=== PATIENT | male | born 1945 | race Caucasian/White ===

== ENCOUNTER 2022-12-03 11:17 | Inpatient (IN) | payer MEDICARE, BC, SELFPAY ==
[2022-12-03] VITALS (15 sets, daily range): BP systolic 91–131; BP diastolic 56–86; PULSE 75–107; RESP 13–23; TEMP 37.8–39.4; O2SAT 96–100; BMI 26.8
--- NOTE | ~2022-12-03 | XR_ITS ---
EXAMINATION: XR retrograde pyelo w/stent RT DATE: 12/04/2022 16:46 INDICATION: Right internal ureteral stent placement TECHNIQUE: Fluoroscopic images from a right internal ureteral stent placement are submitted for sharif dorman 23 seconds of fluoroscopy time. 4 fluoroscopic images. FINDINGS: There is a right double-J internal ureteral stent projecting in expected position, with proximal Crowell loop at the level of the renal pelvis and distal loop in the pelvis within the bladder lumen. IMPRESSION: 1. Right internal ureteral stent placement. Please refer to real-time procedural findings for mimi keita. Reviewed, dictated and finalized at location A. IMPRESSION: 1. Right internal ureteral stent placement. Please refer to real-time procedu ral findings for details.
--- NOTE | ~2022-12-03 | CT_ITS ---
EXAMINATION: CT abdomen pelvis w con DATE: 12/03/2022 14:13 INDICATION: Right flank pain. Fever. TECHNIQUE: Computed tomography (CT) of the abdomen and pelvis was performed with 100 mL Omnipaque 350 intravenous contrast. Automated exposure control and iterative reconstruction technique were employe d. The dose-length product was 657.44 mGy-cm. COMPARISON: None. FINDINGS: The visualized portions of the lung bases demonstrate mild atelectasis. There is mild scarr ing and bronchiectasis in right middle lobe. No pleural effusion. The heart size is normal. There is a small pericardial effusion. There are coronary artery calcifications. Median sternotomy wires are n oted. There is a small sliding hiatal hernia. Calcifications in the liver and spleen are consistent w ith old granulomatous disease. There are cysts in the liver measuring up to 6 mm. There are gallstone s in the gallbladder, which is normal in size. The pancreas and adrenal glands are normal. There is c ortical thinning of the kidneys. There are cysts in the kidneys measuring up to 4.1 cm on the left. T here is moderate right hydronephrosis and hydroureter. The distal right ureter is small in caliber. T here are changes of prostatectomy. There is diffuse bladder wall thickening. There are bilateral ingu inal hernias containing fat. Stool distends the rectum. There is diverticulosis of the colon without evidence of diverticulitis. The appendix is not visualized. There is calcified atherosclerosis of the aorta and many of the other arteries. There are no pathologically enlarged lymph nodes. There is no free intraperitoneal fluid. There are chronic bilateral L5 pars defects. There is 11 mm anterolisthes is of L5 on S1. There is severe lumbar spondylosis. IMPRESSION: 1. Small pericardial effusion. 2. Moderate right hydronephrosis and hydroureter, which may be secondary to distal stricture. No abno rmal mass or stone identified. 3. Diffuse bladder wall thickening, which may be secondary to chronic outlet obstruction or cystitis. 4. Bilateral inguinal hernias containing fat. Reviewed, dictated and finalized at location A. IMPRESSION: 1. Small pericardial effusion. 2. Moderate right hydronephrosis and hydroureter, which may be secondary to dis mark stricture. No abnormal mass or stone identified. 3. Diffuse bladder wall thickening, which may be secondary to chronic outlet ob struction or cystitis. 4. Bilateral inguinal hernias containing fat.
--- NOTE | ~2022-12-03 | XR_ITS ---
EXAMINATION: XR abdomen/kub 1V DATE: 12/05/2022 18:55 INDICATION: Abdominal pain TECHNIQUE: A supine view of the abdomen on 2 radiographs was obtained. COMPARISON: 12/04/2022 FINDINGS: Again seen is a right internal ureteral stent with loops formed in expected location of the right robles al pelvis and the bladder. No dilated loops of bowel to suggest obstruction. Likely suture anchors ar e seen at the bilateral pubic bodies. Small heterotopic ossicle projects of the right lower quadrant of the abdomen. Median sternotomy wires at the lower chest. Moderate to severe lower lumbar spondylos is. IMPRESSION: 1. Right internal ureteral stent in unchanged expected position. Reviewed, dictated and finalized at location A.
--- NOTE | ~2022-12-03 | XR_ITS ---
EXAMINATION: XR chest 2V DATE: 12/03/2022 13:04 INDICATION: Fever. TECHNIQUE: Frontal and lateral views of the chest were obtained. COMPARISON: None. FINDINGS: There are airspace opacities in right middle lobe. No pleural effusion or pneumothorax. The heart size is normal. Median sternotomy wires are noted. IMPRESSION: 1. Airspace opacities in right middle lobe, consistent with atelectasis versus pneumonia. Reviewed, dictated and finalized at location A.
[2022-12-03 11:45] LABS: Basophils Percent Auto 0.1 % (0.2-1.2); Hematocrit 30.7 % (42.0-52.0); Hemoglobin 10.1 g/dL (14.0-18.0); Immature Granulocyte Absolute 0.14 K/mm3 (0.00-0.031); Immature Granulocyte Percent A 0.9 % (0-0.5); Lymphocytes Absolute Auto 1.27 K/mm3 (0.9-3.2); Lymphocytes Percent Auto 8.3 % (18.3-44.2); Mean Corpuscular HGB Conc 32.9 g/dl (32-36); Mean Corpuscular Hemoglobin 31.2 pg (26-34); Mean Corpuscular Volume 94.8 fl (80-100); Mean Platelet Volume 8.4 fl (7.4-10.4); Monocytes Percent Auto 6.4 % (2.6-8.5); Neutrophils Absolute Auto 12.8 K/mm3 (1.3-6.7); Neutrophils Percent Auto 84.3 % (45.5-73.1); Platelet Count Result 211 k/mm3 (150-375); Red Blood Count 3.24 M/mm3 (4.6-6.20); Red Cell Distribution Width 15.7 % (11.5-14.5); White Blood Count 15.2 K/mm3 (4.5-10.0)
[2022-12-03 11:56] LABS: Alanine Aminotransferase 31 U/L (6-50); Alkaline Phosphatase 85 U/L (38-126); Anion Gap 13 mmol/L (8-16); Aspartate Amino Transferase 34 U/L (17-59); Blood Urea Nitrogen 33 mg/dL (9-20); Calcium 9.2 mg/dL (8.4-10.2); Carbon Dioxide 17 mmol/L (22-30); Chloride 107 mmol/L (98-107); Estimated CRCL calculation 38 ml/min; Estimated Glomerular Filt Rate 46; Glucose 131 mg/dL (65-110); Lipase 97 U/L (23-300); Potassium 3.7 mmol/L (3.4-5.0); Sodium 137 mmol/L (137-145)
[2022-12-03] MEDS: LACTATED RINGERS 1,000 ML 999 ML IV CONT ×2 (13:21→14:51)
[2022-12-03] MEDS: ONDANSETRON INJ 4 MG/2 ML VIAL IV PUSH (13:21)
--- NOTE | 2022-12-03 14:23 | ED.GENADULT ---
HPI - General Adult General Chief complaint: Nausea/Vomiting/Diarrhea Stated complaint: N/V X1D Time Seen by Provider: 12/03/22 12:32 Source: patient, family and RN notes reviewed Mode of arrival: ambulatory Limitations: no limitations History of Present Illness HPI narrative: This is a 76 year old male who presents for evaluation of right flank pain with nausea and vomiting. Patient states 3 weeks ago he was having fever, chills, dysuria and he was diagnosed with a UTI. He was prescribed an antibiotic and he states he completed the course 2 weeks ago. He states he felt better but yesterday he develop right flank pain with weakness and nausea with vomiting. He states his flank pain has resolved. He had nausea and vomiting today. He also reports dry cough for a few days. Patient found to have fever in ER. Patient has open heart surgery at [place] in August. Related Data Home Medications Medication Instructions Recorded Confirmed ascorbic acid (vitamin C) 500 mg 500 mg PO DAILY 02/08/19 02/08/19 capsule,extended release (Vitamin C) atorvastatin 40 mg tablet 40 mg PO DAILY 02/08/19 02/08/19 enalapril maleate 20 mg tablet 20 mg PO DAILY 02/08/19 02/08/19 flaxseed oil 1,000 mg capsule 1,000 mg PO DAILY 02/08/19 02/08/19 garlic 1,000 mg capsule 1,000 mg PO DAILY 02/08/19 02/08/19 glucosamine sulf dipot cap PO 02/08/19 chlr,msm,chond 550 mg-C 30 mg-ramo 1 mg capsule (Glucosamine Chondroitin) multivit with minerals-iron 18 tablet PO 02/08/19 mg-folic ac 400 mcg-vit K 25 mcg tablet (Multi-Day Plus Minerals) omega 1-pbn-qar-fish oil 1,000 mg 1 cap PO DAILY 02/08/19 02/08/19 (120 mg-180 mg) capsule (Fish Oil) valacyclovir 1 gram tablet 1,000 mg PO DAILY 02/08/19 02/08/19 vitamins A and D3 in cod liver oil cap PO 02/08/19 1,250 unit-135 unit capsule (cod liver oil) atorvastatin 40 mg tablet 40 mg PO DAILY 12/03/22 12/03/22 carvedilol 6.25 mg tablet 6.25 mg PO BID 12/03/22 12/03/22 melatonin 5 mg tablet 5 mg PO HS PRN Insomnia 12/03/22 12/03/22 Allergies Allergy/AdvReac Type Severity Reaction Status Date / Time Bumble Bee Allergy Unknown Swelling Uncoded 12/03/22 12:23 Review of Systems Constitutional: Constitutional: Reports chills and Reports weakness Cardiovascular: Cardiovascular: Denies syncope, Denies rapid heart rate, Denies irregular heart rhythm, Denies leg edema and Denies dyspnea Respiratory: Respiratory: Denies chest congestion, Denies hemoptysis, Denies excessive phlegm production and Denies dyspnea Gastrointestinal: Gastrointestinal: Denies abdominal pain, Denies hematochezia, Denies diarrhea, Reports nausea and Reports vomiting Genitourinary: Genitourinary: Denies hematuria, Reports dysuria, Denies penile discharge, Denies testicular pain and Reports urinary frequency Musculoskeletal: Musculoskeletal: Reports back pain, Denies joint swelling, Denies loss of height and Denies muscle weakness Neurologic: Denies syncope, Denies focal weakness and Denies weakness PMFSH Past Medical History Medical History Hyperlipidemia Hypertension DAVE (obstructive sleep apnea) Prostate CA Surgical History Surgical History (Updated 12/03/22 @ 14:25 by Arely Lewis MD) H/O prostatectomy Social History Social History (Updated 12/03/22 @ 14:25 by Arely Lewis MD) Smoking status: Never smoker Alcohol intake: never Substance use: never Substance use type: does not use Lack of Transportation: No Lack of Food: Never True Current Housing: I Have Housing Concerned About Future Housing: No Difficulty Paying Gas/Electric Bills: No Difficulty Paying for Meds: No Currently Unemployed: No Education: Decline to Answer Difficulty w/ Childcare or Family Care: No Gender identity (if verbalized by the patient): Male Spiritual care concerns: No Exam Const: General: no acute distress, alert and i
[2022-12-03 14:29] LABS: Influenza A QL RT-PCR Negative (Negative); Influenza B QL RT-PCR Negative (Negative); SARS-CoV-2 RNA PCR Negative (Negative)
[2022-12-03] MEDS: ACETAMINOPHEN 500 MG TABLET 1000 MG PO ×2 (14:48→19:56)
[2022-12-03 14:54] LABS: Appearance Urine Cloudy (Clear); Bacteria Urine None Seen /hpf; Bilirubin Urine Negative (Negative); Blood Urine 2+ (Negative); Color Urine Yellow (Yellow); Glucose Urine UA Negative (Negative); Ketones Urine Negative (Negative); Leukocyte Esterase Ur 2+ LEU/UL (Negative); Nitrate Urine Negative (Negative); Non Pathogenic Casts 0-2; Protein Urine 1+ mg/dL (Negative); RBC Urine 0-2 /hpf (0-2); Specific Grav Ur 1.025 (1.001-1.035); Squamous Epithelial Cell Urine None seen /hpf (Few); Urobilinogen Urine 0.2 mg/dL (<2.0); WBC Urine 21-50 /hpf
[2022-12-03 14:57] LABS: Add Urine Microscopic? YES
[2022-12-03 15:33] LABS: Lactic Acid Reflex 1.4 mmol/L (0.7-2.0)
--- NOTE | 2022-12-03 18:14 | PC.NURSE ---
Spoke with Jany MADRIGAL at [facility] transfer center regarding pt and was told that once they have a bed to release they will call back.
[2022-12-03] MEDS: SODIUM CHLORIDE 0.9% IV 1,000 ML 125 ML IV CONT (19:48)
--- NOTE | 2022-12-03 21:08 | ADMGEN ---
This patient, Dereje Aparicio, was admitted to 2 Medical Room 242-. Patient/family oriented to hospital policies and general routines including ID bracelet, bed and alarms, visiting hours, pain management, procedures, bathroom and other care routines, personal items, smoking policy, room service/diet, and visiting hours. Information on how to activate the Rapid Response Team has been discussed. Patient/Family are encouraged to report perceived risks to care and to ask questions if they do not understand what they are told or what they should do.
--- NOTE | 2022-12-03 21:33 | PM.IMHP ---
H&P: HPI History of Present Illness Date/Time: 12/03/22 21:33 Chief Complaint: Flank pain Narrative: This is a 76-year-old male with past medical history significant for dyslipidemia hypertension obstructive sleep apnea prostate cancer. Patient presents to the emergency room due to flank pain nausea vomiting fever had completed course of antibiotics in the outpatient setting. Patient usually gets his care at [place] and initial arrangements were to transfer patient over there however patient declined transfer to [facility] and is currently being admitted to our facility. Preliminary workup was significant for CBC with leukocyte count of 15,000, chemistry panel BUN was 33 creatinine 1.5 a urinalysis shows wbc's 21-50 white blood cells per high-power field EXAMINATION: XR chest 2V DATE: 12/03/2022 13:04 INDICATION: Fever. TECHNIQUE: Frontal and lateral views of the chest were obtained. COMPARISON: None. FINDINGS: There are airspace opacities in right middle lobe. No pleural effusion or pneumothorax. The heart size is normal. Median sternotomy wires are noted. IMPRESSION: 1. Airspace opacities in right middle lobe, consistent with atelectasis versus pneumonia. EXAMINATION: CT abdomen pelvis w con DATE: 12/03/2022 14:13 INDICATION: Right flank pain. Fever. TECHNIQUE: Computed tomography (CT) of the abdomen and pelvis was performed with 100 mL Omnipaque 350 intravenous contrast. Automated exposure control and iterative reconstruction technique were employed. The dose-length product was 657.44 mGy-cm. COMPARISON: None. FINDINGS: The visualized portions of the lung bases demonstrate mild atelectasis. There is mild scarring and bronchiectasis in right middle lobe. No pleural effusion. The heart size is normal. There is a small pericardial effusion. There are coronary artery calcifications. Median sternotomy wires are noted. There is a small sliding hiatal hernia. Calcifications in the liver and spleen are consistent with old granulomatous disease. There are cysts in the liver measuring up to 6 mm. There are gallstones in the gallbladder, which is normal in size. The pancreas and adrenal glands are normal. There is cortical thinning of the kidneys. There are cysts in the kidneys measuring up to 4.1 cm on the left. There is moderate right hydronephrosis and hydroureter. The distal right ureter is small in caliber. There are changes of prostatectomy. There is diffuse bladder wall thickening. There are bilateral inguinal hernias containing fat. Stool distends the rectum. There is diverticulosis of the colon without evidence of diverticulitis. The appendix is not visualized. There is calcified atherosclerosis of the aorta and many of the other arteries. There are no pathologically enlarged lymph nodes. There is no free intraperitoneal fluid. There are chronic bilateral L5 pars defects. There is 11 mm anterolisthesis of L5 on S1. There is severe lumbar spondylosis. IMPRESSION: 1. Small pericardial effusion. 2. Moderate right hydronephrosis and hydroureter, which may be secondary to distal stricture. No abnormal mass or stone identified. 3. Diffuse bladder wall thickening, which may be secondary to chronic outlet obstruction or cystitis. 4. Bilateral inguinal hernias containing fat. Review of Systems Review of Systems: ROS unobtainable: Yes unobtainable due to mental status (Lethargy/obtundation) [facility] Past Medical History Medical History (Updated 12/04/22 @ 05:17 by Johana Kaur MD) Hyperlipidemia Hypertension DAVE (obstructive sleep apnea) Prostate CA Surgical History Surgical History (Updated 12/03/22 @ 14:25 by Arely Lewis MD) H/O prostatectomy Social History Social History (Updated 12/03/22 @ 14:25 by Arely Lewis MD) Smoking status: Never smoker Alcohol intake: never Substance use: never Substance use type: does not use Lack of Transportation: No Lack of Food: Never True Current
--- NOTE | 2022-12-03 22:06 | PC.NURSE ---
Went to do med rec with patient. States he doesn't know what medications he takes and we can just do it tomorrow .
[2022-12-04] VITALS (14 sets, daily range): BP systolic 93–122; BP diastolic 51–66; PULSE 60–97; RESP 14–32; TEMP 36.7–38.5; O2SAT 95–100; BMI 26.8
[2022-12-04] MEDS: SODIUM CHLORIDE 0.9% IV 1,000 ML 125 ML IV CONT ×2 (04:03→17:59)
--- NOTE | 2022-12-04 04:30 | WPDURCON ---
Assessment and Plan Assessment and plan (1) Hydronephrosis, right: Code(s): N13.30 - Unspecified hydronephrosis Status: Acute (2) JUAN (acute kidney injury): Code(s): N17.9 - Acute kidney failure, unspecified Status: Acute (3) Acute UTI: Code(s): N39.0 - Urinary tract infection, site not specified Status: Acute Assessment and Plan: Acute, febrile urinary tract infection with right hydronephrosis likely secondary to mid ureteral stricture Patient has reluctance to proceed with ureteral stent placement given his history of strep intolerance in the past. I offered him a percutaneous nephrostomy but, ultimately, we elected for cystoscopy with right ureteral stent placement In the future he will need more aggressive intervention for his right ureteral obstruction which appears to be from a ureteral stricture (based on patient's prior history and CT findings) Plan Urology Consult Note HPI Date Seen: 12/04/22 Requesting Physician: Johana Kaur MD Primary Care Provider: Walter Marrero, Consult Narrative Narrative: Dereje Aparicio is a 76 year old male with a fairly extensive urological history, most of which she has been cared for [facility]. In the past he has had a left percutaneous nephrolithotomy for a large stone. More recently he has undergone right ureteroscopy with laser lithotripsy for right ureteral stone. Following that he developed ureteral stricture. There was consideration for endoscopic ureteral dilatation with stent placement. The patient opted against because of his anesthesia risk. He also reports measurable stent irritation with indwelling stents in the past. He presents to the emergency department here with fevers chills nausea vomiting and right flank pain. Imaging demonstrates moderate right hydroureteronephrosis with apparent stricture and the mid distal right ureter. Review of Systems Review of Systems: All systems reviewed & are unremarkable except as noted in HPI and below PMFSH Past Medical History Medical History Hyperlipidemia Hypertension DAVE (obstructive sleep apnea) Prostate CA Surgical History Surgical History (Updated 12/03/22 @ 14:25 by Arely Lewis MD) H/O prostatectomy Social History Social History (Updated 12/03/22 @ 14:25 by Arely Lewis MD) Smoking status: Never smoker Alcohol intake: never Substance use: never Substance use type: does not use Lack of Transportation: No Lack of Food: Never True Current Housing: I Have Housing Concerned About Future Housing: No Difficulty Paying Gas/Electric Bills: No Difficulty Paying for Meds: No Currently Unemployed: No Education: Decline to Answer Difficulty w/ Childcare or Family Care: No Gender identity (if verbalized by the patient): Male Spiritual care concerns: No Meds Home Medications and Allergies Home Medications Medication Instructions Recorded Confirmed Type ascorbic acid (vitamin C) 500 mg 500 mg PO DAILY 02/08/19 02/08/19 History capsule,extended release (Vitamin C) atorvastatin 40 mg tablet 40 mg PO DAILY 02/08/19 02/08/19 History enalapril maleate 20 mg tablet 20 mg PO DAILY 02/08/19 02/08/19 History flaxseed oil 1,000 mg capsule 1,000 mg PO DAILY 02/08/19 02/08/19 History garlic 1,000 mg capsule 1,000 mg PO DAILY 02/08/19 02/08/19 History glucosamine sulf dipot cap PO 02/08/19 History chlr,msm,chond 550 mg-C 30 mg-ramo 1 mg capsule (Glucosamine Chondroitin) multivit with minerals-iron 18 tablet PO 02/08/19 History mg-folic ac 400 mcg-vit K 25 mcg tablet (Multi-Day Plus Minerals) omega 1-jbo-bjq-fish oil 1,000 mg 1 cap PO DAILY 02/08/19 02/08/19 History (120 mg-180 mg) capsule (Fish Oil) valacyclovir 1 gram tablet 1,000 mg PO DAILY 02/08/19 02/08/19 History vitamins A and D3 in cod liver oil cap PO 02/08/19 History 1,
[2022-12-04] MEDS: cefTRIAXone 2 GM/NS 100 ML 2 GM/100 ML BAG IVPB (04:31)
--- NOTE | 2022-12-04 04:35 | WPDHPUPDATE1 ---
History and Physical Update Update Date/Time: 12/04/22 04:35 History and Physical has been reviewed, including an updated exam of the patient. There are NO changes in the patient's condition. Risks, benefits, and alternatives have been discussed and questions answered. Patient agrees to proceed with procedure.
[2022-12-04 05:14] LABS: Basophils Percent Auto 0.2 % (0.2-1.2); Hematocrit 28.1 % (42.0-52.0); Hemoglobin 8.9 g/dL (14.0-18.0); Immature Granulocyte Absolute 0.27 K/mm3 (0.00-0.031); Immature Granulocyte Percent A 2.7 % (0-0.5); Lymphocytes Absolute Auto 0.98 K/mm3 (0.9-3.2); Lymphocytes Percent Auto 9.7 % (18.3-44.2); Mean Corpuscular HGB Conc 31.7 g/dl (32-36); Mean Corpuscular Hemoglobin 31.4 pg (26-34); Mean Corpuscular Volume 99.3 fl (80-100); Mean Platelet Volume 9.4 fl (7.4-10.4); Monocytes Absolute Auto 0.8 K/mm3 (0.1-0.6); Monocytes Percent Auto 7.9 % (2.6-8.5); Neutrophils Absolute Auto 8.1 K/mm3 (1.3-6.7); Neutrophils Percent Auto 79.5 % (45.5-73.1); Platelet Count Result 131 k/mm3 (150-375); Red Blood Count 2.83 M/mm3 (4.6-6.20); Red Cell Distribution Width 15.5 % (11.5-14.5); White Blood Count 10.1 K/mm3 (4.5-10.0)
[2022-12-04] MEDS: AZITHROMYCIN 500 MG/NS 250 ML 500 MG/250 ML BAG 250 MG IVPB (05:14)
[2022-12-04 05:33] LABS: Alanine Aminotransferase 25 U/L (6-50); Albumin Level 3.3 g/dL (3.5-5.1); Alkaline Phosphatase 72 U/L (38-126); Anion Gap 10 mmol/L (8-16); Aspartate Amino Transferase 25 U/L (17-59); Bilirubin,Total 0.8 mg/dL (0.2-1.3); Blood Urea Nitrogen 27 mg/dL (9-20); Calcium 8.1 mg/dL (8.4-10.2); Carbon Dioxide 17 mmol/L (22-30); Chloride 109 mmol/L (98-107); Estimated CRCL calculation 43 ml/min; Estimated Glomerular Filt Rate 54; Glucose 109 mg/dL (65-110); Potassium 3.2 mmol/L (3.4-5.0); Sodium 136 mmol/L (137-145)
[2022-12-04] MEDS: ACETAMINOPHEN 325 MG TABLET 650 MG PO ×2 (08:36→17:08)
--- NOTE | 2022-12-04 12:59 | PM.IMPN ---
Progress Note: A&P Assessment and Plan (1) Sepsis: Code(s): A41.9 - Sepsis, unspecified organism Status: Acute Assessment and Plan: Secondary to UTI. Antibiotic therapy initiated. Continue IV fluids (2) Acute UTI: Code(s): N39.0 - Urinary tract infection, site not specified Status: Acute Assessment and Plan: UA with 2+ leukocyte esterase, 2+ blood and 21-50 wbc's. Rocephin started. Urine culture pending. Tailor antibiotics to culture results. (3) Hydronephrosis, right: Code(s): N13.30 - Unspecified hydronephrosis Status: Acute Assessment and Plan: CT scan showing mild ureteral stricture Urology has been consulted Plan for ureteral stent placement today. (4) JUAN (acute kidney injury): Code(s): N17.9 - Acute kidney failure, unspecified Status: Acute Assessment and Plan: Receiving IV fluids Continue to monitor BUN and creatinine Will hold enalapril (5) Lung infiltrate: Code(s): R91.8 - Other nonspecific abnormal finding of lung field Status: Acute Assessment and Plan: Chest x-ray showing atelectasis versus pneumonia. On Rocephin and Zithromax Subjective Date/time seen: 12/04/22 12:59 Interval history: Patient doing well and has minimal complaints. Plan for stent placement today. Exam Narrative: GENERAL: Comfortable, no acute distress HENMT: moist mucous membranes EYES: EOM intact b/l NECK: no lymphadenopathy RESPIRATORY: clear to auscultation CARDIO: RRR GI: soft, nontender, bowel sounds present SKIN: no rashes EXTREMITIES: no edema, redness or tenderness Objective Data Vital Signs Vital Signs: Vital Signs - 24 hr 12/03/22 13:25 12/03/22 13:26 12/03/22 13:28 Temperature Pulse Rate 95 100 105 H Respiratory Rate Blood Pressure 109/65 102/62 91/68 L Pulse Oximetry Oxygen Delivery 12/03/22 13:32 12/03/22 14:52 12/03/22 15:19 Temperature Pulse Rate 99 98 99 Respiratory Rate 15 18 15 Blood Pressure 118/59 L 117/61 108/60 Pulse Oximetry 99 100 97 Oxygen Delivery 12/03/22 15:58 12/03/22 16:32 12/03/22 18:09 Temperature Pulse Rate 97 94 97 Respiratory Rate 18 13 15 Blood Pressure 110/64 101/64 127/60 Pulse Oximetry 96 97 99 Oxygen Delivery 12/03/22 18:45 12/03/22 19:47 12/03/22 20:47 Temperature 102.4 F H 102.9 F H Pulse Rate 97 105 H 75 Respiratory Rate 14 17 15 Blood Pressure 131/69 128/67 129/86 Pulse Oximetry 99 98 100 Oxygen Delivery 12/03/22 21:17 12/03/22 21:17 12/04/22 06:00 Temperature 100.1 F H 99.8 F H Pulse Rate 97 97 Respiratory Rate 18 18 Blood Pressure 113/61 118/63 Pulse Oximetry 98 95 Oxygen Delivery Room Air 12/04/22 08:36 12/04/22 09:34 12/04/22 09:42 Temperature 100.4 F H 98.2 F Pulse Rate Respiratory Rate Blood Pressure Pulse Oximetry 96 Oxygen Delivery Room Air Intake/Output Intake/Output: Intake & Output 12/01/22 12/02/22 12/03/22 12/04/22 23:59 23:59 23:59 23:59 Intake Total 2049 1719 Balance 2049 172 Meds/Results Medications: Active Medications Generic Name Dose Route Start Last Admin Trade Name Freq PRN Reason Stop Dose Admin Acetaminophen 650 mg 12/04/22 02:00 12/04/22 08:36 Acetaminophen 325 Mg Tablet PO 650 mg Q4H PRN Administration Mild Pain (1-3) or Fever Sodium Chloride 1,000 mls @ 125 mls/hr 12/03/22 19:10 12/04/22 04:03 Normal Saline Iv IV CONT 125 mls/hr .Q8H ELLY Administration Ceftriaxone Sodium 2 gm in 100 mls @ 200 mls/hr 12/04/22 04:00 12/04/22 05:15 Rocephin 2 Gm/Ns 100 Ml IVPB Infused Q24H ELLY Infusion Azithromycin 500 mg in 250 mls @ 250 mls/hr 12/04/22 04:00 12/04/22 05:14 Zithromax IVPB 250 mls/hr Q24H ELLY Administration Ondansetron HCl 4 mg 12/03/22 19:10 Ondansetron Inj 4 Mg/2 Ml Vial IV PUSH Q4H PRN Nausea
--- NOTE | 2022-12-04 14:49 | PC.NURSE ---
To OR. Report given to KAITLIN Champion.
--- NOTE | 2022-12-04 14:57 | WPDANESEPPF ---
Anes - Initial Pre Proc Eval Procedure: Operation Date: 12/04/22 17:00 Proposed Procedures p Cystoscopy,Right Stent Placement - Samm Lees MD Date/Time: 12/04/22 14:57 Surgeon: Johana Kaur MD Pre Op Diagnosis: Sepsis, UTI, Right Obstructive Uropathy Patient Data Age: 76 Gender: M Height: 1.73 m Weight: 80 kg Last Vital Signs Temp 36.8 C 12/04/22 09:34 Pulse 97 12/04/22 06:00 Resp 18 12/04/22 06:00 BP 118/63 12/04/22 06:00 Pulse Ox 96 12/04/22 09:42 O2 Del Method Room Air 12/04/22 09:42 Allergies Allergy/AdvReac Type Severity Reaction Status Date / Time Bumble Bee Allergy Unknown Swelling Uncoded 12/03/22 12:23 Home Medications Medication Instructions Recorded Confirmed Type ascorbic acid (vitamin C) 500 mg 500 mg PO DAILY 02/08/19 02/08/19 History capsule,extended release (Vitamin C) atorvastatin 40 mg tablet 40 mg PO DAILY 02/08/19 02/08/19 History enalapril maleate 20 mg tablet 20 mg PO DAILY 02/08/19 02/08/19 History flaxseed oil 1,000 mg capsule 1,000 mg PO DAILY 02/08/19 02/08/19 History garlic 1,000 mg capsule 1,000 mg PO DAILY 02/08/19 02/08/19 History glucosamine sulf dipot cap PO 02/08/19 History chlr,msm,chond 550 mg-C 30 mg-ramo 1 mg capsule (Glucosamine Chondroitin) multivit with minerals-iron 18 tablet PO 02/08/19 History mg-folic ac 400 mcg-vit K 25 mcg tablet (Multi-Day Plus Minerals) omega 0-yfb-zvm-fish oil 1,000 mg 1 cap PO DAILY 02/08/19 02/08/19 History (120 mg-180 mg) capsule (Fish Oil) valacyclovir 1 gram tablet 1,000 mg PO DAILY 02/08/19 02/08/19 History vitamins A and D3 in cod liver oil cap PO 02/08/19 History 1,250 unit-135 unit capsule (cod liver oil) atorvastatin 40 mg tablet 40 mg PO DAILY 12/03/22 12/03/22 History carvedilol 6.25 mg tablet 6.25 mg PO BID 12/03/22 12/03/22 History melatonin 5 mg tablet 5 mg PO HS PRN Insomnia 12/03/22 12/03/22 History Laboratory Tests 12/03/22 12/03/22 12/03/22 11:39 14:43 15:16 WBC RBC Hgb Hct MCV MCH MCHC RDW Plt Count MPV Immature Gran % (Auto) Neut % (Auto) Lymph % (Auto) [place] % (Auto) Eos % (Auto) Baso % (Auto) Lymph # (Auto) [place] # (Auto) Eos # (Auto) Baso # (Auto) Abs Immat Gran (auto) Absolute Neuts (auto) Absolute Nucleated RBC Nucleated RBC % Sodium Potassium Chloride Carbon Dioxide Anion Gap BUN Creatinine Estim Creat Clear Calc Estimated GFR Glucose Lactic Acid 1.4 mmol/L (0.7-2.0) Calcium Total Bilirubin AST ALT Alkaline Phosphatase Total Protein Albumin Urine Color Yellow (Yellow) Urine Appearance Cloudy H (Clear) Urine pH 5.0 (5.0-9.0) Ur Specific [place] 1.025 (1.001-1.035) Urine Protein 1+ H mg/dL (Negative) Urine Glucose (UA) Negative mg/dL (Negative) Urine Ketones Negative mg/dL (Negative) Ur Blood (Man) 2+ H (Negative) Urine Nitrate Negative (Negative) Urine Bilirubin Negative (Negative) Urine Urobilinogen 0.2 mg/dL (<2.0) Leukocyte Esterase Rfl 2+ H RM/UL (Negative) Urine RBC 0-2 /hpf (0-2) Urine WBC 21-50 H /hpf Ur Squamous Epith Cells None seen /hpf (Few) Urine Bacteria None seen /hpf Urine Casts 0-2 Antibody Identification Inconclusive Antigen Identification TNP SHIRLEY, Complement Interp
--- NOTE | 2022-12-04 16:41 | W.PM.PROC2 ---
Procedure Note - Detailed Date of Procedure 12/04/22 Pre-op Diagnosis Sepsis, UTI, Right Obstructive Uropathy Post-op Diagnosis Same Procedure Performed Cystoscopy, right retrograde pyelography and right ureteral stent placement Surgeon Samm Lees MD Anesthesia General Description of Procedure patient is brought to the operative suite where he has prepped sterile fashion while in dorsal lithotomy position. 2% lidocaine jelly was introduced intraurethrally and a general LMA anesthetic was administered per anesthesia cystoscopy is undertaken with a 19 F rigid cystoscope. There was no urethral stricture. 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 There appears to be mild hyperemia in the posterior bladder wall consistent with radiation cystitis. Mucosa was, otherwise, without christina neoplasm. He has a single orthotopic orifice bilaterally. An 8 F bulb-tipped catheter was used to obtain a right retrograde pyelogram. This shows some narrowing of the distal ureters as it traverses the bladder wall. There also to perhaps be a second area of narrowing at the right UPJ. I opted not to pursue ureteroscopy given his infected urine. A 0.035 in glidewire was advanced to right renal pelvis and a 4.8F variable-length stent is position with proximal coil in the renal pelvis and distal coil in the bladder. Scopes and wires removed. The patient was taken recovery room having tolerated the procedure Pathology None sent Complications No immediate complications Condition Stable Disposition PACU
[2022-12-04] MEDS: LACTATED RINGERS 1,000 ML 30 ML IV CONT (16:46)
[2022-12-04] MEDS: HYOSCYAMINE SULFATE 0.125 MG TABLET PO (17:09)
--- NOTE | 2022-12-04 18:45 | PC.NURSE ---
Spoke to pharmacist at [facility] to attempt to have a completed home medication list. Unable to obtain all at this time.
[2022-12-04] MEDS: TAMSULOSIN HCL 0.4 MG CAPSULE PO (20:12)
[2022-12-05] VITALS (10 sets, daily range): BP systolic 112–138; BP diastolic 51–75; PULSE 42–86; RESP 14–18; TEMP 36.7–38.4; O2SAT 97–99
[2022-12-05] MEDS: ACETAMINOPHEN 325 MG TABLET 650 MG PO (01:14)
[2022-12-05] MEDS: SODIUM CHLORIDE 0.9% IV 1,000 ML 125 ML IV CONT (01:15)
[2022-12-05] MEDS: AZITHROMYCIN 500 MG/NS 250 ML 500 MG/250 ML BAG 250 MG IVPB (03:30)
[2022-12-05] MEDS: cefTRIAXone 2 GM/NS 100 ML 2 GM/100 ML BAG IVPB (04:37)
[2022-12-05 05:36] LABS: Hematocrit 23.4 % (42.0-52.0); Hemoglobin 7.3 g/dL (14.0-18.0); Mean Corpuscular HGB Conc 31.2 g/dl (32-36); Mean Corpuscular Hemoglobin 31.2 pg (26-34); Mean Platelet Volume 9.3 fl (7.4-10.4); Platelet Count Result 108 k/mm3 (150-375); Red Blood Count 2.34 M/mm3 (4.6-6.20); Red Cell Distribution Width 15.5 % (11.5-14.5)
[2022-12-05 05:48] LABS: Alanine Aminotransferase 25 U/L (6-50); Albumin Level 2.7 g/dL (3.5-5.1); Alkaline Phosphatase 67 U/L (38-126); Anion Gap 7 mmol/L (8-16); Aspartate Amino Transferase 32 U/L (17-59); Bilirubin,Total 0.4 mg/dL (0.2-1.3); Blood Urea Nitrogen 20 mg/dL (9-20); Carbon Dioxide 18 mmol/L (22-30); Chloride 111 mmol/L (98-107); Estimated CRCL calculation 47 ml/min; Estimated Glomerular Filt Rate 59; Glucose 95 mg/dL (65-110); Potassium 2.7 mmol/L (3.4-5.0); Sodium 136 mmol/L (137-145)
[2022-12-05] MEDS: KCL 20 MEQ/SW 100 ML 100 ML 50 MEQ IVPB (06:21)
[2022-12-05] MEDS: POTASSIUM CHLORIDE 20 MEQ PACKET (FOR LIQUID) 40 MEQ PO (06:22)
[2022-12-05] MEDS: amLODIPine BESYLATE 2.5 MG TABLET PO (09:01)
[2022-12-05] MEDS: carvediloL 6.25 MG TABLET PO (09:01)
[2022-12-05 12:02] LABS: Potassium 3.3 mmol/L (3.4-5.0)
[2022-12-05 12:07] LABS: Anion Gap 9 mmol/L (8-16); Blood Urea Nitrogen 18 mg/dL (9-20); Calcium 7.3 mg/dL (8.4-10.2); Carbon Dioxide 16 mmol/L (22-30); Chloride 112 mmol/L (98-107); Estimated CRCL calculation 47 ml/min; Estimated Glomerular Filt Rate 59; Glucose 115 mg/dL (65-110); Potassium 3.3 mmol/L (3.4-5.0); Sodium 137 mmol/L (137-145)
--- NOTE | 2022-12-05 13:17 | PM.IMPN ---
Progress Note: A&P Assessment and Plan (1) Sepsis: Code(s): A41.9 - Sepsis, unspecified organism Status: Acute Assessment and Plan: Secondary to UTI. Antibiotic therapy initiated. Continue IV fluids (2) Acute UTI: Code(s): N39.0 - Urinary tract infection, site not specified Status: Acute Assessment and Plan: UA with 2+ leukocyte esterase, 2+ blood and 21-50 wbc's. Rocephin started. Urine culture positive for Klebsiella pneumonia Tailor antibiotics to culture results. Blood cultures with g negative bacilli (3) Hydronephrosis, right: Code(s): N13.30 - Unspecified hydronephrosis Status: Acute Assessment and Plan: CT scan showing mild ureteral stricture Urology has been consulted Plan for ureteral stent placement today. (4) JUAN (acute kidney injury): Code(s): N17.9 - Acute kidney failure, unspecified Status: Acute Assessment and Plan: Receiving IV fluids Continue to monitor BUN and creatinine Will hold enalapril (5) Lung infiltrate: Code(s): R91.8 - Other nonspecific abnormal finding of lung field Status: Acute Assessment and Plan: Chest x-ray showing atelectasis versus pneumonia. On Rocephin and Zithromax Subjective Date/time seen: 12/05/22 13:17 Interval history: Patient doing well. He states that he is urinating without difficulty. He has not appetite and eating well. Currently waiting on blood cultures to return. Exam Narrative: GENERAL: Comfortable, no acute distress HENMT: moist mucous membranes EYES: EOM intact b/l NECK: no lymphadenopathy RESPIRATORY: clear to auscultation CARDIO: RRR GI: soft, nontender, bowel sounds present SKIN: no rashes EXTREMITIES: no edema, redness or tenderness Objective Data Vital Signs Vital Signs: Vital Signs - 24 hr 12/04/22 14:57 12/04/22 16:46 12/04/22 17:00 Temperature 101.3 F H 100.2 F H 100.3 F H Pulse Rate 94 89 88 Respiratory Rate 18 32 H 20 Blood Pressure 118/63 93/51 L 106/53 L Pulse Oximetry 96 100 100 Oxygen Delivery Room Air Simple Face Mask Simple Face Mask Oxygen Flow Rate 6 6 12/04/22 17:15 12/04/22 17:30 12/04/22 18:05 Temperature 99.9 F H 98.6 F Pulse Rate 82 78 79 Respiratory Rate 20 18 16 Blood Pressure 98/53 L 102/66 97/54 L Pulse Oximetry 97 97 98 Oxygen Delivery Room Air Room Air Oxygen Flow Rate 12/04/22 18:40 12/04/22 17:45 12/04/22 18:35 Temperature 98.1 F 98.8 F 98.2 F Pulse Rate 60 75 77 Respiratory Rate 14 16 18 Blood Pressure 122/61 107/60 108/61 Pulse Oximetry 100 97 98 Oxygen Delivery Oxygen Flow Rate 12/04/22 21:43 12/05/22 01:12 12/05/22 01:14 Temperature 99.5 F 101.2 F H 101.2 F H Pulse Rate 76 86 Respiratory Rate 16 16 Blood Pressure 103/56 L 134/71 Pulse Oximetry 99 98 Oxygen Delivery Oxygen Flow Rate 12/05/22 02:14 12/05/22 02:14 12/05/22 06:24 Temperature 99.8 F H 99.8 F H 98.0 F Pulse Rate 73 Respiratory Rate 14 Blood Pressure 137/75 Pulse Oximetry 99 Oxygen Delivery Oxygen Flow Rate 12/05/22 09:01 12/05/22 08:58 12/05/22 08:00 Temperature 98.2 F Pulse Rate 77 71 Respiratory Rate 18 Blood Pressure 113/63 Pulse Oximetry 97 Oxygen Delivery Room Air Oxygen Flow Rate Intake/Output Intake/Output: Intake & Output 12/02/22 12/03/22 12/04/22 12/05/22 23:59 23:59 23:59 23:59 Intake Total 0 3440 1670 Output Total 200 550 Balance 0 3240 1120 Meds/Results Medications: Active Medications Generic Name Dose Route Start Last Admin Trade Name Freq PRN Reason Stop Dose Admin Acetaminophen 650 mg 12/04/22 02:00 12/05/22 01:14 Acetaminophen 325 Mg Tablet PO 650 mg Q4H PRN Administration Mild Pain (1-3) or Fever Amlodipine Besylate 2.5 mg 12/05/22 09:00 12/05/22 09:01 Amlodipine Besylate 2.5 Mg Tablet PO 2.5 mg DAILY [facility]
[2022-12-05] MEDS: SODIUM CHLORIDE 0.9% IV 1,000 ML 75 ML IV CONT (15:16)
[2022-12-05 19:20] LABS: Anion Gap 9 mmol/L (8-16); Blood Urea Nitrogen 19 mg/dL (9-20); Calcium 7.3 mg/dL (8.4-10.2); Carbon Dioxide 15 mmol/L (22-30); Chloride 112 mmol/L (98-107); Estimated CRCL calculation 51 ml/min; Estimated Glomerular Filt Rate > 60; Glucose 109 mg/dL (65-110); Magnesium 1.4 mg/dL (1.6-2.3); Potassium 3.4 mmol/L (3.4-5.0); Sodium 136 mmol/L (137-145)
[2022-12-05] MEDS: TAMSULOSIN HCL 0.4 MG CAPSULE PO (20:18)
[2022-12-05] MEDS: traZODone HCL 50 MG TABLET PO (20:19)
[2022-12-05] MEDS: HYDROcodone/acetaminophen (*CRX) 5-325 MG TABLET 1 TAB PO (20:19)
[2022-12-06] VITALS (11 sets, daily range): BP systolic 117–142; BP diastolic 63–75; PULSE 65–88; RESP 14–16; TEMP 36.7–36.9; O2SAT 98–99
[2022-12-06] MEDS: cefTRIAXone 2 GM/NS 100 ML 2 GM/100 ML BAG IVPB (03:16)
[2022-12-06] MEDS: AZITHROMYCIN 500 MG/NS 250 ML 500 MG/250 ML BAG 250 MG IVPB (04:06)
[2022-12-06 05:16] LABS: Basophils Percent Auto 0.2 % (0.2-1.2); Eosinophils Absolute Auto 0.1 K/mm3 (0-0.3); Eosinophils Percent Auto 2.5 % (0-4.4); Hematocrit 25.6 % (42.0-52.0); Hemoglobin 7.8 g/dL (14.0-18.0); Immature Granulocyte Absolute 0.03 K/mm3 (0.00-0.031); Immature Granulocyte Percent A 0.7 % (0-0.5); Lymphocytes Absolute Auto 0.68 K/mm3 (0.9-3.2); Lymphocytes Percent Auto 15.2 % (18.3-44.2); Mean Corpuscular HGB Conc 30.5 g/dl (32-36); Mean Corpuscular Hemoglobin 31.1 pg (26-34); Mean Platelet Volume 9.4 fl (7.4-10.4); Monocytes Absolute Auto 0.4 K/mm3 (0.1-0.6); Monocytes Percent Auto 8.5 % (2.6-8.5); Neutrophils Absolute Auto 3.3 K/mm3 (1.3-6.7); Neutrophils Percent Auto 72.9 % (45.5-73.1); Platelet Count Result 125 k/mm3 (150-375); Red Blood Count 2.51 M/mm3 (4.6-6.20); Red Cell Distribution Width 14.9 % (11.5-14.5); White Blood Count 4.5 K/mm3 (4.5-10.0)
[2022-12-06 05:29] LABS: Alanine Aminotransferase 40 U/L (6-50); Albumin Level 2.9 g/dL (3.5-5.1); Alkaline Phosphatase 75 U/L (38-126); Anion Gap 9 mmol/L (8-16); Aspartate Amino Transferase 52 U/L (17-59); Bilirubin,Total 0.3 mg/dL (0.2-1.3); Blood Urea Nitrogen 15 mg/dL (9-20); Calcium 7.2 mg/dL (8.4-10.2); Carbon Dioxide 17 mmol/L (22-30); Chloride 112 mmol/L (98-107); Estimated CRCL calculation 55 ml/min; Estimated Glomerular Filt Rate > 60; Glucose 92 mg/dL (65-110); Sodium 138 mmol/L (137-145)
[2022-12-06] MEDS: SODIUM CHLORIDE 0.9% IV 1,000 ML 75 ML IV CONT (06:14)
[2022-12-06] MEDS: POTASSIUM CHLORIDE 20 MEQ ER TABLET 40 MEQ PO ×2 (08:44→16:01)
[2022-12-06] MEDS: ASPIRIN 81 MG ENTERIC TABLET PO (08:45)
[2022-12-06] MEDS: amLODIPine BESYLATE 2.5 MG TABLET PO (08:45)
[2022-12-06] MEDS: carvediloL 6.25 MG TABLET PO ×2 (08:45→17:03)
[2022-12-06] MEDS: CHOLECALCIFEROL 1,000 UNITS TABLET 5000 UNITS PO (08:46)
[2022-12-06] MEDS: PANTOPRAZOLE 40 MG TABLET PO (08:46)
[2022-12-06] MEDS: FLUOROMETHOLONE 0.1% OP SUSP 5 ML BTL 1 DROP RIGHT EYE (08:46)
[2022-12-06] MEDS: CYANOCOBALAMIN 1,000 MCG TABLET 1000 MCG PO (08:46)
[2022-12-06] MEDS: valACYclovir HCL 500 MG TABLET 1000 MG PO (08:47)
[2022-12-06 12:56] LABS: Hematocrit 24.4 % (42.0-52.0); Hemoglobin 7.6 g/dL (14.0-18.0)
[2022-12-06 14:02] LABS: Transferrin 113 mg/dL (206-381)
[2022-12-06 14:18] LABS: Potassium 3.4 mmol/L (3.4-5.0)
--- NOTE | 2022-12-06 14:33 | PM.IMPN ---
Progress Note: A&P Assessment and Plan (1) Sepsis: Code(s): A41.9 - Sepsis, unspecified organism Status: Resolved Assessment and Plan: Secondary to UTI. Antibiotic therapy initiated. IV fluids discontinued (2) Acute UTI: Code(s): N39.0 - Urinary tract infection, site not specified Status: Acute Assessment and Plan: UA with 2+ leukocyte esterase, 2+ blood and 21-50 wbc's. Rocephin decelerated to Levaquin Urine culture positive for Klebsiella pneumonia Tailor antibiotics to culture results. Blood cultures positive for Klebsiella pneumonia (3) Hydronephrosis, right: Code(s): N13.30 - Unspecified hydronephrosis Status: Acute Assessment and Plan: CT scan showing mild ureteral stricture Urology has been consulted ureteral stent placed (4) JUAN (acute kidney injury): Code(s): N17.9 - Acute kidney failure, unspecified Status: Acute Assessment and Plan: IV fluids discontinued Continue to monitor BUN and creatinine Will hold enalapril (5) Lung infiltrate: Code(s): R91.8 - Other nonspecific abnormal finding of lung field Status: Acute Assessment and Plan: Chest x-ray showing atelectasis versus pneumonia. Rocephin and azithromycin discontinued and Levaquin started Subjective Date/time seen: 12/06/22 14:33 Interval history: Patient doing well today with no new complaints. Discussed his electrolyte abnormalities and anemia with him. Will plan to keep patient at the night to replenish potassium and magnesium. He is eating and drinking well and denies any pain. IV fluids continued and patient transition to p.o. antibiotics. Exam Narrative: GENERAL: Comfortable, no acute distress HENMT: moist mucous membranes EYES: EOM intact b/l NECK: no lymphadenopathy RESPIRATORY: clear to auscultation CARDIO: RRR GI: soft, nontender, bowel sounds present SKIN: no rashes EXTREMITIES: no edema, redness or tenderness Objective Data Vital Signs Vital Signs: Vital Signs - 24 hr 12/05/22 17:25 12/05/22 20:00 12/05/22 21:40 Temperature 98.1 F Pulse Rate 42 L 78 74 Respiratory Rate 16 Blood Pressure 112/51 L 138/70 Pulse Oximetry 97 Oxygen Delivery 12/06/22 00:04 12/06/22 04:39 12/06/22 04:00 Temperature 98.2 F Pulse Rate 66 69 73 Respiratory Rate 16 Blood Pressure 142/75 H Pulse Oximetry 99 Oxygen Delivery 12/06/22 08:45 12/06/22 08:00 12/06/22 08:42 Temperature Pulse Rate 73 65 Respiratory Rate Blood Pressure Pulse Oximetry Oxygen Delivery Room Air 12/06/22 12:00 12/06/22 14:00 Temperature 98.1 F Pulse Rate 74 66 Respiratory Rate 16 Blood Pressure 117/63 Pulse Oximetry 98 Oxygen Delivery Intake/Output Intake/Output: Intake & Output 12/03/22 12/04/22 12/05/22 12/06/22 23:59 23:59 23:59 23:59 Intake Total 2050 3440 3510 1590 Output Total 200 550 Balance 2049 3240 2960 1590 Meds/Results Medications: Active Medications Generic Name Dose Route Start Last Admin Trade Name Freq PRN Reason Stop Dose Admin Acetaminophen 650 mg 12/04/22 02:00 12/05/22 01:14 Acetaminophen 325 Mg Tablet PO 650 mg Q4H PRN Administration Mild Pain (1-3) or Fever Hydrocodone Bitart/Acetaminophen 1 tab 12/05/22 18:32 12/05/22 20:19 Hydrocodone/Acetaminophen (*Crx) 5-325 Mg Tablet PO 1 tab Q4H PRN Administration Pain Rated 4-6 Amlodipine Besylate 2.5 mg 12/05/22 09:00 12/06/22 08:45 Amlodipine Besylate 2.5 Mg Tablet PO 2.5 mg DAILY ELLY Administration Aspirin 81 mg 12/06/22 09:00 12/06/22 08:45 Aspirin 81 Mg Enteric Tablet PO 81 mg QAM ELLY Administration Carvedilol 6.25 mg 12/05/22 09:00 12/06/22 08:45 Carvedilol 6.25 Mg Tablet PO 6.25 mg BID ELLY Administration Cyanocobalamin 1,000 mcg 12/06/22 09:00 12/06/22 08:46 Cyanocobalamin 1,0
[2022-12-06 14:41] LABS: IFOB Positive Control Positive; Immunochemical Fecal Occult Bl Positive (N)
[2022-12-06 14:54] LABS: Iron 21 ug/dL (49-181)
[2022-12-06 15:01] LABS: Folic Acid 7.8 ng/mL (2.76->20)
[2022-12-06 15:03] LABS: Percent Iron Saturation 11 % (20-50)
[2022-12-06] MEDS: MAGNESIUM SULFATE 3GM/D5W100ML 3 GM/100 ML BAG IVPB (16:01)
[2022-12-06 18:39] LABS: Hematocrit 26.2 % (42.0-52.0); Hemoglobin 8.2 g/dL (14.0-18.0)
[2022-12-06] MEDS: TAMSULOSIN HCL 0.4 MG CAPSULE PO (20:24)
[2022-12-06] MEDS: traZODone HCL 50 MG TABLET PO (20:24)
[2022-12-07] VITALS (7 sets, daily range): BP systolic 121–134; BP diastolic 70–75; PULSE 61–67; RESP 14; TEMP 36.3; O2SAT 97–99
[2022-12-07 05:27] LABS: Hematocrit 24.3 % (42.0-52.0); Hemoglobin 7.8 g/dL (14.0-18.0); Mean Corpuscular HGB Conc 32.1 g/dl (32-36); Mean Corpuscular Hemoglobin 30.6 pg (26-34); Mean Corpuscular Volume 95.3 fl (80-100); Mean Platelet Volume 9.3 fl (7.4-10.4); Platelet Count Result 154 k/mm3 (150-375); Red Blood Count 2.55 M/mm3 (4.6-6.20); Red Cell Distribution Width 14.6 % (11.5-14.5); White Blood Count 3.7 K/mm3 (4.5-10.0)
[2022-12-07 05:38] LABS: Alanine Aminotransferase 52 U/L (6-50); Albumin Level 2.9 g/dL (3.5-5.1); Alkaline Phosphatase 78 U/L (38-126); Anion Gap 8 mmol/L (8-16); Aspartate Amino Transferase 62 U/L (17-59); Bilirubin,Total 0.3 mg/dL (0.2-1.3); Blood Urea Nitrogen 12 mg/dL (9-20); Calcium 7.8 mg/dL (8.4-10.2); Carbon Dioxide 20 mmol/L (22-30); Chloride 111 mmol/L (98-107); Estimated CRCL calculation 55 ml/min; Estimated Glomerular Filt Rate > 60; Glucose 93 mg/dL (65-110); Magnesium 1.8 mg/dL (1.6-2.3); Potassium 3.8 mmol/L (3.4-5.0); Sodium 139 mmol/L (137-145)
[2022-12-07] MEDS: carvediloL 6.25 MG TABLET PO (08:35)
[2022-12-07] MEDS: amLODIPine BESYLATE 2.5 MG TABLET PO (08:35)
[2022-12-07] MEDS: levoFLOXacin 750 MG TABLET PO (08:35)
[2022-12-07] MEDS: CYANOCOBALAMIN 1,000 MCG TABLET 1000 MCG PO (08:35)
[2022-12-07] MEDS: ASPIRIN 81 MG ENTERIC TABLET PO (08:36)
[2022-12-07] MEDS: PANTOPRAZOLE 40 MG TABLET PO (08:36)
[2022-12-07] MEDS: valACYclovir HCL 500 MG TABLET 1000 MG PO (08:36)
[2022-12-07] MEDS: CHOLECALCIFEROL 1,000 UNITS TABLET 5000 UNITS PO (08:37)
[2022-12-07] MEDS: MAGNESIUM SULF 2 GM/WATER 50ML 2 GM/50 ML BAG IVPB (08:38)
[2022-12-07] MEDS: FLUOROMETHOLONE 0.1% OP SUSP 5 ML BTL 1 DROP RIGHT EYE (08:39)
[2022-12-07] MEDS: IRON SUCROSE COMPLEX 500 MG in SODIUM CHLORIDE 0.9% IV 250 ML 78.57 MG IVPB (09:42)
--- NOTE | 2022-12-07 11:55 | PM.DS ---
DS: Admitting Diagnosis Discharge Date 12/07/22 Admitting Diagnosis UTI bacteremia DS: Discharge Diagnosis Discharge Diagnosis (1) Sepsis: Code(s): A41.9 - Sepsis, unspecified organism Status: Resolved (2) Acute UTI: Code(s): N39.0 - Urinary tract infection, site not specified Status: Acute (3) Hydronephrosis, right: Code(s): N13.30 - Unspecified hydronephrosis Status: Acute (4) JUAN (acute kidney injury): Code(s): N17.9 - Acute kidney failure, unspecified Status: Acute (5) Lung infiltrate: Code(s): R91.8 - Other nonspecific abnormal finding of lung field Status: Acute DS: Summary Hospital Course Hospital Course: This is a 76-year-old male with a past medical history of dyslipidemia, hypertension, DAVE, chronic anemia and prostate cancer the presented to the ED on 12/03/2022 due to flank pain, nausea, vomiting and fever. Patient had been treated with p.o. antibiotics as an outpatient with 0 improvement. Patient's white blood cell count [place] 69991, BUN and creatinine of 33/1.5 and urine with 21-50 white blood cells. Chest x-ray with atelectasis versus pneumonia. Patient started on ceftriaxone azithromycin. CT min pelvis revealing moderate right hydronephrosis and hydroureter, diffuse bladder wall thickening secondary to cystitis. Urine cultures positive for Klebsiella pneumoniae. Blood cultures positive for Klebsiella pneumoniae. Urology consulted due to right hydronephrosis secondary to mid ureteral stricture. Patient had stent placed on 12/04/2022. Patient did have hypokalemia and his potassium was replenished as necessary. His IV fluids were discontinued due to hemoglobin dropping likely due to dilution. Patient adamant that he has chronic anemia and has had this for 30+ years. His hemoglobin hematocrit was closely monitored and it remained stable. Is advised that he follow-up with GI as an outpatient for colonoscopy. Ironically patient stated that he is due for colonoscopy and is set to schedule 1 in the next week or so. Advised that he make this a point and go through with colonoscopy. He will continue antibiotic therapy as an outpatient. His labs and vital signs are stable and he is medically clear for discharge at this time. Time Spent with Patient Time attestation: Total time spent providing and/or coordinating discharge services: Exam Narrative: GENERAL: Comfortable, no acute distress HENMT: moist mucous membranes EYES: EOM intact b/l NECK: no lymphadenopathy RESPIRATORY: clear to auscultation CARDIO: RRR GI: soft, nontender, bowel sounds present SKIN: no rashes EXTREMITIES: no edema, redness or tenderness DS: Data Data Completed and Pending Labs on day of discharge: Labs from last 24 hours 12/07/22 12/06/22 12/06/22 04:36 18:33 14:26 WBC 3.7 L RBC 2.55 L Hgb 7.8 L 8.2 L Hct 24.3 L 26.2 L MCV 95.3 D MCH 30.6 MCHC 32.1 RDW 14.6 H Plt Count 154 MPV 9.3 Sodium 139 Potassium 3.8 Chloride 111 H Carbon Dioxide 20 L Anion Gap 8 BUN 12 Creatinine 1.00 Estim Creat Clear Calc 55 Estimated GFR > 60 Glucose 93 Calcium 7.8 L Magnesium 1.8 Iron TIBC % Saturation Transferrin Ferritin Total Bilirubin 0.3 AST 62 H ALT 52 H Alkaline Phosphatase 78 Total Protein 7.0 Albumin 2.9 L Vitamin B12 Folate TSH (Reflex) Stl Occult Blood (IFOB) Positive H 12/06/22 12:45 WBC RBC Hgb 7.6 L Hct 24.4 L MCV MCH MCHC RDW Plt Count MPV Sodium Potassium 3.4 Chloride Carbon Dioxide Anion Gap BUN Creatinine Estim Creat Clear Calc Estimated GFR Glucose Calcium Magnesium Iron 21 L TIBC 185 L % Saturation 11 L Transferrin 113 L Ferritin 212.00 Total Bilirubin AST ALT Alkaline Phosphatase Total Protein Albumin Vitamin B12 331.0 Folate 7.8 TSH (Reflex) 3.170 Stl Occul
== END 2022-12-07 14:55 | disposition home or self-care (01) | DRG 853 ==
LOC: ANHED 19:38 → ANH2MED 22:12
PROVIDERS: Emergency Medicine; Hospitalist; Internal Medicine; Urology; Admitting Provider Internal Medicine; Emergency Provider General Practice; PCP Internal Medicine; Visit Provider Internal Medicine Critical Care Medicine
PROC: 0T768DZ Dilation of Right Ureter with Intraluminal Device, Via Natural or Artificial Opening Endoscopic (ICD-10-PCS; CPT 52352; principal; 2022-12-04 17:00)
DX: A41.89 Other specified sepsis (principal); J18.9 Pneumonia, unspecified organism; N13.6 Pyonephrosis; N17.9 Acute kidney failure, unspecified; J98.11 Atelectasis; B96.1 Klebsiella pneumoniae [K. pneumoniae] as the cause of diseases classified elsewhere; D64.9 Anemia, unspecified; R91.8 Other nonspecific abnormal finding of lung field; E78.5 Hyperlipidemia, unspecified; G47.33 Obstructive sleep apnea (adult) (pediatric); I10 Essential (primary) hypertension; E87.6 Hypokalemia; Z20.822 Contact with and (suspected) exposure to COVID-19; Z85.46 Personal history of malignant neoplasm of prostate
CPT/HCPCS: 36415; 71046; 74018; 74177; 74420; 80048; 80053; 81001; 82274; 82607; 82728; 82746; 83540; 83550; 83605; 83690; 83735; 84132; 84443; 84466; 85014; 85018; 85025; 85027; 86850; 86880; 86900; 86901; 86902; 87040; 87077; 87086; 87186; 87636; 96361; 96365; 96375; 99285; A9270; C1758; C1769; C2617; J0330; J0456; J0696; J1756; J2405; J2704; J3475; J3480; J7030; J7050; J7120; Q9966; Q9967

== ENCOUNTER 2023-12-03 10:33 | Emergency (ER) | payer BC, SELFPAY ==
--- NOTE | ~2023-12-03 | XR_ITS ---
HISTORY: trauma yesterday /pain unspecified area COMPARISON: None TECHNIQUE: 4 views of the left knee were performed FINDINGS: Diffuse bony demineralization is identified. Significant degenerative disease with medial tibiofemoral joint space narrowing. Suprapatellar joint effusion is identified. The infrapatellar joint space is clear. No acute fracture is appreciated. Vascular calcifications within the overlying soft tissues. 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 Reviewed, dictated and finalized at location A. IMPRESSION: Severe degenerative disease along with diffuse bony demineralizati on and a suprapatellar joint, without acute fracture.
[2023-12-03 10:42] VITALS: BP 129/68; PULSE 78; RESP 18; TEMP 36.6; O2SAT 100
--- NOTE | 2023-12-03 10:43 | ED.EXTPRO ---
HPI - Extremity Problem General Chief complaint: Extremity Problem,Nontraumatic Stated complaint: bilateral Knee Pain Time Seen by Provider: 12/03/23 10:43 Source: patient, RN notes reviewed and old records reviewed Mode of arrival: ambulatory Limitations: no limitations History of Present Illness HPI Narrative: patient presents with complaints of left knee pain after same level trip and fall accident yesterday. He landed on the knees and hands after tripping over a painting drop cloth that was on some concrete. Denies any head trauma. He does have an abrasion to the right knee, but states this does not really hurt. There is no active bleeding. He is concerned about the bruising and pain to the left knee. He has a small abrasion to the left palm, states this is not painful. Denies other injury and trauma, voices no other concerns or complaints at this time. Related Data Home Medications Medication Instructions Recorded Confirmed atorvastatin 40 mg tablet 40 mg PO HS 02/08/19 12/04/22 carvedilol 6.25 mg tablet 12.5 mg PO BID 12/03/22 12/05/22 melatonin 5 mg tablet 5 mg PO HS PRN Insomnia 12/03/22 12/03/22 amlodipine 2.5 mg tablet 2.5 mg PO DAILY 12/04/22 12/04/22 clopidogrel 75 mg tablet 75 mg PO DAILY 12/04/22 12/04/22 nitroglycerin 0.4 mg sublingual 0.4 mg sublingual DIRECTED PRN 12/04/22 12/04/22 tablet Chest Pain Miralax 17 g PO DAILY 12/05/22 12/05/22 aspirin 81 mg PO DAILY 12/05/22 12/05/22 cholecalciferol (vitamin D3) 5,000 units PO DAILY 12/05/22 12/05/22 cyanocobalamin (vitamin B-12) 1,000 mcg PO DAILY 12/05/22 12/05/22 1,000 mcg tablet (Vitamin B-12) fluorometholone 1 drp RIGHT EYE DAILY 12/05/22 12/05/22 pantoprazole 40 mg tablet,delayed 40 mg PO DAILY 12/05/22 12/05/22 release ramelteon 8 mg tablet 8 mg PO HS 12/05/22 12/05/22 trazodone 50 mg tablet 50 mg PO HS 12/05/22 12/05/22 valacyclovir 500 mg tablet 1,000 mg PO DAILY 12/05/22 12/05/22 Allergies Allergy/AdvReac Type Severity Reaction Status Date / Time Bumble Bee Allergy Unknown Swelling Uncoded 12/03/23 10:44 Review of Systems Review of Systems: All systems reviewed & are unremarkable except as noted in HPI and below Constitutional: Constitutional: Reports no additional constitutional complaints ENT: Reports system reviewed and no additional complaints, except as documented Cardiovascular: Cardiovascular: Reports no additional cardiovascular complaints Respiratory: Respiratory: Reports no additional respiratory complaints Gastrointestinal: Gastrointestinal: Reports no additional gastrointestinal complaints Musculoskeletal: Musculoskeletal: Reports as per HPI Integumentary/Breasts: Skin/Breast: Reports as per HPI [facility] Past Medical History Medical History (Updated 12/03/23 @ 11:22 by Kelly Vazquez APRN) Hyperlipidemia Hypertension DAVE (obstructive sleep apnea) Prostate CA Surgical History Surgical History H/O prostatectomy History of open heart surgery s/p coronary stent placement with injury to aorta 08/14 at [place] Social History Social History Smoking status: Never smoker Alcohol intake: never Substance use: never Substance use type: does not use Lack of Transportation: No Lack of Food: Never True Current Housing: I Have Housing Concerned About Future Housing: No Difficulty Paying Gas/Electric Bills: No Difficulty Paying for Meds: No Currently Unemployed: No Education: Decline to Answer Difficulty w/ Childcare or Family Care: No Gender identity (if verbalized by the patient): Male Spiritual care concerns: No Comments At the time of my signature, I reviewed and agree with the nursing past medical, surgical, social, and family history. There is no relevant family history pertinent to the patient complaint. Exam Const: General: cooperative, no acute distress, alert a
[2023-12-03 10:45] VITALS: BP 129/68; PULSE 78; RESP 18; TEMP 36.6; O2SAT 100
== END 2023-12-03 11:30 | disposition home or self-care (01) ==
PROVIDERS: Emergency Provider Nurse Practitioner Family; PCP Internal Medicine
DX: M25.562 Pain in left knee (principal); E78.5 Hyperlipidemia, unspecified; I10 Essential (primary) hypertension; Z85.46 Personal history of malignant neoplasm of prostate; Z90.79 Acquired absence of other genital organ(s); Z95.5 Presence of coronary angioplasty implant and graft; Z79.82 Long term (current) use of aspirin
CPT/HCPCS: 73564; 99213; G0463

== ENCOUNTER 2024-06-05 00:35 | Day surgery (SDC) | payer MEDICARE, BC, SELFPAY ==
[2024-05-09 14:37] VITALS: BMI 28.8
--- NOTE | 2024-05-09 14:47 | SUR.PREOP ---
Patient verbalizes understanding that the last dose of Plavix is to be taken on 05/09/2024 and the Endoscopist will instruct them when to restart after the procedure.
--- NOTE | 2024-05-25 10:42 | PC.NURSE ---
Spoke with patient regarding medication Plavix. Patient verbalizes understanding that the last dose is to be taken on 05/25/2024 and the Endoscopist will instruct them when to restart after the procedure.
[2024-05-25 10:48] VITALS: BMI 28.8
--- NOTE | 2024-06-01 09:31 | SUR.PREOP ---
Spoke with patient and verified new date and time of his procedure also confirmed with patient that he did not restart his plavix when he rescheduled his procedure. Patient also gave me a verbal clearance that he got from his power regulator office yesterday that the power regulator was ok with him being off the plavix a Will resume plavix when instructed by endoscopist.
--- OUTSIDE RECORDS SUMMARY | 2024-06-05 00:38 | XMS_ITS | Encounter Summary ---
Author Organization [facility] Address [address] [place] [id number] Care Team Providers Care Car Framer Name Role Phone Walter Marrero MD Primary Care Provider [phone] Encounter Details Date Type Department Care Team (Late st Contact Info) Description 08/17/2022 [employer] Message Enc [facility] [place] BUSINESS OFFICE [facility] Provider ACTION NEEDED! Social History Tobacco Use Types Packs/Day Years Used Date Smoking Tobacco: Never Smokeless Tobacco: Never Alcohol Use Standard Drinks/Week Comments No 0 (1 standard drink = 0.6 oz pur e alcohol) AUDIT-C Answer Date Recorded Frequency of Alcohol Consumption Never 12/09/2018 Average Number of Drinks Not on file 019 Frequency of Binge Drinking Not on file 11/22 Sex and Gender Information Value Date Recorded Sex Assigned at Male 03/29/2023 9:33 AM HISTORY TEACHER Legal Sex Male 9:24 PM CDT Gender Identity Male 03/29/2023 9:33 AM HISTORY TEACHER Sexual Orientation Straight 03/29/2023 9: 33 AM HISTORY TEACHER documented as of this encounter Plan of Treatment Not on file documented as of this encounter Visit Diagnoses Not on filedocumented in this encounter Care Teams Car Framer Relationship Specialty Start Date End Date Walter Marrero MD PCP - General INTERNAL MEDICINE 08/02/18 documented as of this encounter
--- OUTSIDE RECORDS SUMMARY | 2024-06-05 00:38 | XMS_ITS | Data Portability ---
Author Organization [facility] [employer] Address [address] [facility] [facility] [address] [place] [address] Care Team Providers Care Raspberry Checker Name Role Phone DEBORAH THOMPSON Interlocking And Signal Mechanic FERMIN MA Blast Furnace Blower EARNEST MCKEON Body Shop Worker JOJO CHILD Log Chipper WALTER LIZ Primary Care Provider Assessment Encounter Date Assessment Date Assessment LastModified by Organization Details LastModified Time 02/25/2023 02/25/2023 Patient presented for follow up. Studies ordered as below. Discussed plan with patient/careg silviano, who expressed understanding . Follow up as noted below. Not available 02/25/2023 12:40:03 03/22/2024 03/22/2024 Patient presented for follow up. Studies ordered as below. Discussed plan with patient/careg silviano, who expressed understanding . Follow up as noted below. Not available 03/22/2024 18:01:29 Plan of Treatment Reminders Order Date Submit Date Provider Last Modified By Organization Details Last Modified Time Details Appointments ESTABLISH ED PATIENT 15 2024 04:45P Milagros Liz MD Not available Not available Not available Lab vitamin B12, serum 2024 025 [employer] [facility], [address], [place], [address], 03/24/2024 15:03:22 CMP, serum or plasma 2024 025 [facility], [address], [place], [address], 03/24/2024 15:03:19 CBC 2024 025 CLAUDE [facility], [address], [place], [address], 03/22/2024 18:48:13 TSH + free T4, serum 2024 025 [facility], [address], [place], [address], 03/22/2024 18:48:14 T3, free, serum or plasma 2024 025 [facility], [address], [place], [address], 03/24/2024 15:03:20 lipid panel w/ direct LDL, serum 2024 025 [facility], [address], [place], [address], 06/02/2024 11:29:58 TSH, serum or plasma 2024 025 [facility], [address], [place], [address], 06/02/2024 11:29:58 vitamin D, 25-hydrox y, total, serum 2024 025 [facility], [address], [place], [address], 03/22/2024 18:48:13 CMP, serum or plasma 2023 024 [facility], [address], [place], [address], 12/16/2023 14:28:31 CBC 2023 024 [facility], [address], [place], [address], 12/15/2023 17:59:30 HbA1c (hemoglob in A1c), blood 2023 024 [facility], [address], [place], [address], 12/16/2023 14:28:29 TSH + free T4, serum 2023 024 [facility], [address], [place], [address], 09/08/2023 17:40:01 T3, free, serum or plasma 2023 024 [facility], [address] [place], [address], 09/09/2023 16:42:37 iron + TIBC + ferritin, serum 2023 024 [facility], [address] [place], [address], 09/15/2023 04:12:59 vitamin B12 + folate, serum or blood 2023 024 [facility], [address] [facility] [address], [address], 09/15/2023 04:12:59 CMP, serum or plasma 2023 024 [facility], [address] [facility] [address], [address], 09/09/2023 16:42:36 CBC w/ auto diff 2023 024 [facility], [address] [place], [address], 09/09/2023 16:42:35 PSA, serum or plasma 2023 024 [facility], [address] [facility] [address], [place], [address], 06/03/2023 04:12:34 CMP, serum or plasma 2023 024 [facility], [address] [facility] [address], [place], [address], 05/31/2023 04:11:32 CBC 2023 024 [facility], [address] [facility] [address], [place], [address], 05/27/2023 12:38:00 TSH + free T4, serum [address] [facility], [address], [place], [address], 05/27/2023 12:38:00 lipid panel w/ direct LDL, serum 2023 024 [facility], [address] [facility] [address], [place], [address], 06/03/2023 04:12:34 HbA1c (hemoglob in A1c), blood 2023 024 [facility], [address], [address], 03/28/2023 12:13:04 vitamin B12, serum 2023 024 [facility], [address], [address], 03/28/2023 12:13:00 CMP, serum or plasma 2023 024 [facility], [address], [address], 03/28/2023 12:12:58 CBC w/ auto diff 2023 024 [facility], [address], [address], 03/28/2023 12:12:59 TSH + free T4, serum 2023 024 [facility], [address], [address], 03/28/2023 12:12:56 T3, free, serum or plasma 2023 024 [facility], [address], [address], 03/28/2023 12:13:01 iron panel, serum or plasma 2023 024 [facility], [address], [address], 03/04/2023 05:59:13 lipid panel w/ direct LDL, serum 2023 024 [facility], [address], [address], 03/04/2023 05:59:12 TSH, serum or plasma 2023 024 [facility], [address], [address], 03/28/2023 12:13:02 vitamin D, 25-hydrox y, total, serum 2023 024 [facility], [address], [address], 03/28/2023 12:13:03 Referral physical therapist referral 2024 025 [facility], [address] [place], [address], 03/28/2024 16:18:[address] referral [address], [address] [place], [address], 06/02/2024 11:30:26 gastroent erologist referral 2024 025 [place] [address] Earnest Mckeon MD, [address] [facility] [address], [place], [address], 06/02/2024 11:30:[address] referral 2023 024 [facility], [address] [place], [address], 01/12/2024 04:04:07 gastroent erologist referral 2023 024 CLAUDE Mckeon MD, [address] [facility] [address], [address], [place], [address], 10/06/2023 04:03:50 gastroent erologist referral 2023 024 CLAUDE Mckeon MD, [address] [facility] [address], [address], [place], [address], 06/24/2023 04:59:18 otolaryng ologist referral 2023 024 CLAUDE Murrell MD, [address] [place] [address], [address], 04/27/2023 18:38:[address] referral 2023 024 [facility], [address] [place], [address], 08/11/2023 06:01:39 Procedures None recorded. Surgeries None recorded. Imaging XR, kidney + ureter + bladder [address] (Imaging & Mammogram), [address] [place], [address], 06/02/2024 11:25:30 CT, chest, w/o contrast [address] (Imaging & Mammogram), [address] [place], [address], 06/02/2024 11:25:31 CT, chest, w/o contrast 2023 024 [facility] (Imaging & Mammogram), [address] [place], [address], 12/29/2023 04:03:46 CT, chest, w/o contrast 2023 024 [facility] (Imaging & Mammogram), [address] [place], [address], 06/10/2023 05:04:28 XR, lumbar spine 2023 024 [facility] ([facility]aging & Mammogram), [address] [place], [address], 04/06/2023 11:03:27 XR, thoracic spine, 2 view 2023 024 [facility] (Imaging & Mammogram), [address] [place], [address], 04/06/2023 10:57:46 electroca rdiogram 2023 024 [facility], [address], [place], [address], 02/25/2023 14:27:07 CT, chest, w/o contrast 2023 024 [facility] (Imaging & Mammogram), [address] [place], [address], 03/11/2023 04:12:26 XR, shoulder, 2 or more view 2023 [facility] ([facility]ammogram), [address] [place], [address], 04/06/2023 10:53:20 Medication Orders fluticaso ne propionat e 50 mcg/actua tion nasal spray,osmar pension 2024 [id number], [address] [place] [address], [address], 03/22/2024 18:47:25 Zithromax Z-Hitesh 250 mg tablet 2024 [facility], [address], [address], 03/22/2024 18:47:24 Mucinex DM 30 mg-600 mg tablet,ex tended release 12 hr 2024 [facility], [address] [place] [address], [address], 03/22/2024 18:47:24 mupirocin 2 % topical ointment 2023 [facility], [address] [place] [address], [address], 12/15/2023 17:58:44 doxycycli ne hyclate 100 mg capsule 2023 [facility], [address] [place] [address], [address], 12/15/2023 17:58:45 olmesarta n 20 mg tablet 2023 [id number], [address] [facility], [place], [address], 02/25/2023 13:30:58 Patient TargetsNo targets recorded. Patient Instructions Encounter Date Encounter Id Patient Instructions Last Modified By Organization Details Last Modified Time 02/25/2023 [id number] Peripheral Arterial Disease (PAD): Care Instructions mshenouda Not available 02/25/2023 13:30:47 prostate cancer: care instructions mshenouda Not available 02/25/2023 13:30:50 knee arthritis: care instructions mshenouda Not available 02/25/2023 13:30:49 back care and preventing injuries: care instructions mshenouda Not available 02/25/2023 13:30:50 getting back to normal after low back pain: care instructions mshenouda Not available 02/25/2023 13:30:48 learning about relief for back pain mshenouda Not available 02/25/2023 13:30:50 sleep apnea: car e instructions mshenouda Not available 02/25/2023 13:30:48 hearing loss: care instructions mshenouda Not available 02/25/2023 13:30:50 inguinal hernia: care instructions mshenouda Not available 02/25/2023 13:30:48 high blood pressure: care instructions mshenouda Not available 02/25/2023 13:30:48 learning about high blood pressure mshenouda Not available 02/25/2023 13:30:47 kidney stone: care instructions mshenouda Not available 02/25/2023 13:30:47 learning about diet for kidney stone prevention mshenouda Not available 02/25/2023 13:30:47 anemia: care instructions mshenouda Not available 02/25/2023 13:30:49 high cholesterol : care instructions mshenouda Not available 02/25/2023 13:30:47 learning about healthy weight mshenouda Not available 02/25/2023 13:30:48 living will mshenouda Not available 05/2023 13:19:49 05/27/2023 [id number] prostate cancer: care instructions mshenouda Not available 05/27/2023 12:36:47 Peripheral Arterial Disease (PAD): Care Instructions mshenouda Not available 05/27/2023 12:36:48 kidney stone: care instructions mshenouda Not available 05/27/2023 12:36:47 learning about diet for kidney stone prevention mshenouda Not available 05/27/2023 12:36:47 high cholesterol : care instructions mshenouda Not available 05/27/2023 12:36:48 sleep apnea: car e instructions mshenouda Not available 05/27/2023 12:36:47 learning about healthy weight mshenouda Not available 05/27/2023 12:36:47 09/08/2023 [id number] anemia: care instructions mshenouda Not available 09/08/2023 17:39:05 high cholesterol : care instructions mshenouda Not available 09/08/2023 17:39:06 carotid stenosis : care instructions mshenouda Not available 09/08/2023 17:39:05 learning about healthy weight mshenouda Not available 09/08/2023 17:39:05 high blood pressure: care instructions mshenouda Not available 09/08/2023 17:39:05 learning about high blood pressure mshenouda Not available 09/08/2023 17:39:05 12/15/2023 [id number] prostate cancer: care instructions mshenouda Not available 12/15/2023 17:58:41 Peripheral Arterial Disease (PAD): Care Instructions mshenouda Not available 12/15/2023 17:58:41 kidney stone: care instructions mshenouda Not available 12/15/2023 17:58:42 learning about diet for kidney stone prevention mshenouda Not available 12/15/2023 17:58:41 high cholesterol : care instructions mshenouda Not available 12/15/2023 17:58:41 learning about healthy weight mshenouda Not available 12/15/2023 17:58:42 03/22/2024 [id number] Peripheral Arterial Disease (PAD): Care Instructions mshenouda Not available 03/22/2024 18:47:19 prostate cancer: care instructions mshenouda Not available 03/22/2024 18:47:18 neck pain: care instructions mshenouda Not available 03/22/2024 18:47:20 knee arthritis: care instructions mshenouda Not available 03/22/2024 18:47:19 sleep apnea: car e instructions mshenouda Not available 03/22/2024 18:47:19 inguinal hernia: care instructions mshenouda Not available 03/22/2024 18:47:19 carotid stenosis : care instructions mshenouda Not available 03/22/2024 18:47:20 chronic sinusitis: care instructions mshenouda Not available 03/22/2024 18:47:19 kidney stone: care instructions mshenouda Not available 03/22/2024 18:47:19 learning about diet for kidney stone prevention mshenouda Not available 03/22/2024 18:47:20 high cholesterol : care instructions mshenouda Not available 03/22/2024 18:47:19 learning about healthy weight mshenouda Not available 03/22/2024 18:47:19 living will mshenouda Not available 02/23 18:45:01 Reason for Referral Quality Assurance Director Referral for Donny ign essential hypertension Referring Physician: [facility], Encounter Date: 02/25/2023 Flavor Maker Referral fo r Bilateral hearing loss Referring Physician: [facility], Encounter Date: 02/25/2023 Body Shop Worker Referral for Screening for malignant neoplasm of colon Referring Physician: [facility], Encounter Date: 05/27/2023 Body Shop Worker Referral for Screening for malignant neoplasm of colon Referring Physician: [facility], Encounter Date: 09/08/2023 Quality Assurance Director Referral for Donny ign hypertension Referring Physician: [facility], Encounter Date: 12/15/2023 Quality Assurance Director Referral for Donny ign hypertension Referring Physician: [facility], Encounter Date: 03/22/2024 Body Shop Worker Referral for Screening for malignant neoplasm of colon Referring Physician: [facility], Encounter Date: 03/22/2024 Physical Therapist Referral for Neck pain Referring Physician: [facility], Encounter Date: 03/22/2024 Results Created Date Observation Date Name Description Value Unit Range Abnormal Flag Note LastModifiedBy Organization Detail LastModifiedTime 03/27/19 24 03/28/2023 IRON, TOTAL iron, total 74 mcg/d L 50-180 normal Not Available [email or web address] [facility] [address], [place], [address], 03/28/2023 12:12:57 03/27/19 24 03/28/2023 TSH W/REF YINKA TO FT4 TSH w/reflex to FT4 4.95 mIU/L 0.40-4 .50 high Not Available [employer] [facility] [address], [place], [address], 03/28/2023 12:13:02 05/28/19 24 05/28/2023 CBC WITH AUTO- DIFFE RENTI AL WBC 4.3 10*3/ uL 3.4-10 .8 Not Available [facility] [address] [facility] [address] [address] [address], [place], [address], 05/29/2023 14:29:34 05/28/19 24 05/28/2023 CBC WITH AUTO- DIFFE RENTI AL RBC 3.60 10*6/ uL 4.20-5 .80 low Not Available [facility] [address] [facility] [address], [place], [address], 05/29/2023 14:29:34 05/28/19 24 05/28/2023 CBC WITH AUTO- DIFFE RENTI AL HGB 11.8 g/dL 12.6-1 7.7 low Not Available [facility] [address] [facility] [address], [place], [address], 05/29/2023 14:29:34 05/28/19 24 05/28/2023 CBC WITH AUTO- DIFFE RENTI AL HCT 35.0 % 37.5-5 1.0 low Not Available [facility] [address], [place], [address], 05/29/2023 14:29:34 05/28/19 24 05/28/2023 CBC WITH AUTO- DIFFE RENTI AL MCV 97 fL 79-97 Not Available [facility] [address] [facility] [address], [place], [address], 05/29/2023 14:29:34 05/28/19 24 05/28/2023 CBC WITH AUTO- DIFFE RENTI AL MCH 32.8 pg 26.6-3 3.0 Not Available [facility] [address], [place], [address], 05/29/2023 14:29:34 05/28/19 24 05/28/2023 CBC WITH AUTO- DIFFE RENTI AL MCHC 33.7 g/dL 31.5-3 5.7 Not Available [facility] [address], [place], [address], 05/29/2023 14:29:34 05/28/19 24 05/28/2023 CBC WITH AUTO- DIFFE RENTI AL RDW 14.7 % 11.5-1 4.5 high Not Available [facility] [address] [facility] [address], [place], [address], 05/29/2023 14:29:34 05/28/19 24 05/28/2023 CBC WITH AUTO- DIFFE RENTI AL platelets 178 10*3/ uL 150-40 0 Not Available [facility] [address], [place], [address], 05/29/2023 14:29:34 05/28/19 24 05/28/2023 CBC WITH AUTO- DIFFE RENTI AL MPV 10 fL 9-13 Not Available [facility] [address] [facility] [address], [place], [address], 05/29/2023 14:29:34 05/28/19 24 05/28/2023 CBC WITH AUTO- DIFFE RENTI AL neutrophils 56.7 % 40.0-7 4.0 Not Available [facility] [address] [facility] [address], [place], [address], 05/29/2023 14:29:34 05/28/19 24 05/28/2023 CBC WITH AUTO- DIFFE RENTI AL absolute neutrophils 2.43 10*3/ uL 1.40-7 .00 Not Available [facility] [address] [facility] [address], [place], [address], 05/29/2023 14:29:34 05/28/19 24 05/28/2023 CBC WITH AUTO- DIFFE RENTI AL lymphocytes 26.1 % 14.0-4 6.0 Not Available [facility] [address] [facility] [address], [place], [address], 05/29/2023 14:29:34 05/28/19 24 05/28/2023 CBC WITH AUTO- DIFFE RENTI AL absolute lymphocytes 1.12 10*3/ uL 0.70-3 .10 Not Available [facility] [address] [facility] [address], [place], [address], 05/29/2023 14:29:34 05/28/19 24 05/28/2023 CBC WITH AUTO- DIFFE RENTI AL monocytes 10.0 % 4.0-12 .0 Not Available [facility] [address] [facility] [address], [place], [address], 05/29/2023 14:29:34 05/28/19 24 05/28/2023 CBC WITH AUTO- DIFFE RENTI AL absolute monocytes 0.43 10*3/ uL 0.10-0 .90 Not Available [facility] [address] [facility] [address], [place], [address], 05/29/2023 14:29:34 05/28/19 24 05/28/2023 CBC WITH AUTO- DIFFE RENTI AL eosinophils 6.3 % 0.0-5. 0 high Not Available [facility] [address] [facility] [address], [place], [address], 05/29/2023 14:29:34 05/28/19 24 05/28/2023 CBC WITH AUTO- DIFFE RENTI AL absolute eosinophils 0.27 10*3/ uL 0.00-0 .40 Not Available [facility] [address] [facility] [address], [place], [address], 05/29/2023 14:29:34 05/28/19 24 05/28/2023 CBC WITH AUTO- DIFFE RENTI AL basophils 0.7 % 0.0-3. 0 Not Available [facility] [address] [facility] [address], [place], [address], 05/29/2023 14:29:34 05/28/19 24 05/28/2023 CBC WITH AUTO- DIFFE RENTI AL absolute basophils 0.03 10*3/ uL 0.00-0 .20 Not Available [facility] [address] [facility] [address], [place], [address], 05/29/2023 14:29:34 05/28/19 24 05/28/2023 CBC WITH AUTO- DIFFE RENTI AL imm. gran. 0.2 % 0.0-2. 0 Not Available [facility] [address] [facility] [address], [place], [address], 05/29/2023 14:29:34 05/28/19 24 05/28/2023 CBC WITH AUTO- DIFFE RENTI AL abs. imm. gran. 0.01 10*3/ uL 0.00-0 .10 Not Available [facility] [address] [facility] [address], [place], [address], 05/29/2023 14:29:34 05/28/19 24 05/28/2023 COMPR EHENS RADHA METAB OLIC PANEL sodium 145 mmol/ L 134-14 4 high Not Available [facility] [address] [facility] [address], [place], [address], 05/29/2023 14:29:35 05/28/19 24 05/28/2023 COMPR EHENS RADHA METAB OLIC PANEL potassium 4.3 mmol/ L 3.5-5. 2 Not Available [address], [place], [address], 05/29/2023 14:29:35 05/28/19 24 05/28/2023 COMPR EHENS RADHA METAB OLIC PANEL chloride 111 mmol/ L 97-108 high Not Available [facility] [address] [facility] [address], [place], [address], 05/29/2023 14:29:35 05/28/19 24 05/28/2023 COMPR EHENS RADHA METAB OLIC PANEL carbon dioxide (co2) 25.0 mmol/ L 18.0-2 9.0 Not Available [facility] [address] [facility] [address], [place], [address], 05/29/2023 14:29:35 05/28/19 24 05/28/2023 COMPR EHENS RADHA METAB OLIC PANEL glucose 99 mg/dL 65-99 Sowmya l Fasti ng: < 100 mg/dL Impai red Fasti n - 125 mg/dL Diagn ostic of [facility]: => 126 mg/dL Ameri can [facility], 2008 Not Available [facility] [address] [facility] [address], [place], [address], 05/29/2023 14:29:35 05/28/19 24 05/28/2023 COMPR EHENS RADHA METAB OLIC PANEL urea nitrogen (BUN) 23 mg/dL 8-23 Not Available [facility] [address] [facility] [address], [place], [address], 05/29/2023 14:29:35 05/28/19 24 05/28/2023 COMPR EHENS RADHA METAB OLIC PANEL creatinine 1.09 mg/dL 0.76-1 .27 Not Available [facility] [address] [facility] [address], [place], [address], 05/29/2023 14:29:35 05/28/19 24 05/28/2023 COMPR EHENS RADHA METAB OLIC PANEL eGFR for nonafrican AM 66 mL/mi nute/ 1.73_ m2 >59 Not Available [facility] [address] [facility] [address], [place], [address], 05/29/2023 14:29:35 05/28/19 24 05/28/2023 COMPR EHENS RADHA METAB OLIC PANEL eGFR for AM 80 mL/mi nute/ 1.73_ m2 >59 MDRD Study Equat ion: The calcu lated GFR is NOT appli cable for pedia tric (< 18 years old) and > 70 year old patie nts and patie nts that are NOT of [place] . Not Available [facility] [address] [facility] [address], [place], [address], 05/29/2023 14:29:35 05/28/19 24 05/28/2023 COMPR EHENS RADHA METAB OLIC PANEL calcium 9.2 mg/dL 8.6-10 .2 Not Available [facility] [address] [facility] [address], [place], [address], 05/29/2023 14:29:35 05/28/19 24 05/28/2023 COMPR EHENS RADHA METAB OLIC PANEL protein, total 6.7 gm/dL 6.4-8. 3 Not Available [facility] [address] [facility] [address], [place], [address], 05/29/2023 14:29:35 05/28/19 24 05/28/2023 COMPR EHENS RADHA METAB OLIC PANEL albumin 4.4 gm/dL 3.5-5. 2 Not Available [facility] [address] [facility] [address], [place], [address], 05/29/2023 14:29:35 05/28/19 24 05/28/2023 COMPR EHENS RADHA METAB OLIC PANEL bilirubin, total 0.40 mg/dL 0.00-1 .20 Not Available [facility] [address] [facility] [address], [place], [address], 05/29/2023 14:29:35 05/28/19 24 05/28/2023 COMPR EHENS RADHA METAB OLIC PANEL alkaline phosphatase (ALP) 77 U/L 39-117 Not Available [facility] [address] [facility] [address], [place], [address], 05/29/2023 14:29:35 05/28/19 24 05/28/2023 COMPR EHENS RADHA METAB OLIC PANEL aspartate aminotransfe rase (AST) 22 U/L 0-40 Not Available [facility] [address] [facility] [address], [place], [address], 05/29/2023 14:29:35 05/28/19 24 05/28/2023 COMPR EHENS RADHA METAB OLIC PANEL alanine aminotransfe rase (ALT) 16 U/L 0-41 Not Available [facility] [address] [facility] [address], [place], [address], 05/29/2023 14:29:35 05/28/19 24 05/28/2023 COMPR EHENS RADHA METAB OLIC PANEL A/G ratio (calculated) 1.9 ratio 1.0-2. 7 Not Available [facility] [address] [facility] [address], [place], [address], 05/29/2023 14:29:35 05/28/19 24 05/28/2023 COMPR EHENS RADHA METAB OLIC PANEL globulin (calculated) 2.3 gm/dL 1.5-3. 8 Not Available [address], [place], [address], 05/29/2023 14:29:35 05/28/19 24 05/28/2023 COMPR EHENS RADHA METAB OLIC PANEL BUN/creatini ne ratio (calculated) 21.1 ratio 8.0-20 .0 high Not Available [place] [id number] [facility] [address], [place], [address], 05/29/2023 14:29:35 05/28/19 24 05/28/2023 COMPR EHENS RADHA METAB OLIC PANEL serum hemolysis index NORMAL index normal Not Available [facility] [address] [facility] [address], [place], [address], 05/29/2023 14:29:35 05/28/19 24 05/28/2023 FREE T4 thyroxine (T4), free 1.05 NG/dL 0.82-1 .77 Not Available [facility] [address] [facility] [address], [place], [address], 05/29/2023 14:29:35 05/28/19 24 05/28/2023 LIPID PANEL W/ CALC. LDL cholesterol, total 162 mg/dL 100-19 9 Not Available [facility] [address] [facility] [address], [place], [address], 05/29/2023 14:29:35 05/28/19 24 05/28/2023 LIPID PANEL W/ CALC. LDL HDL cholesterol 44 mg/dL =>40 Not Available [facility] [address] [facility] [address], [place], [address], 05/29/2023 14:29:35 05/28/19 24 05/28/2023 LIPID PANEL W/ CALC. LDL LDL cholesterol (calculated) 88 mg/dL 0-99 Not Available [facility] [address] [facility] [address], [place], [address], 05/29/2023 14:29:35 05/28/19 24 05/28/2023 LIPID PANEL W/ CALC. LDL triglyceride s 149 mg/dL 50-149 Not Available [facility] [address] [facility] [address], [place], [address], 05/29/2023 14:29:35 05/28/19 24 05/28/2023 LIPID PANEL W/ CALC. LDL chol/HDL ratio (calculated) 3.68 ratio 0.00-5 .00 Not Available [facility] [address] [facility] [address], [place], [address], 05/29/2023 14:29:35 05/28/19 24 05/28/2023 LIPID PANEL W/ CALC. LDL VLDL cholesterol (calculated) 30 mg/dL 5-40 Not Available [facility] [address] [facility] [address], [place], [address], 05/29/2023 14:29:35 05/28/19 24 05/28/2023 PROST ATE-S PECIF IC ANTIG EN (PSA) , TOTAL (SCRE ENING ) prostate-spe cific antigen, total 0.0 NG/mL 0.0-4. 0 ECLIA METHO DOLOG Y. RESUL TS FROM THIS METHO D IS NOT PANCHO TIBLE WITH DIFFE RENT ASSAY METHO D AND CANNO T BE USED INTER BUSTAMANTE EABLY . Not Available [facility] [address] [facility] [address], [place], [address], 05/29/2023 14:29:36 05/28/19 24 05/28/2023 THYRO ID-ST IM. HORMO NE (TSH) , HIGH- SENSI TIVE thyroid-stim . hormone (TSH), hs 4.64 uIU/m L 0.27-4 .20 high Not Available [facility] [address] [facility] [address], [place], [address], 05/29/2023 14:29:36 09/08/19 24 09/08/2023 CBC WITH AUTO- DIFFE RENTI AL WBC 4.6 10*3/ uL 3.4-10 .8 Not Available [facility] [address] [facility] [address], [place], [address], 09/09/2023 16:42:35 09/08/19 24 09/08/2023 CBC WITH AUTO- DIFFE RENTI AL RBC 3.45 10*6/ uL 4.20-5 .80 low Not Available [facility] [address], [place], [address], 09/09/2023 16:42:35 09/08/19 24 09/08/2023 CBC WITH AUTO- DIFFE RENTI AL HGB 11.4 g/dL 12.6-1 7.7 low Not Available [facility] [address], [place], [address], 09/09/2023 16:42:35 09/08/19 24 09/08/2023 CBC WITH AUTO- DIFFE RENTI AL HCT 34.0 % 37.5-5 1.0 low Not Available [facility] [address], [place], [address], 09/09/2023 16:42:35 09/08/19 24 09/08/2023 CBC WITH AUTO- DIFFE RENTI AL MCV 99 fL 79-97 high Not Available [facility] [address], [place], [address], 09/09/2023 16:42:35 09/08/19 24 09/08/2023 CBC WITH AUTO- DIFFE RENTI AL MCH 33.0 pg 26.6-3 3.0 Not Available [facility] [address], [place], [address], 09/09/2023 16:42:35 09/08/19 24 09/08/2023 CBC WITH AUTO- DIFFE RENTI AL MCHC 33.5 g/dL 31.5-3 5.7 Not Available [facility] [address], [place], [address], 09/09/2023 16:42:35 09/08/19 24 09/08/2023 CBC WITH AUTO- DIFFE RENTI AL RDW 14.1 % 11.5-1 4.5 Not Available [facility] [address] [facility] [address], [place], [address], 09/09/2023 16:42:35 09/08/19 24 09/08/2023 CBC WITH AUTO- DIFFE RENTI AL platelets 161 10*3/ uL 150-40 0 Not Available [facility] [address] [facility] [address], [place], [address], 09/09/2023 16:42:35 09/08/19 24 09/08/2023 CBC WITH AUTO- DIFFE RENTI AL MPV 10 fL 9-13 Not Available [facility] [address] [facility] [address], [place], [address], 09/09/2023 16:42:35 09/08/19 24 09/08/2023 CBC WITH AUTO- DIFFE RENTI AL neutrophils 59.0 % 40.0-7 4.0 Not Available [facility] [address] [facility] [address], [place], [address], 09/09/2023 16:42:35 09/08/19 24 09/08/2023 CBC WITH AUTO- DIFFE RENTI AL absolute neutrophils 2.71 10*3/ uL 1.40-7 .00 Not Available [facility] [address] [facility] [address], [place], [address], 09/09/2023 16:42:35 09/08/19 24 09/08/2023 CBC WITH AUTO- DIFFE RENTI AL lymphocytes 22.9 % 14.0-4 6.0 Not Available [facility] [address] [facility] [address], [place], [address], 09/09/2023 16:42:35 09/08/19 24 09/08/2023 CBC WITH AUTO- DIFFE RENTI AL absolute lymphocytes 1.05 10*3/ uL 0.70-3 .10 Not Available [facility] [address] [facility] [address], [place], [address], 09/09/2023 16:42:35 09/08/19 24 09/08/2023 CBC WITH AUTO- DIFFE RENTI AL monocytes 10.0 % 4.0-12 .0 Not Available [facility] [address] [facility] [address], [place], [address], 09/09/2023 16:42:35 09/08/19 24 09/08/2023 CBC WITH AUTO- DIFFE RENTI AL absolute monocytes 0.46 10*3/ uL 0.10-0 .90 Not Available [facility] [address] [facility] [address], [place], [address], 09/09/2023 16:42:35 09/08/19 24 09/08/2023 CBC WITH AUTO- DIFFE RENTI AL eosinophils 7.0 % 0.0-5. 0 high Not Available [facility] [address] [facility] [address], [place], [address], 09/09/2023 16:42:35 09/08/19 24 09/08/2023 CBC WITH AUTO- DIFFE RENTI AL absolute eosinophils 0.32 10*3/ uL 0.00-0 .40 Not Available [facility] [address] [facility] [address], [place], [address], 09/09/2023 16:42:35 09/08/19 24 09/08/2023 CBC WITH AUTO- DIFFE RENTI AL basophils 0.9 % 0.0-3. 0 Not Available [facility] [address] [facility] [address], [place], [address], 09/09/2023 16:42:35 09/08/19 24 09/08/2023 CBC WITH AUTO- DIFFE RENTI AL absolute basophils 0.04 10*3/ uL 0.00-0 .20 Not Available [facility] [address] [facility] [address], [place], [address], 09/09/2023 16:42:35 09/08/19 24 09/08/2023 CBC WITH AUTO- DIFFE RENTI AL imm. gran. 0.2 % 0.0-2. 0 Not Available [facility] [address] [facility] [address], [place], [address], 09/09/2023 16:42:35 09/08/19 24 09/08/2023 CBC WITH AUTO- DIFFE RENTI AL abs. imm. gran. 0.01 10*3/ uL 0.00-0 .10 Not Available [facility] [address] [facility] [address], [place], [address], 09/09/2023 16:42:35 09/08/19 24 09/08/2023 COMPR EHENS RADHA METAB OLIC PANEL sodium 143 mmol/ L 134-14 4 Not Available [facility] [address] [facility] [address], [place], [address], 09/09/2023 16:42:36 09/08/19 24 09/08/2023 COMPR EHENS RADHA METAB OLIC PANEL potassium 4.4 mmol/ L 3.5-5. 2 Not Available [facility] [address] [facility] [address], [place], [address], 09/09/2023 16:42:36 09/08/19 24 09/08/2023 COMPR EHENS RADHA METAB OLIC PANEL chloride 110 mmol/ L 97-108 high Not Available [facility] [address] [facility] [address], [place], [address], 09/09/2023 16:42:36 09/08/19 24 09/08/2023 COMPR EHENS RADHA METAB OLIC PANEL carbon dioxide (co2) 21.0 mmol/ L 18.0-2 9.0 Not Available [facility] [address] [facility] [address], [place], [address], 09/09/2023 16:42:36 09/08/19 24 09/08/2023 COMPR EHENS RADHA METAB OLIC PANEL glucose 108 mg/dL 65-99 high Sowmya l Fasti ng: < 100 mg/dL Impai red Fasti n - 125 mg/dL Diagn ostic of [facility]abe [facility]: => 126 mg/dL Ameri can [facility] iatio n, 2007 Not Available [facility] [address] [facility] [address], [place], [address], 09/09/2023 16:42:36 09/08/19 24 09/08/2023 COMPR EHENS RADHA METAB OLIC PANEL urea nitrogen (BUN) 30 mg/dL 8-23 high Not Available [facility] [address] [facility] [address], [place], [address], 09/09/2023 16:42:36 09/08/19 24 09/08/2023 COMPR EHENS RADHA METAB OLIC PANEL creatinine 1.46 mg/dL 0.76-1 .27 high Not Available [facility] [address] [facility] [address], [place], [address], 09/09/2023 16:42:36 09/08/19 24 09/08/2023 COMPR EHENS RADHA METAB OLIC PANEL eGFR 50 mL/mi nute/ 1.73_ m2 >59 low MDRD Study Equat ion: The calcu lated GFR is NOT appli cable for pedia tric (< 18 years old) and > 70 year old patie nts and patie nts that are NOT of stead y state . Not Available [facility] [address] [facility] [address], [place], [address], 09/09/2023 16:42:36 09/08/19 24 09/08/2023 COMPR EHENS RADHA METAB OLIC PANEL calcium 9.1 mg/dL 8.6-10 .2 Not Available [facility] [address] [facility] [address], [place], [address], 09/09/2023 16:42:36 09/08/19 24 09/08/2023 COMPR EHENS RADHA METAB OLIC PANEL protein, total 6.9 gm/dL 6.4-8. 3 Not Available [facility] [address] [facility] [address], [place], [address], 09/09/2023 16:42:36 09/08/19 24 09/08/2023 COMPR EHENS RADHA METAB OLIC PANEL albumin 4.3 gm/dL 3.5-5. 2 Not Available [facility] [address] [facility] [address], [place], [address], 09/09/2023 16:42:36 09/08/19 24 09/08/2023 COMPR EHENS RADHA METAB OLIC PANEL bilirubin, total 0.30 mg/dL 0.00-1 .20 Not Available [facility] [address] [facility] [address], [place], [address], 09/09/2023 16:42:36 09/08/19 24 09/08/2023 COMPR EHENS RADHA METAB OLIC PANEL alkaline phosphatase (ALP) 74 U/L 39-117 Not Available [facility] [address] [facility] [address], [place], [address], 09/09/2023 16:42:36 09/08/19 24 09/08/2023 COMPR EHENS RADHA METAB OLIC PANEL aspartate aminotransfe rase (AST) 21 U/L 0-40 Not Available [facility] [address] [facility] [address], [place], [address], 09/09/2023 16:42:36 09/08/19 24 09/08/2023 COMPR EHENS RADHA METAB OLIC PANEL alanine aminotransfe rase (ALT) 17 U/L 0-41 Not Available [facility] [address] [facility] [address], [place], [address], 09/09/2023 16:42:36 09/08/19 24 09/08/2023 COMPR EHENS RADHA METAB OLIC PANEL A/G ratio (calculated) 1.7 ratio 1.0-2. 7 Not Available [facility] [address] [facility] [address], [place], [address], 09/09/2023 16:42:36 09/08/19 24 09/08/2023 COMPR EHENS RADHA METAB OLIC PANEL globulin (calculated) 2.6 gm/dL 1.5-3. 8 Not Available [facility] [address] [facility] [address], [place], [address], 09/09/2023 16:42:36 09/08/19 24 09/08/2023 COMPR EHENS RADHA METAB OLIC PANEL BUN/creatini ne ratio (calculated) 20.5 ratio 8.0-20 .0 high Not Available [facility] [address] [facility] [address], [place], [address], 09/09/2023 16:42:36 09/08/19 24 09/08/2023 COMPR EHENS RADHA METAB OLIC PANEL serum hemolysis index NORMAL index normal Not Available [facility] [address] [facility] [address], [place], [address], 09/09/2023 16:42:36 09/08/19 24 09/08/2023 WILVER TIN ferritin 102 NG/mL 30-400 Not Available [facility] [address] [facility] [address], [place], [address], 09/09/2023 16:42:37 09/08/19 24 09/08/2023 FREE T3 triiodothyro nine (T3), free 2.48 pg/mL 2.00-4 .40 NOTE: REFER ENCE RANGE S FOR PATIE NTS < 16 YEARS OF AGE HAS NOT BEEN VALID ATED. FOR INFOR MATIO N ONLY. PREGN ANT FEMAL E: 1st Trime ster: 1.6-3 .3 pg/mL 2nd Trime ster: Not Estab lishe d 3rd Trime ster: 1.0-3 .2 pg/mL Not Available [facility] [address] [facility] [address], [place], [address], 09/09/2023 16:42:37 09/08/19 24 09/08/2023 FREE T4 thyroxine (T4), free 0.86 NG/dL 0.82-1 .77 Not Available [facility] [address] [facility] [address], [place], [address], 09/09/2023 16:42:38 09/08/19 24 09/08/2023 FOLAT E, SERUM folate 18.4 NG/mL 20 REFER ENCE RANGE : Sowmya l: > 3.0 ng/mL Inter media te: 2.2 - 3.0 ng/mL Defic ient: < 2.2 ng/mL Not Available [facility] [address] [facility] [address], [place], [address], 09/09/2023 16:42:38 09/08/19 24 09/08/2023 TOTAL IRON ALYCE NG CAPAC ITY iron 72 mcg/d L Not Available [facility] [address] [facility] [address], [place], [address], 09/09/2023 16:42:39 09/08/19 24 09/08/2023 TOTAL IRON ALYCE NG CAPAC ITY UIBC 208 ug/dL 111-34 3 Not Available [facility] [address] [facility] [address], [place], [address], 09/09/2023 16:42:39 09/08/19 24 09/08/2023 TOTAL IRON ALYCE NG CAPAC ITY total iron binding capacity 280.0 mcg/d L 250.0- 450.0 Not Available [facility] [address] [facility] [address], [place], [address], 09/09/2023 16:42:39 09/08/19 24 09/08/2023 TOTAL IRON ALYCE NG CAPAC ITY iron saturation (calculated) 25.7 % 15.0-5 5.0 Not Available [facility] [address] [facility] [address], [place], [address], 09/09/2023 16:42:39 07/09/08/2023 THYRO ID-ST IM. HORMO NE (TSH) , HIGH- SENSI TIVE thyroid-stim . hormone (TSH), hs 3.52 uIU/m L 0.27-4 .20 Not Available [facility] [address], [place], [address], 09/09/2023 16:42:39 09/08/19 24 09/08/2023 VITAM IN B12 vitamin B12 333 pg/mL 232-12 45 Not Available [facility] [address], [place], [address], 09/09/2023 16:42:40 12/15/1912/15/2023 HEMOG LOBIN A1C hemoglobin A1C 4.8 % 4.8-5. 6 SOWMYA L RANGE BASED ON YADIEL COL 2 (DCCT /NGSP ): Non-D iabet ic: < 5.7% Pre-D iabet es: 5.7 - 6.4% Diabe prosper: => 6.5% GLYCE ALEX CONTR OL: < 7.0% Not Available [facility] [address] [facility] [address], [place], [address], 12/16/2023 14:28:29 12/15/1912/15/2023 HEMOG LOBIN A1C estimated average glucose 92 Not Available [facility] [address] [facility] [address], [place], [address], 12/16/2023 14:28:29 12/15/1912/15/2023 CBC WITH AUTO- DIFFE RENTI AL WBC 4.8 10*3/ uL 3.4-10 .8 Not Available [facility] [address], [place], [address], 12/16/2023 14:28:30 12/15/19 24 12/15/2023 CBC WITH AUTO- DIFFE RENTI AL RBC 3.49 10*6/ uL 4.20-5 .80 low Not Available [facility] [address], [place], [address], 12/16/2023 14:28:30 12/15/1912/15/2023 CBC WITH AUTO- DIFFE RENTI AL HGB 11.2 g/dL 12.6-1 7.7 low Not Available [facility] [address] [facility] [address], [place], [address], 12/16/2023 14:28:30 12/15/1912/15/2023 CBC WITH AUTO- DIFFE RENTI AL HCT 33.1 % 37.5-5 1.0 low Not Available [facility] [address], [place], [address], 12/16/2023 14:28:30 12/15/1912/15/2023 CBC WITH AUTO- DIFFE RENTI AL MCV 95 fL 79-97 Not Available [facility] [address], [place], [address], 12/16/2023 14:28:30 12/15/1912/15/2023 CBC WITH AUTO- DIFFE RENTI AL MCH 32.1 pg 26.6-3 3.0 Not Available [facility] [address] [facility], [place], [address], 12/16/2023 14:28:30 12/15/1912/15/2023 CBC WITH AUTO- DIFFE RENTI AL MCHC 33.8 g/dL 31.5-3 5.7 Not Available [facility] [address], [place], [address], 12/16/2023 14:28:30 12/15/1912/15/2023 CBC WITH AUTO- DIFFE RENTI AL RDW 13.9 % 11.5-1 4.5 Not Available [facility] [address] [facility] [address], [place], [address], 12/16/2023 14:28:30 12/15/1912/15/2023 CBC WITH AUTO- DIFFE RENTI AL platelets 188 10*3/ uL 150-40 0 Not Available [facility] [address] [facility] [address], [place], [address], 12/16/2023 14:28:30 12/15/1912/15/2023 CBC WITH AUTO- DIFFE RENTI AL MPV 10 fL 9-13 Not Available [facility] [address] [facility] [address], [place], [address], 12/16/2023 14:28:30 12/15/1912/15/2023 CBC WITH AUTO- DIFFE RENTI AL neutrophils 57.0 % 40.0-7 4.0 Not Available [facility] [address] [facility] [address], [place], [address], 12/16/2023 14:28:30 12/15/1912/15/2023 CBC WITH AUTO- DIFFE RENTI AL absolute neutrophils 2.76 10*3/ uL 1.40-7 .00 Not Available [facility] [address] [facility] [address], [place], [address], 12/16/2023 14:28:30 12/15/1912/15/2023 CBC WITH AUTO- DIFFE RENTI AL lymphocytes 25.2 % 14.0-4 6.0 Not Available [facility] [address] [facility] [address], [place], [address], 12/16/2023 14:28:30 12/15/1912/15/2023 CBC WITH AUTO- DIFFE RENTI AL absolute lymphocytes 1.22 10*3/ uL 0.70-3 .10 Not Available [facility] [address] [facility] [address], [place], [address], 12/16/2023 14:28:30 12/15/1912/15/2023 CBC WITH AUTO- DIFFE RENTI AL monocytes 11.6 % 4.0-12 .0 Not Available [facility] [address] [facility] [address], [place], [address], 12/16/2023 14:28:30 12/15/1912/15/2023 CBC WITH AUTO- DIFFE RENTI AL absolute monocytes 0.56 10*3/ uL 0.10-0 .90 Not Available [facility] [address] [facility] [address], [place], [address], 12/16/2023 14:28:30 12/15/1912/15/2023 CBC WITH AUTO- DIFFE RENTI AL eosinophils 5.2 % 0.0-5. 0 high Not Available [facility] [address] [facility] [address], [place], [address], 12/16/2023 14:28:30 12/15/1912/15/2023 CBC WITH AUTO- DIFFE RENTI AL absolute eosinophils 0.25 10*3/ uL 0.00-0 .40 Not Available [facility] [address] [facility] [address], [place], [address], 12/16/2023 14:28:30 12/15/19 24 12/15/2023 CBC WITH AUTO- DIFFE RENTI AL basophils 0.6 % 0.0-3. 0 Not Available [facility] [address] [facility] [address], [place], [address], 12/16/2023 14:28:30 12/15/19 24 12/15/2023 CBC WITH AUTO- DIFFE RENTI AL absolute basophils 0.03 10*3/ uL 0.00-0 .20 Not Available [facility] [address] [facility] [address], [place], [address], 12/16/2023 14:28:30 12/15/19 24 12/15/2023 CBC WITH AUTO- DIFFE RENTI AL imm. gran. 0.4 % 0.0-2. 0 Not Available [facility] [address] [facility] [address], [place], [address], 12/16/2023 14:28:30 12/15/1912/15/2023 CBC WITH AUTO- DIFFE RENTI AL abs. imm. gran. 0.02 10*3/ uL 0.00-0 .10 Not Available [facility] [address] [facility] [address], [place], [address], 12/16/2023 14:28:30 12/15/1912/15/2023 COMPR EHENS RADHA METAB OLIC PANEL sodium 145 mmol/ L 134-14 4 high Not Available [facility] [address] [facility] [address], [place], [address], 12/16/2023 14:28:31 12/15/1912/15/2023 COMPR EHENS RADHA METAB OLIC PANEL potassium 4.5 mmol/ L 3.5-5. 2 Not Available [facility] [address] [facility] [address], [place], [address], 12/16/2023 14:28:31 12/15/19 24 12/15/2023 COMPR EHENS RADHA METAB OLIC PANEL chloride 111 mmol/ L 98-107 high Not Available [facility] [address] [facility] [address], [place], [address], 12/16/2023 14:28:31 12/15/1912/15/2023 COMPR EHENS RADHA METAB OLIC PANEL carbon dioxide (co2) 19.0 mmol/ L 18.0-2 9.0 Not Available [facility] [address] [facility] [address], [place], [address], 12/16/2023 14:28:31 12/15/19 24 12/15/2023 COMPR EHENS RADHA METAB OLIC PANEL glucose 97 mg/dL 65-99 Sowmya l Fasti n - 99 mg/dL Impai red Fasti n - 125 mg/dL Diagn ostic of [facility]abe [facility]: => 126 mg/dL Ameri can [facility] iatio n, 2007 Not Available [facility] [address] [facility] [address], [place], [address], 12/16/2023 14:28:31 12/15/1912/15/2023 COMPR EHENS RADHA METAB OLIC PANEL urea nitrogen (BUN) 29 mg/dL 8-23 high Not Available [facility] [address] [facility] [address], [place], [address], 12/16/2023 14:28:31 12/15/1912/15/2023 COMPR EHENS RADHA METAB OLIC PANEL creatinine 1.18 mg/dL 0.76-1 .27 Not Available [facility] [address] [facility] [address], [place], [address], 12/16/2023 14:28:31 12/15/1912/15/2023 COMPR EHENS RADHA METAB OLIC PANEL eGFR 64 mL/mi nute/ 1.73_ m2 >59 MDRD Study Equat ion: The calcu lated GFR is NOT appli cable for pedia tric (< 18 years old) and > 70 year old patie nts and patie nts that are NOT of stead y state . Not Available [facility] [address] [facility] [address], [place], [address], 12/16/2023 14:28:31 12/15/1912/15/2023 COMPR EHENS RADHA METAB OLIC PANEL calcium 8.9 mg/dL 8.6-10 .2 Not Available [facility] [address] [facility] [address], [place], [address], 12/16/2023 14:28:31 12/15/19 24 12/15/2023 COMPR EHENS RADHA METAB OLIC PANEL protein, total 6.9 gm/dL 6.4-8. 3 Not Available [facility] [address] [facility] [address], [place], [address], 12/16/2023 14:28:31 12/15/1912/15/2023 COMPR EHENS RADHA METAB OLIC PANEL albumin 4.2 gm/dL 3.5-5. 2 Not Available [facility] [address] [facility] [address], [place], [address], 12/16/2023 14:28:31 12/15/1912/15/2023 COMPR EHENS RADHA METAB OLIC PANEL bilirubin, total 0.30 mg/dL 0.00-1 .20 Not Available [facility] [address] [facility] [address], [place], [address], 12/16/2023 14:28:31 12/15/19 24 12/15/2023 COMPR EHENS RADHA METAB OLIC PANEL alkaline phosphatase (ALP) 80 U/L 39-117 Not Available [facility] [address] [facility] [address], [place], [address], 12/16/2023 14:28:31 12/15/1912/15/2023 COMPR EHENS RADHA METAB OLIC PANEL aspartate aminotransfe rase (AST) 20 U/L 0-40 Not Available [facility] [address] [facility] [address], [place], [address], 12/16/2023 14:28:31 12/15/1912/15/2023 COMPR EHENS RADHA METAB OLIC PANEL alanine aminotransfe rase (ALT) 17 U/L 0-41 Not Available [facility] [address] [place] [address] [address], [place], [address], 12/16/2023 14:28:31 12/15/1912/15/2023 COMPR EHENS RADHA METAB OLIC PANEL A/G ratio (calculated) 1.6 ratio 1.0-2. 7 Not Available [facility] [address] [facility] [address], [place], [address], 12/16/2023 14:28:31 12/15/19 24 12/15/2023 COMPR EHENS RADHA METAB OLIC PANEL globulin (calculated) 2.7 gm/dL 1.5-3. 8 Not Available [facility] [address], [place], [address], 12/16/2023 14:28:31 12/15/19 24 12/15/2023 COMPR EHENS RADHA METAB OLIC PANEL BUN/creatini ne ratio (calculated) 24.6 ratio 8.0-20 .0 high Not Available [facility] [address] [facility] [address], [place], [address], 12/16/2023 14:28:31 12/15/19 24 12/15/2023 COMPR EHENS RADHA METAB OLIC PANEL serum hemolysis index NORMAL index normal Not Available [facility] [address] [facility] [address], [place], [address], 12/16/2023 14:28:31 03/22/19 25 03/22/2024 CBC WITH AUTO- DIFFE RENTI AL WBC 11.3 10*3/ uL 3.4-10 .8 high Not Available [facility] [address] [facility] [address], [place], [address], 03/24/2024 15:03:18 03/22/1903/22/2024 CBC WITH AUTO- DIFFE RENTI AL RBC 3.55 10*6/ uL 4.20-5 .80 low Not Available [facility] [address] [facility] [address], [place], [address], 03/24/2024 15:03:18 03/22/19 25 03/22/2024 CBC WITH AUTO- DIFFE RENTI AL HGB 11.3 g/dL 12.6-1 7.7 low Not Available [facility] [address] [facility] [address], [place], [address], 03/24/2024 15:03:18 03/22/19 25 03/22/2024 CBC WITH AUTO- DIFFE RENTI AL HCT 33.3 % 37.5-5 1.0 low Not Available [facility] [address], [place], [address], 03/24/2024 15:03:18 03/22/1903/22/2024 CBC WITH AUTO- DIFFE RENTI AL MCV 94 fL 79-97 Not Available [facility] [address], [place], [address], 03/24/2024 15:03:18 03/22/1903/22/2024 CBC WITH AUTO- DIFFE RENTI AL MCH 31.8 pg 26.6-3 3.0 Not Available [facility] [address], [place], [address], 03/24/2024 15:03:18 03/22/1903/22/2024 CBC WITH AUTO- DIFFE RENTI AL MCHC 33.9 g/dL 31.5-3 5.7 Not Available [facility] [address] [facility] [address], [place], [address], 03/24/2024 15:03:18 03/22/1903/22/2024 CBC WITH AUTO- DIFFE RENTI AL RDW 14.2 % 11.5-1 4.5 Not Available [facility] [address], [place], [address], 03/24/2024 15:03:18 03/22/1903/22/2024 CBC WITH AUTO- DIFFE RENTI AL platelets 144 10*3/ uL 150-40 0 low Not Available [facility] [address], [place], [address], 03/24/2024 15:03:18 03/22/1903/22/2024 CBC WITH AUTO- DIFFE RENTI AL MPV 10 fL 9-13 Not Available [facility] [address] [facility] [address], [place], [address], 03/24/2024 15:03:18 03/22/1903/22/2024 CBC WITH AUTO- DIFFE RENTI AL neutrophils 79.2 % 40.0-7 4.0 high Not Available [facility] [address] [facility] [address], [place], [address], 03/24/2024 15:03:18 03/22/1903/22/2024 CBC WITH AUTO- DIFFE RENTI AL absolute neutrophils 8.98 10*3/ uL 1.40-7 .00 high Not Available [facility] [address] [facility] [address], [place], [address], 03/24/2024 15:03:18 03/22/1903/22/2024 CBC WITH AUTO- DIFFE RENTI AL lymphocytes 13.6 % 14.0-4 6.0 low Not Available [facility] [address] [facility] [address], [place], [address], 03/24/2024 15:03:18 03/22/1903/22/2024 CBC WITH AUTO- DIFFE RENTI AL absolute lymphocytes 1.54 10*3/ uL 0.70-3 .10 Not Available [facility] [address] [facility] [address], [place], [address], 03/24/2024 15:03:18 03/22/1903/22/2024 CBC WITH AUTO- DIFFE RENTI AL monocytes 6.2 % 4.0-12 .0 Not Available [facility] [address] [facility] [address], [place], [address], 03/24/2024 15:03:18 03/22/1903/22/2024 CBC WITH AUTO- DIFFE RENTI AL absolute monocytes 0.70 10*3/ uL 0.10-0 .90 Not Available [facility] [address] [facility] [address], [place], [address], 03/24/2024 15:03:18 03/22/19 25 03/22/2024 CBC WITH AUTO- DIFFE RENTI AL eosinophils 0.2 % 0.0-5. 0 Not Available [facility] [address] [facility] [address], [place], [address], 03/24/2024 15:03:18 03/22/19 25 03/22/2024 CBC WITH AUTO- DIFFE RENTI AL absolute eosinophils 0.02 10*3/ uL 0.00-0 .40 Not Available [place] [address] [facility] [address], [place], [address], 03/24/2024 15:03:18 03/22/19 25 03/22/2024 CBC WITH AUTO- DIFFE RENTI AL basophils 0.3 % 0.0-3. 0 Not Available [facility] [address] [facility] [address], [place], [address], 03/24/2024 15:03:18 03/22/19 25 03/22/2024 CBC WITH AUTO- DIFFE RENTI AL absolute basophils 0.03 10*3/ uL 0.00-0 .20 Not Available [address], [place], [address], 03/24/2024 15:03:18 03/22/1903/22/2024 CBC WITH AUTO- DIFFE RENTI AL imm. gran. 0.5 % 0.0-2. 0 Not Available [address], [place], [address], 03/24/2024 15:03:18 03/22/19 25 03/22/2024 CBC WITH AUTO- DIFFE RENTI AL abs. imm. gran. 0.06 10*3/ uL 0.00-0 .10 Not Available [place] [address] [facility] [address], [place], [address], 03/24/2024 15:03:18 03/22/1903/22/2024 COMPR EHENS RADHA METAB OLIC PANEL sodium 144 mmol/ L 134-14 4 Not Available [facility] [address] [facility] [address], [place], [address], 03/24/2024 15:03:19 03/22/19 25 03/22/2024 COMPR EHENS RADHA METAB OLIC PANEL potassium 3.7 mmol/ L 3.5-5. 2 Not Available [facility] [address] [facility] [address], [place], [address], 03/24/2024 15:03:19 03/22/19 25 03/22/2024 COMPR EHENS RADHA METAB OLIC PANEL chloride 107 mmol/ L 98-107 Not Available [facility] [address] [facility] [address], [place], [address], 03/24/2024 15:03:19 03/22/19 25 03/22/2024 COMPR EHENS RADHA METAB OLIC PANEL carbon dioxide (co2) 23.0 mmol/ L 18.0-2 9.0 Not Available [facility] [address] [facility] [address], [place], [address], 03/24/2024 15:03:19 03/22/1903/22/2024 COMPR EHENS RADHA METAB OLIC PANEL glucose 109 mg/dL 65-99 high Sowmya l Fasti n - 99 mg/dL Impai red Fasti n - 125 mg/dL Diagn ostic of Di[facility]: => 126 mg/dL Ameri can [facility] n, 2007 Not Available [facility] [address] [facility] [address], [place], [address], 03/24/2024 15:03:19 03/22/1903/22/2024 COMPR EHENS RADHA METAB OLIC PANEL urea nitrogen (BUN) 21 mg/dL 8-23 Not Available [facility] [address], [place], [address], 03/24/2024 15:03:19 03/22/1903/22/2024 COMPR EHENS RADHA METAB OLIC PANEL creatinine 1.23 mg/dL 0.76-1 .27 Not Available [facility] [address], [place], [address], 03/24/2024 15:03:03/22/1903/22/2024 COMPR EHENS RADHA METAB OLIC PANEL eGFR 61 mL/mi nute/ 1.73_ m2 >59 MDRD Study Equat ion: The calcu lated GFR is NOT appli cable for pedia tric (< 18 years old) and > 70 year old patie nts and patie nts that are NOT of stead y state . Not Available [facility] [address], [place], [address], 03/24/2024 15:03:03/22/1903/22/2024 COMPR EHENS RADHA METAB OLIC PANEL calcium 8.7 mg/dL 8.6-10 .2 Not Available [facility] [address] [facility] [address], [place], [address], 03/24/2024 15:03:03/22/1903/22/2024 COMPR EHENS RADHA METAB OLIC PANEL protein, total 7.0 gm/dL 6.4-8. 3 Not Available [facility] [address] [facility] [address], [place], [address], 03/24/2024 15:03:19 03/22/1903/22/2024 COMPR EHENS RADHA METAB OLIC PANEL albumin 4.3 gm/dL 3.5-5. 2 Not Available [facility] [address] [facility] [address], [place], [address], 03/24/2024 15:03:19 03/22/19 25 03/22/2024 COMPR EHENS RADHA METAB OLIC PANEL bilirubin, total 1.20 mg/dL 0.00-1 .20 Not Available [facility] [address] [facility] [address], [place], [address], 03/24/2024 15:03:19 03/22/19 25 03/22/2024 COMPR EHENS RADHA METAB OLIC PANEL alkaline phosphatase (ALP) 73 U/L 39-117 Not Available [facility] [address] [facility] [address], [place], [address], 03/24/2024 15:03:19 03/22/19 25 03/22/2024 COMPR EHENS RADHA METAB OLIC PANEL aspartate aminotransfe rase (AST) 22 U/L 0-40 Not Available [facility] [address] [facility] [address], [place], [address], 03/24/2024 15:03:19 03/22/19 25 03/22/2024 COMPR EHENS RADHA METAB OLIC PANEL alanine aminotransfe rase (ALT) 15 U/L 0-41 Not Available [facility] [address] [facility] [address], [place], [address], 03/24/2024 15:03:19 03/22/1903/22/2024 COMPR EHENS RADHA METAB OLIC PANEL A/G ratio (calculated) 1.6 ratio 1.0-2. 7 Not Available [facility] [address] [facility] [address], [place], [address], 03/24/2024 15:03:19 03/22/19 25 03/22/2024 COMPR EHENS RADHA METAB OLIC PANEL globulin (calculated) 2.7 gm/dL 1.5-3. 8 Not Available [facility] [address] [facility] [address], [place], [address], 03/24/2024 15:03:19 03/22/19 25 03/22/2024 COMPR EHENS RADHA METAB OLIC PANEL BUN/creatini ne ratio (calculated) 17.1 ratio 8.0-20 .0 Not Available [facility] [address] [facility] [address], [place], [address], 03/24/2024 15:03:19 03/22/19 25 03/22/2024 COMPR EHENS RADHA METAB OLIC PANEL serum hemolysis index Normal index normal Not Available [facility] [address] [facility] [address], [place], [address], 03/24/2024 15:03:19 03/22/19 25 03/22/2024 FREE T3 triiodothyro nine (T3), free 2.05 pg/mL 2.00-4 .40 NOTE: REFER ENCE RANGE S FOR PATIE NTS < 16 YEARS OF AGE HAS NOT BEEN VALID ATED. FOR INFOR MATIO N ONLY. PREGN ANT FEMAL E: 1st Trime ster: 1.6-3 .3 pg/mL 2nd Trime ster: Not Estab lishe d 3rd Trime ster: 1.0-3 .2 pg/mL Not Available [facility] [address] [facility] [address], [place], [address], 03/24/2024 15:03:20 03/22/19 25 03/22/2024 FREE T4 thyroxine (T4), free 0.87 NG/dL 0.82-1 .77 Not Available [facility] [address] [facility] [address], [place], [address], 03/24/2024 15:03:20 03/22/19 25 03/22/2024 LIPID PANEL W/ CALC. LDL cholesterol, total 124 mg/dL 100-19 9 Not Available [facility] [address] [facility] [address], [place], [address], 03/24/2024 15:03:21 03/22/19 25 03/22/2024 LIPID PANEL W/ CALC. LDL HDL cholesterol 37 mg/dL =>40 Not Available [facility] [address] [facility] [address], [place], [address], 03/24/2024 15:03:21 03/22/19 25 03/22/2024 LIPID PANEL W/ CALC. LDL LDL cholesterol (calculated) 66 mg/dL 0-99 Not Available [facility] [address] [facility] [address], [place], [address], 03/24/2024 15:03:21 03/22/19 25 03/22/2024 LIPID PANEL W/ CALC. LDL triglyceride s 105 mg/dL 50-149 Not Available [facility] [address] [facility] [address], [place], [address], 03/24/2024 15:03:21 03/22/19 25 03/22/2024 LIPID PANEL W/ CALC. LDL chol/HDL ratio (calculated) 3.35 ratio 0.00-5 .00 Not Available [facility] [address] [facility] [address], [place], [address], 03/24/2024 15:03:21 03/22/19 25 03/22/2024 LIPID PANEL W/ CALC. LDL VLDL cholesterol (calculated) 21 mg/dL 5-40 Not Available [facility] [address] [facility] [address], [place], [address], 03/24/2024 15:03:21 03/22/19 25 03/22/2024 THYRO ID-ST IM. HORMO NE (TSH) thyroid-stim . hormone (TSH) 1.33 uIU/m L 0.27-4 .20 Not Available [facility] [address] [facility] [address], [place], [address], 03/24/2024 15:03:22 03/22/19 25 03/22/2024 VITAM IN B12 vitamin B12 298 pg/mL 232-12 45 Not Available [facility] [address] [facility] [address], [place], [address], 03/24/2024 15:03:22 03/22/19 25 03/22/2024 VITAM IN D, 25-HY DROXY TOTAL vitamin D, total 37.6 NG/mL 30.0-1 00.0 The Vitam in D Assay ras fuentes has been updat ed to offer direc t trace abili ty to ID-LC -MS/M S Refer ence Measu remen t Proce dure along with a reduc tion in bioti n inter feren ce. Defic ient: < 30 ng/mL Insuf ficie nt: 21 - 29 ng/mL Suffi cient : 30 - 100 ng/mL Poten tial Intox icati on: > 100 ng/mL Not Available [facility] [address], [place], [address], 03/24/2024 15:03:23 02/25/19 24 02/25/2023 elect rocar noemigr am No observ ation record ed. [facility], [facility] [address], [place], [address], 05/27/2023 12:29:11 02/25/19 24 02/25/2023 elect rocvivian franklingr am No observ ation record ed. [facility], [facility] [address], [place], [address], 05/27/2023 12:29:11 04/06/19 24 04/02/2023 XR, shoul mini, 2 or more view No observ ation record ed. [facility] [address], [place], [address], 05/27/2023 12:29:10 04/06/19 24 04/02/2023 XR, cervi alison spine , 2 or 3 view No observ ation record ed. [facility] [address], [place], [address], 05/27/2023 12:29:10 04/06/19 24 04/02/2023 XR, thora cic spine , 2 view No observ ation record ed. [facility] [address], [place], [address], 05/27/2023 12:29:10 04/06/19 24 04/02/2023 XR, lumba r spine No observ ation record ed. [facility] [address], [place], [address], 05/27/2023 12:29:10 04/06/19 24 04/07/2023 US, duple x, carot id arter y No observ ation record ed. [facility], [facility] [address], [place], [address], 05/27/2023 12:29:10 05/31/19 24 05/06/2023 US, quinn x, carot id arter y No observ ation record ed. [facility], [facility] [address], [place], [address], 09/22/2023 23:07:18 09/12/19 24 11/09/2022 elect philippe vidal am No observ ation record ed. [facility] Not Available 2023 17:48:23 09/12/19 24 08/12/2023 US, echoc ardio gram No observ ation record ed. [facility] Not Available 2023 17:48:23 12/03/19 24 12/03/2023 XR, knee, 4 or more view No observ ation record ed. [facility] [address], [place], [address], 12/15/2023 17:48:23 12/15/19 24 08/12/2023 US, echoc ardio gram No observ ation record ed. [facility] Not Available 2024 18:37:37 Result Notes None recorded. 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 56402116123 9101 Active 2018 Not Available [facility] 2 09:04:19 Kidney stone 74658137 Active 2018 Not Available [facility] 2 09:04:19 Multiple nodules of lung 289841472 Active 2018 Not Available [facility] 2 09:04:19 Benign hypertens ion 80889616 Completed 201801/25/2020 Walter Liz MD [address], [place], [address] , [facility] 2 20:09:49 Cholelith iasis without obstructi on 76843120 Active 2018 Not Available [facility] 2 09:04:19 Periphera l vascular disease 790126123 Active 2019 Not Available [facility] 2 09:04:19 Anemia 944884976 Active 2019 Not Available [facility] 2 09:04:19 Vitamin B12 deficienc y (non anemic) 74121098 Active 2019 Not Available [facility] 2 09:04:19 Osteoarth ritis of knee 260857772 Active 2019 Not Available [facility] 2 09:04:19 Inguinal hernia 580732656 Active [address] 02/29/20 Not Available [facility] 2 09:04:19 Diverticu losis of colon 554574241 Active 2020 Not Available [facility] 2 09:04:19 Hiatal hernia 21061288 [address] abd 02/29/20 Not Available [facility] 2 09:04:19 Osteopeni a 625450480 Active 2020 on DEXA Not Available [facility] 2 09:04:19 Thyroid stimulati ng hormone level above reference range 062406587 Active 2020 Not Available [facility] 2 09:04:19 Benign hypertens ion 41310255 Active 2021 Not Available [facility] 2 09:04:19 History of SARS-CoV- 2 67982964641 9309152 Active 2021 Not Available [facility] 2 09:04:19 Long-term drug therapy Active 2021 Walter Liz MD [address], [place], [address] , [facility] 2 17:47:29 History of polyp of colon 939697474 Active 2022 Walter Liz MD [address], [place], [address] , [facility] 3 19:39:51 Cardiac tamponade 33803411 Active 2022 Waletr Liz MD [address], [place], [address] , [facility] 3 15:14:21 Benign prostatic hyperplas ia without outflow obstructi on 333788542 Completed 02/03/2021 Walter Liz MD [address], [place], [address] , [facility] 1 15:26:03 Chronic sinusitis 61495455 Active Not Available [facility] 2 09:04:19 Coronary arteriosc lerosis 55347711 Active Not Available [facility] 2 09:04:19 Benign essential hypertens ion 3865435 Active Not Available [facility] 2 09:04:19 Hyperlipi demia 19281425 Active Not Available [facility] 2 09:04:19 Impotence of organic origin Completed 01/25/2020 Walter Liz MD [address], [place], [address] , [facility] 0 16:11:10 Sleep apnea 48601111 Active Not Available [facility] 2 09:04:19 Bilateral inguinal hernia 25206631 Active [address] abd Walter Liz MD [address], [place], [address] , [facility] 3 13:51:48 Hypokalem ia 50494942 Active 2022 Walter Liz MD [address], [place], [address] , [facility] 3 12:57:53 Carotid atheroscl erosis 520398043 Active 2023 Walter Liz MD [address], [place], [address] , [facility] 4 22:13:47 Problem Notes None recorded. Procedures Surgical History Date Name Laterality Status Provider Name and Address Organization Details Recorded Time 03/09/19 19 prostatectomy completed Walter Liz MD [address], [place], [address], [facility] 03/28/2018 17:00:43 Appendectomy completed Walter Liz MD [address], [place], [address], [facility] 03/28/2018 17:00:54 umbilical hernioplasty completed Walter Liz MD [address], [place], [address], [place] [facility] 03/28/2018 17:01:18 Imaging Results Imaging Date Name Status LastModified by Organization Details LastModified Time 02/25/2023 electrocardiogram completed [facility] [address], [place], [address], 05/27/2023 12:29:11 02/25/2023 electrocardiogram completed [facility] [address], [place], [address], 05/27/2023 12:29:11 04/02/2023 XR, shoulder, 2 or more view completed [address], [address], 05/27/2023 12:29:10 04/02/2023 XR, cervical spine, 2 or 3 view completed [address], [address], 05/27/2023 12:29:10 04/02/2023 XR, thoracic spine, 2 view completed [address], [address], 05/27/2023 12:29:10 04/02/2023 XR, lumbar spine completed [address], [address], 05/27/2023 12:29:10 04/07/2023 US, duplex, carotid artery completed [facility] [address], [place], [address], 05/27/2023 12:29:10 11/09/2022 electrocardiogram completed [facility] Informa tion not available 12/15/2023 17:48:23 08/12/2023 US, echocardiogram completed [facility] Inform ation not available 12/15/2023 17:48:23 05/06/2023 US, duplex, carotid artery completed [facility] [address], [place], [address], 09/22/2023 23:07:18 12/03/2023 XR, knee, 4 or more view completed [facility] [address], [place], [address], 12/15/2023 17:48:23 08/12/2023 US, echocardiogram completed [facility] Inform ation not available 03/22/2024 18:37:37 Procedure Notes None recorded. Medical Equipment None Reported. Allergies Allergen ID Allergen Name Allergen Category Reaction Reaction Severity Criticality Documentation Date Start Date Code Code System Note Provider Name and Address Organization Details Recorded Time 1449 honey bee venom environme nt Not available Not available Not available 07/12/2015 29031 7 RxNorm Sana Wade [facility] 6 10:30:50 Medications Name Sig Start Date Stop Date Status Note LastModified by Organization Details LastModified Time amoxicillin 500 mg capsule 01/16 completed Not Available Not Available Not Available atorvastati n 40 mg tablet TAKE 1 TABLET BY MOUTH EVERYDAY AT BEDTIME 2024 active Not Available Not Available Not Avai lable bicalutamid e 50 mg tablet 04/26 completed Not Available Not Available Not Available carvedilol 6.25 mg tablet TAKE 1 TABLET BY MOUTH TWICE A DAY WITH MEALS active Not Available Not Available No t Available doxycycline hyclate 100 mg capsule TAKE 1 CAPSULE BY MOUTH TWICE A DAY active Not Available Not Available No t Available carvedilol 12.5 mg tablet TAKE 1 Tablet BY MOUTH TWICE DAILY WITH MEALS 11/02 completed Not Available Not Available Not Available clindamycin HCl 300 mg capsule Take 1 capsule every 6 hours by oral route. 08/06 completed Not Available Not Available Not Available trazodone 50 mg tablet TAKE 1 Tablet BY MOUTH EVERY NIGHT AT BEDTIME 12/15 completed Not Available Not Available Not Available cetirizine 10 mg tablet TAKE 1 TABLET BY MOUTH DAILY FOR 5 DAYS 05/20 completed Not Available Not Available Not Available azithromyci n 250 mg tablet TAKE 2 TABLETS BY MOUTH TODAY, THEN TAKE 1 TABLET DAILY FOR 4 DAYS DIRECTED active Not Available Not Available No t Available valacyclovi r 1 gram tablet TAKE 1 TABLET BY MOUTH EVERY DAY TAKE WITH PLENTY OF FLUIDS active Not Available Not Available No t Available enalapril maleate 20 mg tablet TAKE 1 TABLET BY MOUTH EVERY DAY active Not Available Not Available No t Available ondansetron HCl 4 mg tablet Take 1 tablet 3 times a day by oral route as needed. 06/24 completed Not Available Not Available Not Available prednisone 20 mg tablet 07/29 completed Not Available Not Available Not Available alendronate 70 mg tablet PLEASE SEE ATTACHED FOR DETAILED DIRECTION S 09/07 completed Not Available Not Available Not Available Viagra 50 mg tablet Take 1 tablet every day by oral route as needed. 03/28 completed Not Available Not Available Not Available amlodipine 2.5 mg tablet TAKE 1 TABLET EVERY DAY BY ORAL ROUTE IN THE MORNING. 12/15 completed Not Available Not Available Not Available acetaminoph en 300 mg-codeine 30 mg tablet 01/16 completed Not Available Not Available Not Available clopidogrel 75 mg tablet TAKE 1 TABLET BY MOUTH EVERY DAY active Not Available Not Available No t Available ciprofloxac in 250 mg tablet 09/30 completed Not Available Not Available Not Available valacyclovi r 500 mg tablet 1 tab BID active Not Available Not Available No t Available ciprofloxac in 500 mg tablet TAKE 1 TABLET BY MOUTH EVERY 12 HOURS 12/21 completed Not Available Not Available Not Available sulfamethox azole 800 mg-trimetho prim 160 mg tablet TAKE 1 TABLET BY MOUTH EVERY 12 HOURS FOR 10 DAYS 12/15 completed Not Available Not Available Not Available peg-electro lyte solution 420 gram oral solution 08/06 completed Not Available Not Available Not Available aspirin 81 mg tablet,arias yed release TAKE 1 TABLET BY MOUTH EVERY DAY 2018 active Not Available Not Available Not Avai lable tramadol 50 mg tablet TAKE 1 TABLET BY MOUTH EVERY 8 HOURS 05/20 completed Not Available Not Available Not Available triamcinolo ne acetonide 0.1 % topical cream APPLY A THIN LAYER TO THE AFFECTED AREA(S) BY TOPICAL ROUTE 2 TIMES PER DAY 05/20 completed Not Available Not Available Not Available carvedilol 3.125 mg tablet TAKE 2 TABLET BY MOUTH TWICE A DAY WITH MEALS 12/15 completed Not Available Not Available Not Available ketorolac 10 mg tablet 08/24 completed Not Available Not Available Not Available Questran 4 gram powder for susp in a packet Take 1 packet every day by oral route as needed. 11/26 completed Not Available Not Available Not Available phenazopyri dine 100 mg tablet 10/06 completed Not Available Not Available Not Available baclofen 10 mg tablet Take 1 tablet twice a day by oral route. active Not Available Not Available No t Available benzonatate 100 mg capsule TAKE 1 CAPSULE BY MOUTH THREE TIMES A DAY 11/02 completed Not Available Not Available Not Available cephalexin 500 mg capsule TAKE 1 CAPSULE BY MOUTH 1-2 HOURS PRIOR TO STENT REMOVAL. 08/24 completed Not Available Not Available Not Available pantoprazol e 40 mg tablet,arias yed release TAKE 1 Tablet BY MOUTH DAILY BEFORE BREAKFAST 02/25 completed Not Available Not Available Not Available oseltamivir 75 mg capsule 04/22 completed Not Available Not Available Not Available ferrous sulfate 325 mg (65 mg iron) tablet TAKE ONE TABLET BY MOUTH DAILY 02/25 completed Not Available Not Available Not Available fluorometho lone 0.1 % eye drops,suspe nsion INSTILL ONE DROP INTO THE RIGHT EYE ONCE A DAY 09/07 completed Not Available Not Available Not Available polymyxin B sulfate 10,000 unit-trimet hoprim 1 mg/mL eye drops 12/23 completed Not Available Not Available Not Available nitroglycer in 0.4 mg sublingual tablet PLEASE SEE ATTACHED FOR DETAILED DIRECTION S active Not Available Not Available No t Available omeprazole 20 mg capsule,del ayed release Take 1 capsule every day by oral route in the morning. 10/06 completed Not Available Not Available Not Available aspirin 81 mg chewable tablet 08/06 completed Not Available Not Available Not Available cyanocobala min (vit B-12) 1,[address] 1 tablet every day by sublingua l route for 90 days. 2019 active Not Available Not Available Not Avai lable mupirocin 2 % topical ointment APPLY A SMALL AMOUNT TO AFFECTED AREA 3 TIMES A DAY active Not Available Not Available No t Available ergocalcife rol (vitamin D2) 1,250 mcg (50,000 unit) capsule TAKE ONE CAPSULE BY MOUTH ONCE WEEKLY WITH FLAXSEED OIL 1 GRAM CAPSULE active Not Available Not Available No t Available epinephrine 0.3 mg/0.3 mL injection, auto-inject or 01/24 completed Not Available Not Available Not Available levofloxaci n 750 mg tablet TAKE 1 TABLET BY MOUTH EVERY DAY 12/15 completed Not Available Not Available Not Available methylpredn isolone 4 mg tablets in a dose pack Take 1 dose pk by oral route as directed. 10/25 completed Not Available Not Available Not Available oxybutynin chloride 5 mg tablet 1 tab PO BID 05/20 completed Not Available Not Available Not Available ondansetron 4 mg disintegrat ing tablet TAKE 1 Tablet BY MOUTH EVERY SIX HOURS NEEDED FOR NAUSEA OR FOR VOMITING DIRECTED. PLACE TABLET ON TOP OF THE TONGUE WHERE IT WILL DISSOLVE, THEN SWALLOW DIRECTED. 10/06 completed Not Available Not Available Not Available cefdinir 300 mg capsule TAKE 1 CAPSULE BY MOUTH EVERY 12 HOURS 11/02 completed Not Available Not Available Not Available fluticasone propionate 50 mcg/actuati on nasal spray,suspe nsion [place] 1 spray every day by intranasa l route. 2024 active Not Available Not Available Not Avai lable ipratropium bromide 21 mcg (0.03 %) nasal spray 09/07 completed Not Available Not Available Not Available amoxicillin 875 mg-potassiu m clavulanate 125 mg tablet TAKE 1 TABLET BY MOUTH TWICE A DAY FOR 10 DAYS 11/26 completed Not Available Not Available Not Available Vitamin B-12 1,000 mcg tablet TAKE 1 Tablet BY MOUTH DAILY 10/06 completed Not Available Not Available Not Available Tylenol Extra Strength 500 mg tablet Take 1 tablet every 8 hours by oral route around the clock for 30 days. 2019 active Not Available Not Available Not Avai lable oxycodone 5 mg tablet 05/20 completed Not Available Not Available Not Available olmesartan 20 mg tablet TAKE 1 TABLET EVERY DAY BY ORAL ROUTE IN THE MORNING. active Not Available Not Available No t Available olmesartan 40 mg tablet TAKE 1 TABLET EVERY DAY BY ORAL ROUTE IN THE MORNING. 02/25 completed Not Available Not Available Not Available Pneumovax-2 3 25 mcg/0.5 mL injection syringe 08/06 completed Not Available Not Available Not Available moxifloxaci n 0.5 % eye drops 06/27 completed Not Available Not Available Not Available tadalafil 5 mg tablet TAKE 1 TABLET BY MOUTH EVERY DAY 05/20 completed Not Available Not Available Not Available Mucinex DM 30 mg-600 mg tablet,exte nded release 12 hr Take 1 tablet every 12 hours by oral route. 2024 active Not Available Not Available Not Avai lable Allergy Relief (diphenhydr amine) 25 mg tablet TAKE 1 TABLET (25 MG TOTAL) BY MOUTH EVERY 6 (SIX) HOURS NEEDED FOR ITCHING OR ALLERGIES . OTC 01/24 completed Not Available Not Available Not Available ramelteon 8 mg tablet TAKE 1 Tablet BY MOUTH EVERY NIGHT AT BEDTIME 12/15 completed Not Available Not Available Not Available Mucinex DM 60 mg-1,200 mg tablet,exte nded release 12 hr Take 1 tablet twice a day by oral route. 12/23 completed Not Available Not Available Not Available Adacel (Tdap Adolesn/Pierre lt)(PF)2 Lf-(2.5-5-3 -5)-5 Lf/0.5 mL IM syringe 01/08 completed Not Available Not Available Not Available cyanocobala min (vit B-12) 500 mcg lozenges TAKE 2 TABLETS SUBLINGUA L DAILY 01/24 completed Not Available Not Available Not Available blood pressure test kit-large cuff 05/02 completed Not Available Not Available Not Available Prevnar 13 (PF) 0.5 mL intramuscul ar syringe 08/06 completed Not Available Not Available Not Available Vitamin D3 125 mcg (5,000 unit) tablet Take 1 tablet every day by oral route for 90 days. 2019 active Not Available Not Available Not Avai lable Fluzone High-Dose 2014- (PF) 180 mcg/0.5 mL intramuscul ar syringe 01/08 completed Not Available Not Available Not Available Fluarix Quad 6174-5609 (PF) 60 mcg (15 mcg x 4)/0.5 mL IM syringe 08/06 completed Not Available Not Available Not Available Fluzone High-Dose [id number] (PF) 180 mcg/0.5 mL intramuscul ar syringe 04/22 completed Not Available Not Available Not Available Shingrix (PF) 50 mcg/0.5 mL intramuscul ar suspension, kit 03/28 completed Not Available Not Available Not Available Xarelto 2.5 mg tablet Take 1 tablet twice a day by oral route. 10/06 completed Not Available Not Available Not Available Fluzone High-Dose 2018- (PF) 180 mcg/0.5 mL intramuscul ar syringe 01/16 completed Not Available Not Available Not Available Fluzone High-Dose Quad 2019- (PF) 240 mcg/0.7 mL IM syringe 10/25 completed Not Available Not Available Not Available Flowflex COVID-19 Antigen Home Test kit 11/26 completed Not Available Not Available Not Available Paxlovid 300 mg (150 mg x 2)-100 mg tablets in a dose pack Take 1 dose pk twice a day by oral route as directed. 03/25 completed Not Available Not Available Not Available Vitals Date Recorded Body height Body temperature Respiratory rate Body mass index (BMI) Body weight Heart rate Systolic blood pressure Diastolic blood pressure Provider Name and Address Organization Details Last Updated DateTime 4 177.8 cm 98.9 [degF] 18 /min 27 kg/m2 31190.3 7 g 81 /min 112 mm[Hg] 59 mm[Hg] Juliet [facility] 4 12:52:57 Date Recorded Body height Body temperature Heart rate Respiratory rate Body mass index (BMI) Body weight Systolic blood pressure Diastolic blood pressure Provider Name and Address Organization Details Last Updated DateTime 4 177.8 cm 97.3 [degF] 75 /min 16 /min 27.4 kg/m2 75147.1 4 g 106 mm[Hg] 63 mm[Hg] Juliet [facility] 4 12:15:37 Date Recorded Body height Heart rate Respiratory rate Body temperature Body mass index (BMI) Body weight Systolic blood pressure Diastolic blood pressure Provider Name and Address Organization Details Last Updated DateTime 4 177.8 cm 67 /min 16 /min 98.2 [degF] 28.7 kg/m2 53739.4 7 g 118 mm[Hg] 74 mm[Hg] [facility] 17:26:49 Date Recorded Body height Heart rate Respiratory rate Body temperature Body mass index (BMI) Body weight Systolic blood pressure Diastolic blood pressure Provider Name and Address Organization Details Last Updated DateTime 4 177.8 cm 69 /min 16 /min 97.4 [degF] 29.3 kg/m2 81725.8 4 g 117 mm[Hg] 70 mm[Hg] [facility] 17:22:08 Date Recorded Body height Body mass index (BMI) Body weight Body temperature Respiratory rate Heart rate Systolic blood pressure Diastolic blood pressure Provider Name and Address Organization Details Last Updated DateTime 5 177.8 cm 29.3 kg/m2 61503.8 4 g 97.9 [degF] 16 /min 88 /min 121 mm[Hg] 72 mm[Hg] Juliet Martinez [facility] 5 18:08:05 Social History Question Answer Notes LastModified by Organizat ion Details LastModified Time Tobacco Smoking Status Never Smoker Not Available [facility] 12/08/2019 03:12:12 Do You Have An Advance Directive? No [id number] Information n ot available 12/08/2019 What Is Your Level Of Alcohol Consumption? Occasional [id number] Information not available 12/08/2019 What Is Your Level Of Caffeine Consumption? 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 No [id number] Information n ot available 12/08/2019 In The 14 Days Before Symptom Onset, Have You Had Close Contact With A Person Who Is Under Investigation For COVID-19 While That Person Was Ill? No [id number] Information not available 12/08/2019 Have You Been To An Area Known To Be High Risk For COVID-19? No [id number] Information not available 12/08/2019 Have You Directly Handled Bats, Rodents, Or Primates From Ebola Endemic Areas? No Information not available 04/24/2020 Have You Processed Blood Or Body Fluids From An Ebola Virus Disease Patient Without Appropriate PPE? No Information not available 04/24/2020 Have You Had Household Contact With An Ebola Virus Disease Patient? No Information not available 04/24/2020 Have You Had Direct Contact With A Body In An Ebola-affected Area Without Appropriate PPE? No Information not available 04/24/2020 Have You Had Percutaneous (e.g. Needle Stick) Or Mucous Membrane Exposure To Blood Or Body Fluids From An Ebola Virus Disease Patient? No Information not available 04/24/2020 Have You Had Other Close Contact With An Ebola Virus Disease Patient In Health Care Facilities Or Community Settings? No Information not available 04/24/2020 Do You Reside In Or Have You Traveled To An Area Where Ebola Virus Transmission Is Active? No Information not available 04/24/2020 Are There Any Guns Present In Your Home? No Information not available 04/24/2020 High Number Of Sexual Partners No Information not available 04/24/2020 History Of Inconsistent/no Condom Use No Information not available 04/24/2020 What Was The Date Of Your Most Recent Tobacco Screening? 06/27/2018 [id number] Information not available 12/08/2019 Mother With HIV? No Informat ion not available 04/24/2020 Performs Monthly Self-breast Exam? No Information no t available 04/24/2020 Seat Belts Used Routinely Yes Information not available 04/24/2020 Sexual Partner Has HIV? No Information not available 04/24/2020 Sexual Partner Uses IV Drugs? No Information not available 04/24/2020 Smoke Alarm In Home Yes Information not available 04/24/2020 Do You Use Sunscreen Routinely? No Information not available 04/24/2020 Have You Used IV Drugs? No Information not available 04/24/2020 Sex: Unknown Functional Status Question Answer Note LastModified by Organization D etails LastModified Time Are you able to care for yourself? Yes Information n ot available 04/24/2020 Mental Status None recorded. Family History Relationship Description Onset Age of this Age Resolved Age Notes LastModified by Organization Details LastModified Time Father 83 [email or web address] Not available 10:33:49 Mother 82 [email or web address] Not available 10:33:49 Medical History No medical history recorded. Immunizations Vaccine Type Date Status Note Provider Nam e and Address Organization Details Recorded Time Influenza, split virus, quadrivalent, preservative 8 completed Not Available [facility] 10/18/2022 10:40:08 zoster recombinant 8 completed Not Available [facility] 10/18/2022 10:40:08 zoster recombinant 9 completed Not Available [facility] 10/18/2022 10:40:08 Influenza, split virus, quadrivalent, preservative 9 completed Not Available [facility] 10/18/2022 10:40:08 Influenza, high-dose, quadrivalent, PF 0 completed Not Available [facility] 10/18/2022 10:40:08 SARS-COV-2 (COVID-19) vaccine, UNSPECIFIED 1 completed Not Available [facility] 10/18/2022 10:40:08 SARS-COV-2 (COVID-19) vaccine, UNSPECIFIED 1 completed Not Available [facility] 10/18/2022 10:40:08 Influenza, split virus, quadrivalent, preservative 1 completed Not Available [facility] 10/18/2022 10:40:08 Influenza, high-dose, quadrivalent, PF 1 completed Not Available [facility] 10/18/2022 10:40:08 Influenza, adjuvanted, quadrivalent, PF 2 completed Not Available [facility] 10/18/2022 10:40:08 Influenza, split virus, quadrivalent, preservative 6 completed Not Available [facility] 10/18/2022 10:40:08 Tdap 6 completed Not Available [facility] 10/18/2022 10:40:08 Tdap 6 completed Not Available [facility] 10/18/2022 10:40:08 pneumococcal polysaccharide PPV23 0 completed Not Available [facility] 10/18/2022 10:40:08 Influenza, high-dose, trivalent, PF 4 completed Walter Liz MD [address], [place], [address], [facility] 10/10/2023 14:33:09 Tdap 4 completed Walter Liz MD [address], [place], [address], [facility] 12/20/2023 10:31:06 Respiratory syncytial virus (RSV) MAB, unspecified 4 completed Walter Liz MD [address], [place], [address], [facility] 03/22/2024 18:42:46 Influenza, split virus, quadrivalent, preservative 7 completed Not Available [facility] 10/18/2022 10:40:08 Influenza, split virus, trivalent, preservative 5 completed Not Available [facility] 10/18/2022 10:40:08 Pneumococcal conjugate PCV 13 6 completed Not Available [facility] 10/18/2022 10:40:08 Past Encounters Encounter ID Performer Location Encounter Start Date Encounter Closed Date Diagnosis/Indication Diagnosis SNOMED-CT Code Diagnosis ICD10 Code Diagnosis Note [id number] Francesco Wen MD [facility], [facility] [address] [place] [address] 07/12/2015 10:15:42 07/12/2015 12:08:33 Benign essential hypertension 0770161 I10 -- blood pressure controlled Benign pro static hyperplasia without outflow obstruction 521971518 N40.0 -- with minimal sx. Coronary arteriosclerosis 50527553 I25.10 (Patient was told to continue medical treatment only) -- refer pt to Dr Child for f/u Hyperlipidemia 53717602 E78.5 (LDL on 07/10/15 (was 86 ;controlle d ) Sleep apnea 23142535 G47 .30 -- Patient reports he uses a CPAP machine everyday for at least 6 hours every day. Vitamin D deficiency 347 95756 E55.9 [id number] Francesco [facility], [facility] [address] [place] [address] 01/09/2016 11:52:58 01/09/2016 16:36:42 Benign essential hypertension 0551988 I10 Coronary arteriosclerosis 94030007 I25.10 Hyperlipidemia 22765584 E78.5 (LDL on 07/10/15 (was 86 ;controlle d ) Benign pro static hyperplasia without outflow obstruction 575466216 N40.0 Advance di rective discussed with patient 592127162 Z71.89 Screening for cancer 158 79189 Z12.9 Active or passive immunization 966677839 Z23 -- pt reports he had the 'Shingles shot' at [facility] when it first came out. 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20 Pain in lower limb 47295 006 M79.669 Benign ess ential hypertension 6947333 I10 Vitamin D deficiency 347 84252 E55.9 Coronary arteriosclerosis 82408516 I25.10 Screening for malignant neoplasm of colon 791881959 Z12.11 last C scope 04/03/16 Primary er ectile dysfunction 829985279 N52.9 Hyperlipidemia 22541236 E78.5 Benign pro static hyperplasia without outflow obstruction 346581896 N40.0 [id number] ALDO STATON APN [facility] [address] [place] [address] 04/22/2017 08:57:28 04/22/2017 09:32:59 Influenza-like symptoms 257472658 R68.89 tamiflu prescribed during visitsympt oms improved - Hyperlipidemia 85295279 E78.5 Sleep apnea 52479871 G47 .30 wears CPAP HS Benign ess ential hypertension 7819257 I10 Echocardio gram abnormal 569245739 R93.1 scheduled April . has not gotten labs performed as of yet Congestion of nasal sinus 86829244 R09.81 Prostate s pecific antigen above reference range 046103662 R97.20 4.6 01/2017 - has not followed up with urologist [id number] Walter Liz MD [facility], [facility] [address] [place] [address] 08/06/2017 10:31:24 08/06/2017 11:26:06 Adult health examination 939669814 Z00.01 seen ophth 08/04/17 Benign pro static hyperplasia without outflow obstruction 003963677 N40.0 Prostate s pecific antigen above reference range 783917659 R97.20 Benign ess ential hypertension 4770188 I10 Vitamin D deficiency 347 97106 E55.9 Coronary arteriosclerosis 51524648 I25.10 sees cardiology on reg basis Hyperlipidemia 84221235 E78.5 Sleep apnea 49541233 G47 .30 good compliance Chronic sinusitis 819917 00 J32.9 Screening for malignant neoplasm of colon 285247718 Z12.11 last C scope 04/03/16 Active or passive immunization 161344534 Z23 Bilateral hearing loss 23411062 H91.93 [id number] Walter Liz MD [facility], [facility] [address] [place] [address] 12/23/2017 16:01:12 12/23/2017 17:03:53 Malignant tumor of prostate 565263022 C61 Benign ess ential hypertension 8958882 I10 per pt had optometry eval 08/2017 Vitamin D deficiency 347 52087 E55.9 Coronary arteriosclerosis 86897570 I25.10 sees cardiology on reg basis Hyperlipidemia 05527202 E78.5 Screening for malignant neoplasm of colon 586089019 Z12.11 last C scope 04/03/16 Active or passive immunization 413169886 Z23 [id number] Walter Liz MD [place] [facility] [facility], [facility] [address] [place] [address] 01/25/2018 12:29:21 01/25/2018 13:40:25 Sinusitis 09594021 J32.9 cont' augmentin , flonase , mucinex dmRTC 1 week if not done Malignant tumor of prostate 734829048 C61 F/U with urology [id number] Walter Liz MD [place] [employer] [facility], [facility] [address] [place] [address] 03/28/2018 16:17:02 03/28/2018 17:13:27 Malignant tumor of prostate 152869366 C61 S/P radical prostatect kitty //F/U with urology Erectile d ysfunction following radical prostatectomy 7591649410 51771 N52.31 Benign ess ential hypertension 6667005 I10 BP 2 weeksper pt had optometry eval 08/2017 Coronary arteriosclerosis 80423229 I25.10 sees cardiology on reg basis Hyperlipidemia 35033172 E78.5 [id number] Walter Liz MD [place] [employer] [facility], [facility] [address] [place] [address] 06/27/2018 17:41:07 06/27/2018 20:07:00 Malignant tumor of prostate 213807072 C61 S/P radical prostatect kitty //F/U with urologysee n oncology , starting radiation Benign ess ential hypertension 6342925 I10 BP 2 weeksper pt had optometry eval 08/2017 Vitamin D deficiency 347 46071 E55.9 last level 06/24/18 Coronary arteriosclerosis 94135964 I25.10 sees cardiology on reg basis Hyperlipidemia 21060243 E78.5 Screening for malignant neoplasm of colon 306948624 Z12.11 last C scope 04/03/16 Active or passive immunization 433166272 Z23 up to date [id number] Walter Liz MD [facility], [place] [address] [place] [address] 09/30/2018 11:13:17 09/30/2018 12:09:51 Benign hypertension 34588412 I10 decrease enalapril to 10 , BP 2 weeksper pt had optometry eval 07/2018 Diarrhea 12792276 R19.7 Malignant tumor of prostate 657188366 C61 S/P radical prostatect kitty //F/U with urologysee n oncology , starting radiationh ad hormone shothad DEXA Kidney stone 20179622 N2 0.0 on PET scan Multiple n odules of lung 721303686 R91.[address] chest @ [facility] , will try to get copy Vitamin D deficiency 347 00903 E55.9 last level 06/24/18 Coronary arteriosclerosis 01036828 I25.10 sees cardiology on reg basis Hyperlipidemia 16673179 E78.5 Sleep apnea 64752343 G47 .30 good compliance Screening for malignant neoplasm of colon 564452639 Z12.11 last C scope 04/03/16 [id number] Walter Liz MD [facility], [place] [address] [place] [address] 01/16/2019 17:25:10 01/16/2019 18:03:58 Adult health examination 604776901 Z00.01 seen ophth 07/2018 Benign ess ential hypertension 7625616 I10 BP 2 weeksper pt had optometry eval 08/2017 Benign pro static hyperplasia without outflow obstruction 517967673 N40.0 ended with prostate Ca and proctectom y Body mass index 25-29 - overweight 120285946 Z68.27 Coronary arteriosclerosis 47616708 I25.10 sees cardiology on reg basis Erectile d ysfunction following radical prostatectomy 3180804001 48240 N52.31 Hyperlipidemia 41357896 E78.5 Kidney stone 48574112 N2 0.0 on PET scan Malignant tumor of prostate 871975867 C61 S/P radical prostatect kitty //F/U with urologysee n oncology , starting radiationh ad hormone shothad DEXA Multiple n odules of lung 300710293 R91.[address] chest @ [facility] , will try to get copy Sleep apnea 03400000 G47 .30 good compliance Vitamin D deficiency 347 42600 E55.9 last level 06/24/18 Cholelithi asis without obstruction 11758431 K80.20 asymptomat ic Screening for malignant neoplasm of colon 574721843 Z12.11 last C scope 04/03/16 Active or passive immunization 231620632 Z23 up to date Chronic hiccups 65626977 5 R06.6 [id number] Walter Liz MD [facility], [facility] [address] [place] [address] 04/27/2019 15:36:50 04/27/2019 16:18:13 Benign hypertension 78199646 I10 , BP 2 weeksper pt had optometry eval 07/2018last EKG 09/30/18 Coronary arteriosclerosis 33604693 I25.10 sees cardiology on reg basis Erectile d ysfunction following radical prostatectomy 4833822345 03400 N52.31 Hyperlipidemia 10168842 E78.5 last LDL 01/18/19 Vitamin D deficiency 347 24305 E55.9 last level 12/31/18 Malignant tumor of prostate 028352324 C61 S/P radical prostatect kitty //F/U with urologysee n oncology , starting radiationh ad hormone shothad DEXA Multiple n odules of lung 614585361 R91.[address] chest 01/23/19 , recheck 6 months Screening for malignant neoplasm of colon 239318561 Z12.11 last C scope 04/03/16 Active or passive immunization 235596900 Z23 up to date [id number] Walter Liz MD [facility], [facility] [address] [place] [address] 07/27/2019 15:59:47 07/27/2019 16:38:53 Benign hypertension 55031972 I10 , BP 2 weeksper pt had optometry eval 07/2018last EKG 09/30/18 Body mass index 25-29 - overweight 994662042 Z68.27 lost 7 LBs on diet and exercise Cholelithi asis without obstruction 57525538 K80.20 asymptomat ic Coronary arteriosclerosis 92337586 I25.10 sees cardiology on reg basis Malignant tumor of prostate 933261279 C61 S/P radical prostatect kitty //F/U with urologysee n oncology , starting radiationh ad hormone shothad DEXA Vitamin D deficiency 347 21612 E55.9 last level 12/31/18 Screening for malignant neoplasm of colon 414343941 Z12.11 last C scope 04/03/16 Active or passive immunization 933444861 Z23 up to date Pain in right knee 21050 46027 03336 M25.561 [id number] Walter Liz MD [facility], [facility] [address] [place] [address] 10/26/2019 15:52:01 10/26/2019 16:31:18 Vitamin B12 deficiency (non anemic) 91647644 E53.8 Benign hypertension 1072 5009 I10 , BP 2 weeksper pt had optometry eval 07/2018last EKG 09/30/18 Coronary arteriosclerosis 28687509 I25.10 sees cardiology on reg basis Malignant tumor of prostate 256895426 C61 S/P radical prostatect kitty //F/U with urologysee n oncology , starting radiationh ad hormone shothad DEXA Hyperlipidemia 27814498 E78.5 last LDL 01/18/19 Peripheral vascular disease 676977280 I73.9 arterial calcificat ion on Knee X ray , 07/04/19ABI showed calcified arterydupl ex showed Mild PVA Screening for malignant neoplasm of colon 290662400 Z12.11 last C scope 04/03/16 Active or passive immunization 497310634 Z23 up to date Erectile d ysfunction following radical prostatectomy 4773550209 72042 N52.31 [id number] Walter Liz MD [facility], [facility] [address] [place] [address] 01/25/2020 15:54:57 01/25/2020 16:43:15 Adult health examination 108903224 Z00.01 seen ophth 07/2018 Benign ess ential hypertension 6646943 I10 BP 2 weeksper pt had optometry eval 01/17/20la st EKG 09/30/18 Benign pro static hyperplasia without outflow obstruction 040340380 N40.0 ended with prostate Ca and proctectom y Body mass index 25-29 - overweight 632376904 Z68.27 educationo n diet and exercise Cholelithi asis without obstruction 86776477 K80.20 asymptomat ic Chronic sinusitis 398127 00 J32.9 stable Coronary arteriosclerosis 79413678 I25.10 sees cardiology on reg basis Erectile d ysfunction following radical prostatectomy 7877494389 65913 N52.31 on tadalafil 5 mg Hyperlipidemia 01224710 E78.5 last LDL 12/16/19 Kidney stone 39744119 N2 0.0 on PET scan Malignant tumor of prostate 521321889 C61 S/P radical prostatect kitty //F/U with urologysee n oncology , starting radiationh ad hormone shothad DEXA 12/20/19la st PSA 10/11/19 Multiple n odules of lung 874996355 R91.[address] chest 01/23/19 , recheck Peripheral vascular disease 682351657 I73.9 arterial calcificat ion on Knee X ray , 07/04/19ABI showed calcified arterydupl ex showed Mild PVA 09/04/19 Sleep apnea 47319068 G47 .30 good compliance Vitamin B1 2 deficiency (non anemic) 32367957 E53.8 last level 10/24/19 Vitamin D deficiency 347 18378 E55.9 last level 10/11/19 Screening for malignant neoplasm of colon 132168019 Z12.11 last C scope 04/03/16 , recheck 5 years Active or passive immunization 244193836 Z23 up to date Osteoarthr itis of knee 989014227 M17.9 stable [id number] Walter Liz MD [facility] [address] [place] [address] 04/24/2020 16:03:34 04/24/2020 16:41:23 Benign essential hypertension 2046939 I10 BP 2 weeksper pt had optometry eval 01/17/20la st EKG 12/27/19 Benign pro static hyperplasia without outflow obstruction 490165387 N40.0 ended with prostate Ca and proctectom y Body mass index 25-29 - overweight 945774007 Z68.27 educationo n diet and exercise Cholelithi asis without obstruction 04147162 K80.20 asymptomat ic Chronic sinusitis 764626 00 J32.9 stable Coronary arteriosclerosis 19637826 I25.10 sees cardiology on reg basis Erectile d ysfunction following radical prostatectomy 7554385302 95602 N52.31 on tadalafil 5 mg Hyperlipidemia 14768476 E78.5 last LDL 12/16/19 Kidney stone 24591005 N2 0.0 last KUB 02/14/20 Malignant tumor of prostate 469157269 C61 S/P radical prostatect kitty //F/U with urologysee n oncology , starting radiationh ad hormone shothad DEXA 12/20/19la st PSA 10/11/19 Multiple n odules of lung 558577049 R91.[address] chest 02/14/20 Peripheral vascular disease 170463766 I73.9 arterial calcificat ion on Knee X ray , 07/04/19ABI showed calcified arterydupl ex showed Mild PVA 09/04/19 Sleep apnea 44960093 G47 .30 good compliance Vitamin B1 2 deficiency (non anemic) 21764552 E53.8 last level 01/31/20 Osteoarthr itis of knee 109523136 M17.9 stable Vitamin D deficiency 347 60041 E55.9 last level 10/11/19 Screening for malignant neoplasm of colon 133929624 Z12.11 last C scope 04/03/16 , recheck 5 years Active or passive immunization 090328719 Z23 up to date Hiatal hernia 56303023 K 44.9 education Inguinal hernia 43237311 0 K40.90 Lt , asymptomat ic , education [id number] Walter Liz MD [facility], [facility] [address] [place] [address] 07/29/2020 16:01:07 07/29/2020 16:46:20 Hyperlipidemia 26838270 E78.5 last LDL 12/16/19 Coronary arteriosclerosis 99023558 I25.10 sees cardiology on reg basis Body mass index 25-29 - overweight 019336901 Z68.27 education on diet and exercise Benign ess ential hypertension 3360530 I10 BP 2 weeksper pt had optometry eval 01/17/20la st EKG 12/27/19 Kidney stone 08314053 N2 0.0 last KUB 02/14/20 Malignant tumor of prostate 829225477 C61 S/P radical prostatect kitty //F/U with urology seen oncology , starting radiation had hormone shot had DEXA 12/20/19 last PSA 04/23/20 Osteoarthr itis of knee 634267715 M17.9 stable Peripheral vascular disease 385600862 I73.9 arterial calcificat ion on Knee X ray , 07/04/19ABI showed calcified arterydupl ex showed Mild PVA 09/04/19 Sleep apnea 88255178 G47 .30 good compliance Vitamin B1 2 deficiency (non anemic) 12071070 E53.8 last level 01/31/20 Vitamin D deficiency 347 01730 E55.9 last level 10/11/19 Anemia 570591448 D64.9 Screening for malignant neoplasm of colon 288131535 Z12.11 last C scope 04/03/16 , recheck 5 years Active or passive immunization 285869546 Z23 up to date Cardiomegaly 2479930 I51 .7 on CXR 07/10/20 Urinary incontinence 165 348327 R32 Pruritic rash 31813795 L 28.2 [id number] Walter Liz MD [facility] [address] [place] [address] 10/29/2020 16:46:15 10/29/2020 17:15:22 Benign essential hypertension 9332585 I10 BP 2 weeksper pt had optometry eval 01/17/20la st EKG 12/27/19 Body mass index 25-29 - overweight 176910169 Z68.27 education on diet and exercise Coronary arteriosclerosis 51877212 I25.10 sees cardiology on reg basis Hyperlipidemia 80797580 E78.5 last LDL 12/16/19 Kidney stone 73510717 N2 0.0 last KUB 02/14/20 Malignant tumor of prostate 533139116 C61 S/P radical prostatect kitty //F/U with urology seen oncology , starting radiation had hormone shot had DEXA 12/20/19 last PSA 04/23/20 Multiple n odules of lung 833355684 R91.[address] chest 02/14/20 , recheck 1 year Osteopenia 910969768 M85 .80 last DEXA 10/28/20 Peripheral vascular disease 595549299 I73.9 arterial calcificat ion on Knee X ray , 07/04/19ABI showed calcified arterydupl ex showed Mild PVA 09/04/[address] imulating hormone level above reference range 400371122 R79.89 check FT4,FT3 Sleep apnea 42103831 G47 .30 good compliance Vitamin B1 2 deficiency (non anemic) 41299582 E53.8 last level 10/26/20 Vitamin D deficiency 347 20889 E55.9 last level 10/26/20 Inguinal hernia 34278615 0 K40.90 Lt , asymptomat ic , education Hiatal hernia 66674223 K 44.9 education Erectile d ysfunction following radical prostatectomy 0477311160 90777 N52.31 on tadalafil 5 mg Cholelithi asis without obstruction 77243849 K80.20 asymptomat ic Screening for malignant neoplasm of colon 796366944 Z12.11 last C scope 04/03/16 , recheck 5 years Active or passive immunization 248724056 Z23 up to date Walter Liz MD [facility], [facility] [address] [place] [address] 02/03/2021 15:04:08 02/03/2021 15:51:52 Adult health examination 706055755 Z00.01 seen ophth 07/2018 Benign ess ential hypertension 8734461 I10 BP 2 weeksper pt had optometry eval 01/17/20la st EKG 12/27/19 Body mass index 25-29 - overweight 536012348 Z68.27 education on diet and exercise Cholelithi asis without obstruction 19720738 K80.20 asymptomat ic Chronic sinusitis 460370 00 J32.9 stable Coronary arteriosclerosis 67207524 I25.10 sees cardiology on reg basis Diverticul osis of colon 591384681 K57.30 asymptomat ic Erectile d ysfunction following radical prostatectomy 8764818163 10152 N52.31 on tadalafil 5 mg Hiatal hernia 60838396 K 44.9 education Hyperlipidemia 48275406 E78.5 last LDL 12/16/19 Inguinal hernia 43365322 0 K40.90 Lt , asymptomat ic , education Kidney stone 48185333 N2 0.0 last KUB 02/14/20 Malignant tumor of prostate 384089241 C61 S/P radical prostatect kitty //F/U with urology seen oncology , starting radiation had hormone shot had DEXA 12/20/19 last PSA 04/23/20 Multiple n odules of lung 769799758 R91.[address] chest 02/14/20 , recheck 1 year Osteoarthr itis of knee 855011732 M17.9 stable Osteopenia 652710135 M85 .80 last DEXA 12/20/19 Peripheral vascular disease 844424422 I73.9 arterial calcificat ion on Knee X ray , 07/04/19ABI showed calcified arterydupl ex showed PVA 12/27/20 Sleep apnea 33878176 G47 .30 good compliance Vitamin B1 2 deficiency (non anemic) 80871178 E53.8 last level 10/26/20 Vitamin D deficiency 347 95802 E55.9 last level 10/26/20 Screening for malignant neoplasm of colon 871316003 Z12.11 last C scope 04/03/16 , recheck 5 years Active or passive immunization 402184802 Z23 up to date Congestion of nasal sinus 43484701 R09.81 [id number] Walter Liz MD [facility], [facility] [address] [place] [address] 06/26/2021 13:36:38 06/26/2021 14:27:26 Congestion of nasal sinus 87592268 R09.81 Benign ess ential hypertension 7731172 I10 BP 2 weeksper pt had optometry eval 02/2021last EKG 02/04/21 Long-term drug therapy 506060161 Z79.899 statin Impacted c erumen of bilateral ears 5615114907 077560 H61.23 Screening for malignant neoplasm of colon 678124408 Z12.11 last C scope 04/03/16 , recheck 5 years Active or passive immunization 968590237 Z23 up to date History of SARS-CoV-2 29 60744947 05929201 Z86.16 02/2021 [id number] Walter Liz MD [facility], [facility] [address] [place] [address] 10/30/2021 16:02:42 10/30/2021 18:01:20 Kidney stone 51517615 N20.0 last KUB 02/14/20 Anemia 502738467 D64.9 stable Benign ess ential hypertension 6334645 I10 BP 2 weeksper pt had optometry eval 02/2021last EKG 02/04/21 Long-term drug therapy 335523199 Z79.899 statin History of SARS-CoV-2 29 88919949 67418326 Z86.16 02/2021 Screening for malignant neoplasm of colon 774088161 Z12.11 last C scope 04/03/16 , recheck 5 years Active or passive immunization 863663000 Z23 up to date [id number] Walter Liz MD [facility], [facility] [address] [place] [address] 11/26/2021 08:59:40 11/26/2021 09:50:53 Palpitations 24522074 R00.2 decreased caffeine Polyuria 49454487 R35.89 Multiple n odules of lung 026056299 R91.[address] chest 02/14/20 , recheck 1 year Peripheral vascular disease 200981376 I73.9 arterial calcificat ion on Knee X ray , 07/04/19ABI showed calcified arterydupl ex showed PVD 12/27/20 Active or passive immunization 703190751 Z23 up to date [id number] Walter Liz MD [facility], [facility] [address] [place] [address] 02/03/2022 09:00:22 02/03/2022 09:47:52 Adult health examination 235475370 Z00.01 seen ophth 02/2021 Benign ess ential hypertension 4200207 I10 BP 2 weeksper pt had optometry eval 02/2021last EKG 02/04/21ed ucation about anticoagul ation safety Body mass index 25-29 - overweight 459263428 Z68.27 education on diet and exercise Cholelithi asis without obstruction 78087239 K80.20 asymptomat ic Chronic sinusitis 714338 00 J32.9 stable Coronary arteriosclerosis 60706884 I25.10 sees cardiology on reg basis Diverticul osis of colon 099070967 K57.30 asymptomat ic History of SARS-CoV-2 29 12273650 57515821 Z86.16 02/2021 Hyperlipidemia 40463882 E78.5 last LDL 12/16/19 Inguinal hernia 05820059 0 K40.90 Lt , asymptomat ic , education Kidney stone 64135060 N2 0.0 last KUB 01/13/22 Long-term drug therapy 128473086 Z79.899 statin , last A1c 10/25/21 Malignant tumor of prostate 604521084 C61 S/P radical prostatect kitty //F/U with urology seen oncology , starting radiation had hormone shot had DEXA 12/20/19 last PSA 02/13/21 Multiple n odules of lung 101128740 R91.[address] chest 02/14/20 ,with H/O prostate CArecheck Osteoarthr itis of knee 276464060 M17.9 stable Peripheral vascular disease 696573504 I73.9 arterial calcificat ion on Knee X ray , 07/04/19ABI showed calcified arterydupl ex showed PVD 12/27/20 Osteopenia 654873987 M85 .80 last DEXA 01/2021 per pt Sleep apnea 36192534 G47 .30 good compliance Vitamin B1 2 deficiency (non anemic) 46128263 E53.8 last level 05/23/21 Vitamin D deficiency 347 69534 E55.9 last level 10/26/20 [id number] Walter Liz MD [facility] [address] [place] [address] 05/20/2022 14:58:43 05/20/2022 15:46:02 Benign hypertension 75333715 I10 , BP 2 weeksper pt had optometry eval 03/2022last EKG 11/26/21 Body mass index 25-29 - overweight 406870636 Z68.27 education on diet and exercise Coronary arteriosclerosis 10117705 I25.10 sees cardiology on reg basis Hyperlipidemia 20304908 E78.5 last LDL 03/06/22 Kidney stone 17633406 N2 0.0 last KUB 01/13/22 Long-term drug therapy 729638504 Z79.899 statin , last A1c 10/25/21 Multiple n odules of lung 991243195 R91.[address] chest 03/18/22wit h H/O prostate CArecheck Vitamin B1 2 deficiency (non anemic) 26935513 E53.8 last level 03/06/22 Screening for malignant neoplasm of colon 395821450 Z12.11 last C scope 04/03/16 , recheck 5 years Active or passive immunization 554925854 Z23 up to date Congestion of nasal sinus 02573300 R09.81 [id number] Walter Liz MD [facility], [facility] [address] [place] [address] 08/24/2022 14:55:17 08/24/2022 15:55:00 Mixed hyperlipidemia 329927472 E78.2 Body mass index 25-29 - overweight 915039219 Z68.27 education on diet and exercise Coronary arteriosclerosis 10923943 I25.10 sees cardiology on reg basis Kidney stone 90712341 N2 0.0 last KUB 01/13/22 Malignant tumor of prostate 927982408 C61 S/P radical prostatect kitty //F/U with urology seen oncology , starting radiation had hormone shot had DEXA 03/31/22 last PSA 02/13/21 Benign hypertension 1072 5009 I10 , BP 2 weeksper pt had optometry eval 03/2022last EKG 11/26/21 Dyspnea 140222660 R06.00 Right uppe r quadrant pain 190308737 R10.11 Peripheral vascular disease 197633861 I73.9 arterial calcificat ion on Knee X ray , 07/04/19ABI showed calcified arterydupl ex showed PVD 12/27/20 Screening for malignant neoplasm of colon 815802655 Z12.11 last C scope 04/03/16 , recheck 5 years Active or passive immunization 888167241 Z23 up to date [id number] Walter Liz MD [facility], [facility] [address] [place] [address] 10/06/2022 13:48:16 10/06/2022 15:16:56 Pneumonia 113580084 J18.9 O2 is 98% on RA Coronary arteriosclerosis 38503283 I25.10 sees cardiology on reg basishad a RCA stent with perforatio n , ended up with Open heart surgery to fix that RCA Cardiac tamponade 045894 03 I31.4 S/P surgery 10/02/22 Benign ess ential hypertension 5751891 I10 BP 2 weeksper pt had optometry eval 02/2021last EKG 02/04/21ed ucation about anticoagul ation safety Body mass index 25-29 - overweight 693384651 Z68.27 educationl ost 20 LBs after hospitaliz ation Hyperlipidemia 74332733 E78.5 last LDL 03/06/22 [id number] Walter Liz MD [facility], [facility] [address] [place] [address] 11/23/2022 11:36:07 11/23/2022 13:23:11 Urinary tract infectious disease 11476951 N39.0 increase fluids , do renal US Anemia 508982461 D64.9 stable Benign hypertension 1072 5009 I10 , BP 2 weeksper pt had optometry eval 03/2022last EKG 11/26/21 Body mass index 25-29 - overweight 003805028 Z68.27 educationl ost 20 LBs after hospitaliz ation Hyperlipidemia 05409703 E78.5 last LDL 03/06/22 Malignant tumor of prostate 043814417 C61 S/P radical prostatect kitty //F/U with urology seen oncology , starting radiation had hormone shot had DEXA 03/31/22 last PSA 02/13/21 Screening for malignant neoplasm of colon 947730830 Z12.11 last C scope 04/03/16 , recheck 5 yearshas recent stent , need 1 year of plavix Active or passive immunization 065981788 Z23 up to date [id number] Walter Liz MD [facility], [facility] [address] [place] [address] 12/15/2022 12:25:49 12/15/2022 13:00:59 Hospital inpatient stay within past 30 days 4817861992 106 Z76.89 went to [facility] for lower abd pain , CT showed Rt hydronephr osis , labs showed UTI, sepsis , anemia and hypokalemi aInpt till 12/07/22 , better now Sepsis due to urinary tract infection 029331796 N39.0 resolved Hydronephrosis 32053878 N13.30 Rt , had stentF/U with urology Anemia 816282926 D64.9 stable Hypokalemia 27702761 E87 .6 [id number] Walter Liz MD [facility] [address] [place] [address] 02/25/2023 12:19:05 02/25/2023 13:44:50 Adult health examination 881111205 Z00.01 seen ophth 02/2021 Benign ess ential hypertension 0713722 I10 decrease olmesatan to 20BP 2 weeksper pt had optometry eval 02/2021last EKG 02/04/21ed ucation about anticoagul ation safety Body mass index 25-29 - overweight 935099713 Z68.27 education Cholelithi asis without obstruction 80929321 K80.20 asymptomat ic Coronary arteriosclerosis 52474926 I25.10 sees cardiology on reg basishad a RCA stent with perforatio n , ended up with Open heart surgery to fix that RCA Diverticul osis of colon 317563486 K57.30 asymptomat ic History of polyp of colon 745441347 Z86.010 last C scope 03/2016 History of SARS-CoV-2 29 47249502 12761079 Z86.16 02/2021 Hyperlipidemia 61219244 E78.5 last LDL 03/06/22 Inguinal hernia 01612892 0 K40.90 Lt , asymptomat ic , education Kidney stone 05994456 N2 0.0 last KUB 01/13/22la st CT 12/03/22se en urology Long-term drug therapy 421950051 Z79.899 statin , last A1c 10/25/21 Malignant tumor of prostate 431628139 C61 S/P radical prostatect kitty //F/U with urology seen oncology , starting radiation had hormone shot had DEXA 03/31/22 last PSA 02/13/21 Multiple n odules of lung 251583660 R91.[address] chest 03/18/22wit h H/O prostate CArecheck Osteoarthr itis of knee 681330575 M17.9 stable Peripheral vascular disease 374402100 I73.9 arterial calcificat ion on Knee X ray , 07/04/19ABI 08/27/22 was NLduplex showed PVD 12/27/20 Sleep apnea 80003692 G47 .30 good compliance Vitamin B1 2 deficiency (non anemic) 62952557 E53.8 last level 03/06/[address] imulating hormone level above reference range 731401294 R79.89 check FT4,FT3 Vitamin D deficiency 347 87877 E55.9 last level 10/26/20 Anemia 651687654 D64.9 stable Pain of ri ght shoulder joint 9835935735 9735224 M25.511 Low back pain 071685189 M54.50 Screening for malignant neoplasm of colon 244873377 Z12.11 last C scope 04/03/16 , recheck 5 yearshas recent stent , need 1 year of plavix Active or passive immunization 341080884 Z23 up to date Advance di rective discussed with patient 649293047 Z71.89 education Bilateral hearing loss 38512087 H91.93 [id number] Walter Liz MD [facility], [facility] [address] [place] [address] 05/27/2023 12:08:50 05/27/2023 12:44:57 Benign hypertension 14611961 I10 , BP 2 weeksper pt had optometry eval 03/2022last EKG 11/26/21 Body mass index 25-29 - overweight 741718677 Z68.27 education Coronary arteriosclerosis 97286444 I25.10 sees cardiology on reg basishad a RCA stent with perforatio n , ended up with Open heart surgery to fix that RCA Hyperlipidemia 71267682 E78.5 last LDL 03/06/22 Kidney stone 53588768 N2 0.0 last KUB 01/13/22la st CT 12/03/22se en urology Long-term drug therapy 924839620 Z79.899 statin , last A1c 03/27/23 Malignant tumor of prostate 336186030 C61 S/P radical prostatect kitty //F/U with urology seen oncology , starting radiation had hormone shot had DEXA 03/31/22 last PSA 02/13/21 Multiple n odules of lung 905270346 R91.[address] chest 03/18/22wit h H/O prostate CArecheck Peripheral vascular disease 716311554 I73.9 arterial calcificat ion on Knee X ray , 07/04/19ABI 08/27/22 was NLduplex showed PVD 12/27/20 Sleep apnea 87364457 G47 .[address] imulating hormone level above reference range 321268157 R79.89 check FT4,FT3 Vitamin B1 2 deficiency (non anemic) 64397027 E53.8 last level 03/27/23 Vitamin D deficiency 347 88875 E55.9 last level 03/27/23 Screening for malignant neoplasm of colon 483751078 Z12.11 last C scope 04/03/16 , recheck 5 yearshas recent stent , need 1 year of plavix Active or passive immunization 013137273 Z23 up to date [id number] Walter Liz MD [facility], [facility] [address] [place] [address] 09/08/2023 17:08:19 09/08/2023 17:51:34 Benign essential hypertension 1777756 I10 fair controlBP 2 weeksper pt had optometry eval 08/09/23las t EKG 07/2023 @ cardiology education about anticoagul ation safety Body mass index 25-29 - overweight 041773830 Z68.27 education Anemia 497004092 D64.9 stable Carotid atherosclerosis 877187203 I65.29 on C spine X ray 04/02/2023 Coronary arteriosclerosis 61079395 I25.10 sees cardiology on reg basishad a RCA stent with perforatio n , ended up with Open heart surgery to fix that RCAanticoa gulation safety education Hyperlipidemia 05132274 E78.5 last LDL 03/06/22 Screening for malignant neoplasm of colon 445492878 Z12.11 last C scope 04/03/16 , recheck 5 yearshas recent stent , need [address] Thyroid [address] imulating hormone level above reference range 316804844 R79.89 check FT4,FT3 Active or passive immunization 436074988 Z23 up to date Presbycusis 30075437 H91 .13 has hearing aids [id number] Walter Liz MD [facility], [facility] [address] [place] [address] 12/15/2023 17:04:56 12/15/2023 18:05:24 Infection of skin 639246200 L08.9 superficia l wound Rt knee Benign hypertension 1072 5009 I10 , BP 2 weeksper pt had optometry eval 03/2022last EKG 11/26/21 Body mass index 25-29 - overweight 913462280 Z68.27 education Coronary arteriosclerosis 38304233 I25.10 sees cardiology on reg basishad a RCA stent with perforatio n , ended up with Open heart surgery to fix that RCAanticoa gulation safety education Hyperlipidemia 84018894 E78.5 last LDL 08/12/23 Kidney stone 22650883 N2 0.0 last KUB 01/13/22la st CT 12/03/22se en urology Malignant tumor of prostate 974811841 C61 S/P radical prostatect kitty //F/U with urology seen oncology , starting radiation had hormone shot had DEXA 03/31/22 last PSA 05/28/23 Multiple n odules of lung 721577027 R91.[address] chest 03/18/22wit h H/O prostate CArecheck Peripheral vascular disease 082065474 I73.9 arterial calcificat ion on Knee X ray , 07/04/19ABI 08/27/22 was NLduplex showed PVD 12/27/20 Long-term drug therapy 789717147 Z79.899 statin , last A1c 03/27/23 Screening for malignant neoplasm of colon 793490451 Z12.11 last C scope 04/03/16 , recheck 5 yearshas recent stent , need 1 year of plavix Active or passive immunization 698906327 Z23 up to date [id number] Walter Liz MD [facility] [address] [place] [address] 03/22/2024 17:28:26 03/22/2024 18:51:57 Adult health examination 297997660 Z00.01 seen ophth 02/2021 Benign hypertension 1072 5009 I10 , BP 2 weeksper pt had optometry eval 03/2022last EKG 02/25/23 Body mass index 25-29 - overweight 443882731 Z68.27 education Carotid atherosclerosis 228178099 I65.29 on C spine X ray 04/02/2023 ,last US 05/06/23 Cholelithi asis without obstruction 43091392 K80.20 asymptomat ic Chronic sinusitis 775856 00 J32.9 stable Coronary arteriosclerosis 56833126 I25.10 sees cardiology on reg basishad a RCA stent with perforatio n , ended up with Open heart surgery to fix that RCAanticoa gulation safety education Diverticul osis of colon 420173950 K57.30 asymptomat ic History of polyp of colon 353273952 Z86.0100 History of SARS-CoV-2 29 95953718 99463208 Z86.16 02/2021 Hyperlipidemia 26957755 E78.5 last LDL 08/12/23 Inguinal hernia 26373902 0 K40.90 Lt , asymptomat ic , education Kidney stone 44731987 N2 0.0 last KUB 01/13/22la st CT 12/03/22se en urology Long-term drug therapy 355677054 Z79.899 statin , last A1c 03/27/23 Malignant tumor of prostate 968107502 C61 S/P radical prostatect kitty //F/U with urology seen oncology , starting radiation had hormone shot had DEXA 03/31/22 last PSA 05/28/23 Multiple n odules of lung 818353112 R91.[address] chest 03/18/22wit h H/O prostate CArecheck Osteoarthr itis of knee 764311031 M17.9 stable Peripheral vascular disease 824997540 I73.9 arterial calcificat ion on Knee X ray , 07/04/19ABI 08/27/22 was NLduplex showed PVD 12/27/20 Presbycusis 69546758 H91 .13 has hearing aids Sleep apnea 24528927 G47 .[address] imulating hormone level above reference range 065564285 R79.89 check FT4,FT3 Vitamin B1 2 deficiency (non anemic) 44950527 E53.8 last level 03/27/23 Vitamin D deficiency 347 80900 E55.9 last level 03/27/23 Screening for malignant neoplasm of colon 892401668 Z12.11 last C scope 04/03/16 , recheck 5 yearshas recent stent , need 1 year of plavix Active or passive immunization 925645573 Z23 up to date Advance di rective discussed with patient 824677824 Z71.89 education Neck pain 90635792 M54.2 Health Concerns Section Related Observation LastModified by Organization Detai ls LastModified Time None Recorded Concern Status LastModified by Organization Details LastModified Time None Recorded Advance Directives Directive N: Payers Encounter Date Sequence Insurance Name Policy Number Policy Farooq Covered Member ID Farooq Member ID Guarantor Name 02/25/2023 2 [place] 33A Dereje Díazbs [id number] Dereje Pa Aparicio 05/27/2023 2 [place] 33A Dereje Pa Aparicio [id number] Dereje Pa Aparicio 09/08/2023 2 [place] 33A Dereje Díazbs [id number] Dereje Pa Aparicio 12/15/2023 2 [place] 33A Dereje Thierno Aparicio [id number] Dereje Díazbs 03/22/2024 1 [place] Dereje Aparicio [id number] Dereje Aparicio 03/22/2024 2 [place] 33A Dereje Aparicio [id number] Dereje Aparicio Notes Date Note Type Note Provider Name and Address Organization Details Recorded Time 02/25/2023 text/html Hypertension F/UReported bypatient.Medications: taking medications as directed; no side effects from medication Lifestyle:regular exercise; limiting/avoiding salt; compliant with low salt diet Associated Symptoms:no dizziness; no lightheadedness; no chest pain; no shortness of breath; no palpitations; no edema; no calf pain with exertion; no headacheMedicare Annual Wellness VisitReported bypatient.Diet and Nutrition:healthy diet Fracture Risk:no history of fractures; no recent explained fracture; no sudden unexplained fractures; no previous musculoskeletal injuries Physical Activity:exercises on a regular basis; recent increase in physical activity; good physical condition; discussed exercise habits Depression Risk:never feels sad, empty, or tearful; no loss of interest in activities; no significant changes in weight; no sleep disturbances or insomnia; no agitation; no loss of energy; no feelings of worthlessness or guilt; no thoughts of suicide; no history of depression; no history of mood disorders Orientation:no disorientation to time; no disorientation to date; no disorientation to place Concentration and Memory:no decreased concentrating ability; no memory lapses or loss; does not forget words Speech/Motor difficulties:no speech difficulties; no difficulty expressing formulated concepts; no difficulty with fine manipulative tasks; no difficulty writing/copying; no slowed reaction time; does not knock things over when trying to pick them up Hearing:loss of hearing: in both ears Vision:no vision problems Activities of Daily Living:able to bathe with limited or no assistance; able to contol urination and bowels; able to dress with limited or no assistance; able to feed self with limited or no assistance; able to get out of chair or bed with limited or no assistance; able to groom with limited or no assistance; able to toilet with limited or no assistance Instrumental Activities of Daily Living:able to do house work with limited or no assistance; able to grocery shop with limited or no assistance; able to manage medications with limited or no assistance; able to manage money with limited or no assistance; able to prepare meals with limited or no assistance; able to use the phone with limited or no assistance Falls Risk Assessment:no frequent falls while walking; no fall in the past year; no fall since last visit; no dizziness/vertigo Home Safety:use of seatbelts; no vision or hearing loss while driving Walter Liz MD [address], [address], [facility] 02/25/2023 13:31:19 05/27/2023 text/html Hypertension F/UReported bypatient.Medications: taking medications as directed; no side effects from medication Lifestyle:regular exercise; limiting/avoiding salt; compliant with low salt diet Associated Symptoms:no dizziness; no lightheadedness; no chest pain; no shortness of breath; no palpitations; no edema; no calf pain with exertion; no headache Walter Liz MD [address] [facility] [address], [place], [address], [facility] 05/27/2023 12:39:33 09/08/2023 text/html Hypertension F/UReported bypatient.Medications: taking medications as directed; no side effects from medication Lifestyle:regular exercise; limiting/avoiding salt; compliant with low salt diet Associated Symptoms:no dizziness; no lightheadedness; no chest pain; no shortness of breath; no palpitations; no edema; no calf pain with exertion; no headacheMedicare Annual Wellness VisitReported bypatient.Falls Risk Assessment:no frequent falls while walking; no fall in the past year; no fall since last visit; no dizziness/vertigo Walter Liz MD [address] [facility] [address], [place], [address], [facility] 09/08/2023 17:41:59 12/15/2023 text/html Hypertension F/UReported bypatient.Medications: taking medications as directed; no side effects from medication Lifestyle:regular exercise; limiting/avoiding salt; compliant with low salt diet Associated Symptoms:no dizziness; no lightheadedness; no chest pain; no shortness of breath; no palpitations; no edema; no calf pain with exertion; no headache had a fall , tripped on something , had superficial Rt knee wound Walter Liz MD [address] [facility] [address], [place], [address], [facility] 12/15/2023 18:01:53 03/22/2024 text/html Hypertension F/UReported bypatient.Medications: taking medications as directed; no side effects from medication Lifestyle:regular exercise; limiting/avoiding salt; compliant with low salt diet Associated Symptoms:no dizziness; no lightheadedness; no chest pain; no shortness of breath; no palpitations; no edema; no calf pain with exertion; no headacheMedicare Annual Wellness VisitReported bypatient.Diet and Nutrition:healthy diet Fracture Risk:no history of fractures; no recent explained fracture; no sudden unexplained fractures; no previous musculoskeletal injuries Physical Activity:exercises on a regular basis (walking); recent increase in physical activity; good physical condition; discussed exercise habits Depression Risk:never feels sad, empty, or tearful; no loss of interest in activities; no significant changes in weight; no sleep disturbances or insomnia; no agitation; no loss of energy; no feelings of worthlessness or guilt; no thoughts of suicide; no history of depression; no history of mood disorders Orientation:no disorientation to time; no disorientation to date; no disorientation to place Concentration and Memory:no decreased concentrating ability; no memory lapses or loss; does not forget words Speech/Motor difficulties:no speech difficulties; no difficulty expressing formulated concepts; no difficulty with fine manipulative tasks; no difficulty writing/copying; no slowed reaction time; does not knock things over when trying to pick them up Hearing:no loss of hearing; wears hearing aids Vision:no vision problems Activities of Daily Living:able to bathe with limited or no assistance; able to contol urination and bowels; able to dress with limited or no assistance; able to feed self with limited or no assistance; able to get out of chair or bed with limited or no assistance; able to groom with limited or no assistance; able to toilet with limited or no assistance Instrumental Activities of Daily Living:able to do house work with limited or no assistance; able to grocery shop with limited or no assistance; able to manage medications with limited or no assistance; able to manage money with limited or no assistance; able to prepare meals with limited or no assistance; able to use the phone with limited or no assistance Falls Risk Assessment:no frequent falls while walking; no fall in the past year; no fall since last visit; no dizziness/vertigo Home Safety:use of seatbelts; no vision or hearing loss while driving Walter Liz MD [address] [place] [address], [place], [address], [facility] 03/22/2024 18:47:47
--- OUTSIDE RECORDS SUMMARY | 2024-06-05 00:39 | XMS_ITS | Encounter Summary ---
Author Organization [facility] Address [address] [place] [address] Phone Care Team Providers Care Roller Pneumatic Name Role Phone Walter Marrero MD Primary Care Provider Dereje Culver MD Unavailable [phone] Phill Richard MD Unavailable Kobi De La Paz MD Unavailable Naresh Collier MD Unavailable [phone] Kobi De La Paz MD Unavailable Irma Pierce NP Unavailable Nahed Hdez MD Unavailable [phone] Tim Aburto MD Unavailable [phone] Miscellaneous, Not In File Unavailable Unava ilable Encounter Details Date Type Department Care Team (Latest Contact Info) Description 1945 Orders Only [facility] Scanning, Provider Social History Tobacco Use Types Packs/Day Years Used Date Smoking Tobacco: Never Assessed Sex and Gender Information Value Date Recorded Sex Assigned at Not on file 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 Gender Identity Not on file Sexual Orientation Not on file documented as of this encounter Plan of Treatment Not on file documented as of this encounter Procedures Procedure Name Priority Date/Time Associated Diagnosis Comments SCAN - RADIOLOGY/IMAGING 1945 documented in this encounter Results * SCAN - RADIOLOGY/IMAGING (1945) Anatomical Region Laterality Modality Other Provider Scanning Final Result documented in this encounter Visit Diagnoses Not on filedocumented in this encounter Care Teams Roller Pneumatic Relationship Specialty Start Date End Date Walter Marrero MD [address] [place] [address] PCP - General 04/02/17 Dereje Culver MD [address] [place] [address] Consulting Physician Urology 05/04/18 Phill Richard MD [address] [place] [address] Referring Physician Urology 05/04/18 Kobi De La Paz MD [address] [place] [address] Consulting Physician Radiation Oncology 05/04/18 Naresh Collier MD [address] [place] [address] Medical Oncologist/Tool Designer Medical Oncology 05/04/18 Kobi De La Paz MD [address] [place] [address] Radiation Oncologist Radiation Oncology 08/10/18 Irma Pierce NP [address] [place] [address] Nurse Practitioner Radiation Oncology 03/09/19 Nahed Hdez MD [address] [facility] [address] [place] [address] Consulting Physician Urology 03/24/22 Tim Aburto MD [id number] [place], [place] [address] Consulting Physician Cardiothoracic Surgery 09/17/22 Miscellaneous, Not In File 09/17/22 documented as of this encounter
--- OUTSIDE RECORDS SUMMARY | 2024-06-05 00:39 | XMS_ITS | Referral Summary ---
Author Organization [facility] Address [address] [place] [address] Care Team Providers Care Greenbelt Name Role Phone Walter Marrero MD Primary Care Provider [phone] Keegan Culver MD Unavailable [phone] Phill Richard MD Unavailable Kobi De La Paz MD Unavailable Naresh Collier MD Unavailable Kobi De La Paz MD Unavailable Irma Pierce NP Unavailable [phone] Nahed Hdez MD Unavailable [phone] Tim Aburto MD Unavailable Miscellaneous, Not In File Unavailable Unava ilable Encounters Date Type Department Care Team Description 06/02/2024 10:30 AM CDT Office Visit [facility] Cardiology [facility] [address] [place] [address] Branden Jenkins MD 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 8th [place] [address] [place] [phone] Branden Jenkins MD [facility] HOLD for Colonoscopy 05/01/2024 Telephone [facility] Cardiology [address] [facility] [address] [place] [address] Branden Jenkins MD Clearance form from Last 3 Months Allergies Active Allergy Reactions Criticality Noted Date Comments Venom-Honey Bee Swelling,Edema Medium 07/27/2017 Venom-Wasp Swelling,Edema Medium 03/13/2022 Medications atorvastatin (LIPITOR) 40 mg tabletIndicatio ns:hyperlipidem ia Take 1 tablet (40 mg total) by mouth nightly at bedtime. [address] (PROTONIX) 40 mg EC tabletIndicatio ns:Treatment of Non-Bleeding Gastric Disorder Take 1 tablet (40 mg total) by mouth daily 30 tablet 3 Active Additional Information Patient not taking.Informant: Family Member, Reported on 06/02/2024 ramelteon (ROZEREM) 8 mg tabletIndicatio ns:Sleep-Onset Insomnia Take 1 tablet (8 mg total) by mouth nightly as needed for sleep 3 Active Additional Information Patient not taking.Informant: Family Member, Reported on 06/02/2024 senna (SENOKOT) 8.6 mg tablet Take 1 tablet by mouth as needed for constipation Active cyanocobalamin (Vitamin B-12) 1,000 mcg tabletIndicatio ns:Prevention of Vitamin B12 Deficiency Take 1 tablet (1,000 mcg total) by mouth daily Active traZODone (DESYREL) 50 mg tablet Take 1 tablet (50 mg total) by mouth nightly Active ondansetron (ZOFRAN) solution 4 mg/5 mL Take 5 mL (4 mg total) by mouth as needed for nausea or vomiting Active cefdinir (OMNICEF) 300 mg capsule Take 1 capsule (300 mg total) by mouth 2 (two) times a day Active benzonatate (TESSALON) 100 mg capsuleIndicati ons:Cough Take 1 capsule (100 mg total) by mouth 3 (three) times a day as needed for cough Active amLODIPine (NORVASC) 2.5 mg tablet Take 1 tablet (2.5 mg total) by mouth daily Per PCP Active olmesartan (BENICAR) 20 mg tablet TAKE 1 TABLET EVERY DAY BY ORAL ROUTE IN THE MORNING. 4 Active fluticasone propionate (FLONASE) 50 mcg/actuation nasal spray SPRAY 1 SPRAY BY INTRANASAL ROUTE EVERY DAY 4 Active valACYclovir (Valtrex) 1 gram tablet Take by mouth Taking 1/2 Active carvediloL (COREG) 6.25 mg tablet TAKE 1 TABLET BY MOUTH TWICE A DAY WITH MEALS 180 tablet 3 4 Active clopidogreL (PLAVIX) 75 mg tablet TAKE 1 TABLET BY MOUTH EVERY DAY 90 tablet 1 5 Active Additional Information Patient not taking.Reported on 06/02/2024 Hospital, Clinic, or Other Facility Administered Medication Ordered Dose Route Frequency Start Date End Date Status perflutren protein-a (OPTISON) 3 mL in sodium chloride 0.9% 8 mL syringe 1 - 8 mL IV Once in imaging 08/12/2023 Active Active Problems Problem Noted Date Diagnosed Date Other hydronephrosis 10/20/2022 Renal stone 10/01/2022 Urinary incontinence, urge 09/15/2022 Assessment & Plan (09/15/2022 11:15 AM CDT): Reports this issue at home Will check UA Poor appetite 09/15/2022 Assessment & Plan (09/15/2022 11:15 AM CDT): Add supplements Encourage family to bring in food from outside hospital Cardiogenic shock 09/09/2022 Abnormal EKG 09/08/2022 Elevated troponin 09/08/2022 Assessment & Plan (09/15/2022 11:12 AM CDT): S/P [facility] PCI Continue aspirin, statin, BB, plavix Assessment & Plan (09/14/2022 12:43 PM CDT): S/P [facility] PCI Continue aspirin, statin, BB, plavix Tamponade 09/08/2022 Assessment & Plan (09/16/2022 11:52 AM CDT): S/P pericardial drain placement PT/OT Aggressive pulmonary toilet CT removed Continue prophylaxis antibiotics for total of 7 days for emergent sternotomy Heparin SQ for DVT prophylaxis Bowel regimen Discharge planning Assessment & Plan (09/14/2022 12:42 PM CDT): S/P pericardial drain placement PT/OT Aggressive pulmonary toilet Plan to DC Cts today Nephrolithiasis 03/23/2022 Left renal stone 02/12/2022 Overview (02/12/2022): Added automatically from request for surgery [id number] Aortic valve disorder 09/01/2020 Malignant neoplasm of prostate 02/11/2018 Cancer Staging:Pathologic stage from 03/09/2018:Stage YUNG(pT3b, pN1, cM0, PSA: 7.7, Grade Group: 5) - Signed by Kobi De La Paz MD on 05/03/2018 Overview (02/11/2018): Added automatically from request for surgery [id number] Hyperlipidemia 12/14/2017 Assessment & Plan (09/15/2022 11:11 AM CDT): Continue statin therapy Assessment & Plan (09/14/2022 12:43 PM CDT): Continue statin therapy Asymmetric SNHL (sensorineural hearing loss) Assessment & Plan (10/08/2017 1:59 PM CDT): - agree with trial of hearing aid. [facility] and if he is not covered then will pursue hearing aids with us - he deferred on the MRI; my secondary recommendation is for a yearly audiogram and we reviewed signs/symptoms that might suggest retrocochlear pathology Assessment & Plan (09/10/2017 10:10 AM CDT): - obtain MRI, will review it at f/u appointment - recommend hearing aid trial, will coordinate with MRI Bilateral impacted cerumen 09/10/2017 Assessment & Plan (10/08/2017 1:58 PM CDT): Improved today. Continue home regimen Assessment & Plan (09/10/2017 10:10 AM CDT): I discussed the management of cerumen impaction, which includes avoiding q-tips and manipulation of the ear canal. The patient may also try either a few drops mineral oil, sweet oil, diluted hydrogen peroxide, or Debrox once a week 10-15 minutes prior to showering. The patient was advised to call if the ear canal became painful, started draining, or hearing loss was noticed. Short of breath on exertion 06/20/2017 ASHD (arteriosclerotic heart disease) 08/26/2015 Dyslipidemia 08/26/2015 Benign hypertension 08/26/2015 Assessment & Plan (09/15/2022 11:11 AM CDT): Monitor Q4 hour vitals and adjust medications as needed for blood pressure control Continue Coreg 12.5mg BID and titrate as tolerated Assessment & Plan (09/14/2022 12:47 PM CDT): Monitor Q4 hour vitals and adjust medications as needed for blood pressure control Continue Coreg 12.5mg BID and titrate as tolerated Sleep apnea syndrome 08/26/2015 Assessment & Plan (09/15/2022 11:11 AM CDT): Continue home CPAP use Assessment & Plan (09/14/2022 12:47 PM CDT): Continue home CPAP use Chest pain 08/06/2015 Social History Tobacco Use Types Packs/Day Years Used Date Smoking Tobacco: Never Smokeless Tobacco: Never Tobacco Cessation:Counseling Given: Not Answered Alcohol Use Standard Drinks/Week Comments No 0 (1 standard drink = 0.6 oz pur e alcohol) AUDIT-C Answer Date Recorded Q1: How often do you have a drink containing alc ohol? 2-4 times a month 08/14/2022 Q2: How many drinks containi ng alcohol do you have on a typical day when you are drinking? 1 or 2 08/14/2022 Q3: How often do you have si x or more drinks on one occasion? Never 08/14/2022 PHQ-2 Answer Date Recorded PHQ-2 Score 0 10/12/2018 Personal Safety Answer Date Recorded Have you ever been in or are you currently in a harmful physical or emotional relationship or is someone making you feel afraid or unsafe? 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 Gender Identity Not on file Sexual Orientation Not on file Last Filed Vital Signs Vital Sign Reading Time Taken Comments Blood Pressure 106/62 06/02/2024 10:41 AM CDT Pulse 96 06/02/2024 10:41 AM CDT Temperature 36.6 C (97.8 F) 10/13/2022 8:20 AM CDT Respiratory Rate 18 09/17/2022 7:14 AM CDT Oxygen Saturation 98% 06/02/2024 10:41 AM CDT Inhaled Oxygen Concentration - - Weight 94.6 kg (208 lb 8 oz) 06/02/2024 10:41 AM CDT Height 175.3 cm (5' 9 ) 06/02/2024 10:41 AM CDT Body Mass Index 30.79 06/02/2024 10:41 AM CDT Plan of Treatment Not on file Medical Devices Implanted Type Area Dye Stand Loader Device Identifier Shelf Expiration Date Model / Serial / Lot Ter[employer] Jovan Angio-Seal Vip [place]-Plus 8fr .038in 70cm Hemostatic Latex Free [id number] - [id number] - [id number] Implanted:Qty: 1 on 09/09/2022 by Shailesh Briggs MD at [facility] Collagen Right: Groin Ter[employer] Jovan 05/23/2023 [id number] / [id number] / [id number] Ter[employer] Jovan Angio-Seal Vip Bon[place]k-Plus 8fr .038in 70cm Hemostatic Latex Free [id number] - [id number] - [id number] Implanted:Qty: 1 on 09/09/2022 by Shailesh Briggs MD at [facility] Collagen Left: Groin [employer] Jovan 04/22/2023 [id number] / [id number] / [id number] [employer] Inc Universa 6fr 28cm Firm Positioner Monofilament Tether Stent [id number] - Sn/A - [id number] Implanted:Qty: 1 on 03/23/2022 by Nahed Hdez MD at [facility] Explanted:04/02 by Nahed Hdez MD (Quantity not on file) Stent Left: Kidney [employer] [id number] 01/09/2025 [id number] / N/A / [id number] Medtronic Card Vasc Surgery 3.5 X 38mm [place] Rx Coronary Stent [id number] - [id number] - [id number] Implanted:Qty: 1 on 09/09/2022 by Shailesh Brgigs MD at [facility] Stent Right: Coronary Artery Medtronic Card Vasc Surgery 04/23/2025 [id number] / [id number] / [id number] Medtronic Card Vasc Surgery 4.0 X 38mm [place] Rx Coronary Stent [id number] - [id number] - [id number] Implanted:Qty: 1 on 09/09/2022 by Shailesh Briggs MD at [facility] Stent Right: Coronary Artery Medtronic Card Vasc Surgery 06/27/2025 [id number] / [id number] / [id number] Biotronik Inc Pk Papyrus 4mm 15mm 140mm Delivery System Cover Nonwoven 326330 - [id number] - [id number] Implanted:Qty: 1 on 09/09/2022 by Shailesh Briggs MD at [facility] Stent Right: Coronary Artery [employer] Inc 01/27/2024 [id number] / [id number] / [id number] Bi[employer]ron[employer] Inc Pk Papyrus 4mm 15mm 140mm Delivery System Cover Nonwoven [id number] - [id number] - [id number] Implanted:Qty: 1 on 09/09/2022 by Shailesh Briggs MD at [facility] Stent Right: Coronary Artery [employer] Inc 01/27/2024 [id number] / [id number] / [id number] Bi[employer] Pk Papyrus 5mm 15mm 140mm Delivery System Cover Nonwoven 032719 - [id number] - [id number] Implanted:Qty: 1 on 09/09/2022 by Shailesh Briggs MD at [facility] Stent Right: Coronary Artery [employer] Inc 10/23/2023 [id number] / [id number] / [id number] Explanted Type Area Dye Stand Loader Device Identifier Shelf Expiration Date Model / Serial / Lot [employer] Inc [id number] 6fr 26cm 145cm Radiopaque Positioner Filiform Flexible Tip - [id number] Implanted:Qty: 1 on 08/14/2022 by Nathan Joaquin MD at [facility] Explanted:Qty: 1 on 09/10/2022 Right: Ureter [employer] Inc [id number] 04/28/2025 [id number] / / [id number] Description:Explanted per x-ray Insurance [facility] [employer]AL MEDICARE [facility] MEDICARE (Home[address] [id number] MEDICARE [facility] [employer]AL Advance Directives For more information, please contact: [phone] Documents on File Type Date Recorded 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 ADVANCE DIRECTIVE 03/23/2022 8:40 AM Power of Patent Prosecution Paralegal-Medical * Full Code (Latest Code Status on File) Date Activated Date Inactivated Comments 09/09/2022 6:26 PM 09/17/2022 5:01 PM * Full Code Date Activated Date Inactivated Comments 09/09/2022 6:09 PM 09/09/2022 6:26 PM * Full Code Date Activated Date Inactivated Comments 03/23/2022 5:40 PM 03/24/2022 9:02 PM * Full Code Date Activated Date Inactivated Comments 03/09/2018 8:48 PM 03/10/2018 7:11 PM Care Teams [place] Relationship Specialty Start Date End Date Walter Marrero MD [address] [place] [address] PCP - General 04/02/17 Keegan Culver MD [address] [place] [address] Consulting Physician Urology 05/04/18 Phill Richard MD [address] [place] [address] Referring Physician Urology 05/04/18 Kobi De La Paz MD [address] [facility] [address] [place] [address] Consulting Physician Radiation Oncology 05/04/18 Naresh Collier MD [address] [place] [address] Medical Oncologist/Alligator Hunter Medical Oncology 05/04/18 Kobi De La Paz MD [address] [place] [address] Radiation Oncologist Radiation Oncology 08/10/18 Irma Pierce NURSING PROGRAM DIRECTOR [address] [place] [address] Nurse Practitioner Radiation Oncology 03/09/19 Nahed Hdez MD [address] [place] [address] Consulting Physician Urology 03/24/22 Tim Aburto MD [id number] [place] [address] Consulting Physician Cardiothoracic Surgery 09/17/22 Miscellaneous, Not In File 09/17/22
--- OUTSIDE RECORDS SUMMARY | 2024-06-05 00:39 | XMS_ITS ---
Author Organization [facility] Address [facility] [place] [address] Care Team Providers Care Optical Model Maker And Tester Name Role Phone Walter Marrero MD Primary Care Provider [phone] Dereje Culver MD Unavailable Phill Richard MD Unavailable Kobi De La Paz MD Unavailable Naresh [place] MD Unavailable Kobi De La Paz MD Unavailable Irma Pierce NP Unavailable Nahed Hdez MD Unavailable Tim Aburto MD Unavailable [phone] Miscellaneous, Not In File Unavailable Unava ilable Active Problems Problem Noted Date Diagnosed Date [...] & Plan (09/15/2022 11:12 AM CDT): S/P [facility] PCI Continue aspirin, statin, BB, plavix Assessment & Plan (09/14/2022 12:43 PM CDT): S/P [facility] PCI Continue aspirin, statin, BB, plavix [...] (02/12/2022): Added automatically from request for surgery [id number] Aortic valve disorder 09/01/2020 Malignant neoplasm of prostate 02/11/2018 Cancer Staging:Pathologic stage from 03/09/2018:Stage YUNG(pT3b, pN1, cM0, PSA: 7.7, Grade Group: 5) - Signed by Kobi De La Paz MD on 05/03/2018 Overview (02/11/2018): Added automatically from request for surgery [id number] Hyperlipidemia 12/14/2017 Assessment & Plan (09/15/2022 11:11 [...] Continue home CPAP use Chest pain 08/06/2015 Current Treatment and Therapy Plans No current plan information found. Past Treatment and Therapy Plans Specialty Infusion Treatment Plan Name Start Date Discontinue Date Treatment Medications Discontinue Reason Plan Provider Eligard Injection - 45 mg every 24 weeks 04/23/2020 12/30/2022 leuprolide (ELIGARD) Automatic discontinuation of dormant plans Kobi De La Paz MD LEUPROLIDE (LUPRON) FOR RADIATION ONCOLOGY 10/03/2018 04/23/2020 leuprolide acetate (6 month) (LUPRON) syringe kit Drug Shortage Kobi De La Paz MD Radiation Treatments * Course C1 PRST_NOD 2019 08/24/2018 - 10/18/2018 Treatment Period Energy Fraction Dose Fractions Total Dose Plans Planned PRST FOSSA 10/06/2018 - 10/18/2018 180 9 / 1,620 PELVIS_LN 08/24/2018 - 10/05/2018 220 28 / 6,160 Reference Points Delivered [id number]_[id number] DPV 10/06/2018 - 10/18/2018 1,620 PTV_6160 08/24/2018 - 10/05/2018 6,160 Lifetime Dose Tracking * Chemical Lifetime Dose Automatic Entry Manual Entr y Fluoro Time 2.03 minutes 2.03 minutes 0 minutes Air kerma at the reference point (Ka,r) 2,425.81 mGy 2 9.81 mGy 2,396 mGy DLP 1,318 mGycm 1,318 mGycm 0 mGycm
--- OUTSIDE RECORDS SUMMARY | 2024-06-05 00:39 | XMS_ITS | Clinical Summary ---
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
--- OUTSIDE RECORDS SUMMARY | 2024-06-05 00:39 | XMS_ITS | Clinical Summary ---
Author Organization [facility] Address [facility] [place] [address] Care Team Providers Care Clean Up Person Name Role Phone Walter Marrero MD Primary Care Provider [phone] Allergies Active Allergy Reactions Criticality Noted Date Comments Bee Venom Swelling Medium 07/27/2017 Medications ASPIRIN 81 81 MG chewable tablet TAKE 1 TABLET BY MOUTH EVERY DAY 1 04/10/2018 Active enalapril 20 MG tablet Take 20 mg by mouth daily. 1 09/23/2018 Active oxybutynin 5 MG tablet Take 5 mg by mouth 2 (two) times daily. 2 09/12/2018 Active tadalafil 5 MG tablet Take 5 mg by mouth daily. 6 11/30/2018 Active EPINEPHRINE 0.3 MG/0.3ML injection Inject 0.3 mLs (0.3 mg total) into the muscle as needed for Anaphylaxis. 2 each 09/17/2019 Active valACYclovir 1 g tablet Take 1,000 mg by mouth daily. 06/16/2019 Active vitamin D2, ergocalciferol, 61446 UNITS capsule 03/17/2019 Active atorvastatin 40 MG tablet Take 40 mg by mouth nightly at bedtime. 07/02/2019 Active guaiFENesin ER 600 MG 12 hr tablet Take 2 tablets (1,200 mg total) by mouth 2 (two) times daily. 28 tablet 05/31/2021 Active Active Problems Problem Noted Date Diagnosed Date Neck pain 04/05/2023 Urinary incontinence 08/05/2020 Wasp sting, accidental or unintentional, initial encounter 09/29/2019 Malignant neoplasm of prostate ([facility]) 02/11/2018 Overview (09/17/2019): Added automatically from request for surgery [id number] Hyperlipidemia 12/14/2017 Asymmetric SNHL (sensorineural hearing loss) Overview (09/17/2019): Last Assessment & Plan: - agree with trial of hearing aid. [facility] and if he is not covered then will pursue hearing aids with us - he deferred on the MRI; my secondary recommendation is for a yearly audiogram and we reviewed signs/symptoms that might suggest retrocochlear pathology Bilateral impacted cerumen 09/10/2017 Overview (09/17/2019): Last Assessment & Plan: Improved today. Continue home regimen Short of breath on exertion 06/20/2017 Atherosclerosis of coronary artery 08/26/2015 Benign hypertension 08/26/2015 Dyslipidemia 08/26/2015 Sleep apnea syndrome 08/26/2015 Chest pain 08/06/2015 Encounters Date Type Department Care Team Description 05/29/2024 8:14 AM CDT - 05/29/2024 11:59 PM CDT Hospital Encounter [facility] [address] [place] [address] Rory Chong DPT Shenouda, Mounir, MD Neck Pain Discharge Disposition: Home or Self Care (Routine Discharge) 05/29/2024 Travel 05/24/2024 10:27 AM CDT - 05/24/2024 11:59 PM CDT Hospital Encounter [facility] [address] [place] [phone] Rory Chong DPT Shenouda, Mounir, MD Neck Pain Discharge Disposition: Home or Self Care (Routine Discharge) 05/24/2024 Travel 05/19/2024 8:30 AM CDT - 05/19/2024 11:59 PM CDT Hospital Encounter [facility] [id number] [place] [address] Rory Chong DPT Shenouda, Mounir, MD Neck Pain Discharge Disposition: Home or Self Care (Routine Discharge) 05/19/2024 Travel 05/16/2024 8:13 AM CDT - 05/16/2024 11:59 PM CDT Hospital Encounter [facility] [address] [place] [phone] Rory Chong, Walter Snow MD Neck Pain Discharge Disposition: Home or Self Care (Routine Discharge) 05/16/2024 Travel 05/12/2024 9:23 AM CDT - 05/12/2024 11:59 PM CDT Hospital Encounter [facility] [address] [place] [phone] Rory Chong, Walter Snow MD Neck Pain Discharge Disposition: Home or Self Care (Routine Discharge) 05/12/2024 Travel 05/09/2024 7:20 AM CDT - 05/09/2024 11:59 PM CDT Hospital Encounter [facility] [address] [place] [phone] Rory Chong, Walter Snow MD Neck Pain Discharge Disposition: Home or Self Care (Routine Discharge) 05/09/2024 Travel 05/05/2024 7:53 AM CDT - 05/05/2024 11:59 PM CDT Hospital Encounter [facility] [address] [place] [address] 70786 Walter Marrero MD Sackett, Kim, PTA Neck Pain Discharge Disposition: Home or Self Care (Routine Discharge) 05/05/2024 Travel 05/02/2024 9:13 AM CDT - 05/02/2024 11:59 PM CDT Hospital Encounter [facility] [address] [place] [phone] Rory Chong, Walter Snow MD Neck Pain Discharge Disposition: Home or Self Care (Routine Discharge) 05/02/2024 Travel 04/28/2024 8:22 AM ORNAMENTAL PLASTER STICKER - 04/28/2024 11:59 PM ORNAMENTAL PLASTER STICKER Hospital Encounter [facility] [address] [place] [address] Lita Ramirez, PT Walter Marrero MD Neck Pain Discharge Disposition: Home or Self Care (Routine Discharge) 04/28/2024 Travel 04/25/2024 2:37 PM ORNAMENTAL PLASTER STICKER - 04/25/2024 11:59 PM ORNAMENTAL PLASTER STICKER Hospital Encounter [facility] [address] [place] [address]75[address] Walter Marrero MD Eddy, Sandi L, SOFTWARE ADMINISTRATOR Neck Pain Discharge Disposition: Home or Self Care (Routine Discharge) 04/25/2024 Travel 04/21/2024 9:09 AM ORNAMENTAL PLASTER STICKER - 04/21/2024 11:59 PM ORNAMENTAL PLASTER STICKER Hospital Encounter [facility] [address] [place] [address] Rory Chong, Walter Snow MD Neck Pain Discharge Disposition: Home or Self Care (Routine Discharge) 04/21/2024 Travel 04/18/2024 8:57 AM ORNAMENTAL PLASTER STICKER - 04/18/2024 11:59 PM ORNAMENTAL PLASTER STICKER Hospital Encounter [facility] [address] [place] [address] [phone] Rory Chong, Walter Snow MD Neck Pain Discharge Disposition: Home or Self Care (Routine Discharge) 04/18/2024 Travel 04/14/2024 9:27 AM ORNAMENTAL PLASTER STICKER - 04/14/2024 11:59 PM ORNAMENTAL PLASTER STICKER Hospital Encounter [facility] [address] [place] [address] Rory Chong, Walter Snow MD Sackett, Kim, SOFTWARE ADMINISTRATOR Discharge Disposition: Home or Self Care (Routine Discharge) 04/14/2024 Travel 04/11/2024 9:34 AM ORNAMENTAL PLASTER STICKER - 04/11/2024 11:59 PM ORNAMENTAL PLASTER STICKER Hospital Encounter [facility] [address] [place] [address] Rory Chong, Walter Snow MD Neck Pain Discharge Disposition: Home or Self Care (Routine Discharge) 04/11/2024 Travel 04/07/2024 9:11 AM ORNAMENTAL PLASTER STICKER - 04/07/2024 11:59 PM ORNAMENTAL PLASTER STICKER Hospital Encounter [facility] [address] [place] [address] Rory Chong, Walter Snow MD Neck Pain Discharge Disposition: Home or Self Care (Routine Discharge) 04/07/2024 Travel 04/03/2024 9:25 AM ORNAMENTAL PLASTER STICKER - 04/03/2024 11:59 PM ORNAMENTAL PLASTER STICKER Hospital Encounter [facility] [address] [place] [address] Rory Chong, Elizabeth Dai PTA Neck Pain Discharge Disposition: Home or Self Care (Routine Discharge) 04/03/2024 Travel 03/31/2024 9:35 AM ORNAMENTAL PLASTER STICKER - 03/31/2024 11:59 PM ORNAMENTAL PLASTER STICKER Hospital Encounter [facility] [id number] [place] [address] [phone] Rory Chong, Walter Snow MD Neck Pain Discharge Disposition: Home or Self Care (Routine Discharge) 03/31/2024 Travel 03/28/2024 10:35 AM ORNAMENTAL PLASTER STICKER - 03/28/2024 11:59 PM ORNAMENTAL PLASTER STICKER Hospital Encounter [facility] [address] [place] [address] Rory Chong, Walter Snow MD Neck Pain Discharge Disposition: Home or Self Care (Routine Discharge) 03/28/2024 Travel from Last 3 Months Immunizations Immunization Administration Dates Next Due Fluzone High Dose - >Age 65 (Prefilled Syringe) 12/09/2018,10/12/2017,11/10/2016,2014 Influenza Adult (Generic) 10/15/2015 Pneumococcal (Pneumovax 23) 01/09/2016 Shingrix 02/24/2018,09/18/2017 Tdap (Adacel) 12/09/2018 Tdap (Boostrix) 12/09/2018,10/15/2015 Social History Tobacco Use Types Packs/Day Years [...] Sex Assigned at Male 03/29/2023 9:33 AM ORNAMENTAL PLASTER STICKER Legal Sex Male 9:24 PM CDT Gender Identity Male 03/29/2023 9:33 AM ORNAMENTAL PLASTER STICKER Sexual Orientation Straight 03/29/2023 9: 33 AM ORNAMENTAL PLASTER STICKER Last Filed Vital Signs Vital Sign Reading Time Taken Comments Blood Pressure 158/63 05/31/2021 8:29 AM CDT Pulse 86 05/31/2021 8:29 AM CDT Temperature 36.8 C (98.3 F) 05/31/2021 8:29 AM CDT Respiratory Rate 20 05/31/2021 8:29 AM CDT Oxygen Saturation 98% 05/31/2021 8:29 AM CDT Inhaled Oxygen Concentration - - Weight 88.5 kg (195 lb) 05/31/2021 8:29 AM CDT Height 175.3 cm (5' 9 ) 05/31/2021 8:29 AM CDT Body Mass Index 28.8 05/31/2021 8:29 AM CDT Plan of Treatment Health Maintenance Due Date Last Done Comments ASCVD Statin 1945 Hepatitis C 12/21/1965 Annual Medicare Wellness Visit 12/21/2012 ASCVD LDL 06/17/2019 06/16/2018 RSV Immunization or 60+ Years (1 - 1-dose 75+ series) 12/21/2022 COVID-19 Vaccine ( season) 2023 05/02/2020, 04/04/2020 DTaP, Tdap and Td Vaccines (6 - Td or Tdap) 12/15/2033 12/16/2023, 12/09/2018, 12/09/2018, Additional history exists Pneumococcal Vaccine: 50+ Years Completed 01/09/2016, 11/23/2015, 02/22/2009 Zoster Vaccines Completed 02/24/2018, 1002/2017, 09/18/2017 Colorectal Cancer Screening FIT/FOBT (1 Year) Discontinued 06/27/2018 RSV Immunizations Under 20 Months Aged Out 04/23/2023 No longer eligible based on patient's age to complete this topic Meningococcal B Vaccine Aged Out No l onger eligible based on patient's age to complete this topic Meningococcal Vaccine Aged Out No fox alethea eligible based on patient's age to complete this topic Procedures Procedure Name Priority Date/Time Associated Diagnosis Comments OCCULT BLOOD, FECES Routine 06/27/2018 3 :45 PM CDT LIPID PANEL Routine 06/16/2018 10:02 AM CDT from Last 3 Months or Most Recently Relevant to Health Maintenance Results * OCCULT BLOOD, FECES (06/27/2018 3:45 PM CDT) [facility] OCCULT BLOOD FECAL NEGATIVE NEGATIVE 06/27/2018 3:52 PM CDT [facility] 06/27/2018 3:45 PM CDT 06/27/2018 3:45 PM CDT us Generic Conversion Md GONZALEZ BODY FLUIDS AND STOOLS ORDERABLES Final Result [facility] [id number] [place] [address], [place] [phone] * (ABNORMAL) LIPID PANEL (06/16/2018 10:02 AM CDT) [facility] CHOLESTEROL 143 <200.0 MG/DL 06/16/2018 10:55 AM CDT [facility] TRIGLYCERIDES 100 <150 MG/DL 06/16/2018 10:55 AM CDT [facility] HDL 39(L) >40.0 MG/DL 06/16/2018 10:55 AM CDT [facility] LDL (CALCULATED) 84 <100 MG/DL 06/17/19 19 10:55 AM CDT [facility] NON HDL CHOLESTEROL 104 <130 MG/DL 06/16 10:55 AM CDT [facility] CHOL/HDL RATIO 3.7 0.0 - 4.5 06/16/2018 10:55 AM CDT [facility] VLDL CALCULATION 20 5 - 55 MG/DL 06/16/2018 10:55 AM CDT [facility] LIPID INTERPRETATION 06/16/2018 10:55 AM CDT [facility] Comment: [facility] CONCENSUS REPORT RECOMMENDATIONS: ADULT CHILD LOW RISK: CHOLESTEROL <200 <170 TRIGLYCERIDE <150 --- HDL >=60 --- LDL <100 <110 BORDERLINE: CHOLESTEROL 200-239 170-199 TRIGLYCERIDE 150-199 --- HDL 40-59 --- LDL 100-159 110-129 HIGH RISK: CHOLESTEROL >=240 >=200 TRIGLYCERIDE >=200 --- HDL <40 --- LDL >=160 >=130 06/16/2018 10:0 2 AM CDT 06/16/2018 10:03 AM CDT us Generic Conversion Md GONZALEZ [facility] Final R esult [facility] [address] [facility] [place] [place] [address], from Last 3 Months or Most Recently Relevant to Health Maintenance Insurance [place] [address] [place] [id number] Care Teams Clean Up Person Relationship Specialty Start Date End Date Walter Marrero MD PCP - General INTERNAL MEDICINE 08/02/18
--- OUTSIDE RECORDS SUMMARY | 2024-06-05 00:39 | XMS_ITS | Encounter Summary ---
Author Organization [facility] Address [address] [place] [address] Phone Care Team Providers Care Personnel Coordinator Name Role Phone Walter Marrero MD Primary Care Provider + [phone] Dereje Culver MD Unavailable [phone] Phill Richard MD Unavailable [phone] Kobi De La Paz MD Unavailable Naresh Collier MD Unavailable [phone] Kobi De La Paz MD Unavailable Irma Pierce NP Unavailable [phone] Nahed Hdez MD Unavailable [phone] Tim Aburto MD Unavailable [phone] Miscellaneous, Not In File Unavailable Unava ilable Encounter Details Date Type Department Care Team (Latest Contact Info) Description 12/27/2020 Orders Only [facility] Scanning, Provider Social History Tobacco Use Types Packs/Day Years Used Date Smoking Tobacco: Never Smokeless Tobacco: Never Alcohol Use Standard Drinks/Week Comments No 0 (1 standard drink = 0.6 oz pur e alcohol) PHQ-2 Answer Date Recorded PHQ-2 Score 0 10/12/2018 Sex and Gender Information Value Date Recorded Sex Assigned at Not on file Legal Sex Male 2:41 AM SPORTS NUTRITIONIST Gender Identity Not on file Sexual Orientation Not on file documented as of this encounter Plan of Treatment Not on file documented as of this encounter Procedures Procedure Name Priority Date/Time Associated Diagnosis Comments SCAN - RADIOLOGY/IMAGING 12/27/2020 documented in this encounter Results * SCAN - RADIOLOGY/IMAGING (12/27/2020) Anatomical Region Laterality Modality Other us Provider Scanning Final Result documented in this encounter Visit Diagnoses Not on filedocumented in this encounter Care Teams Personnel Coordinator Relationship Specialty Start Date End Date Walter Marrero MD [address] [place] [address] PCP - General 04/02/17 Dereje Culver MD [address] [place] [address] Consulting Physician Urology 05/04/18 Phill Richard MD [address] [place] [address] Referring Physician Urology 05/04/18 Kobi De La Paz MD [address] [place] [address] Consulting Physician Radiation Oncology 05/04/18 Naresh Collier MD [address] [place] [address] Medical Oncologist/Textile Converter Medical Oncology 05/04/18 Kobi De La Paz MD [address] [place] [address] Radiation Oncologist Radiation Oncology 08/10/18 Irma Pierce NP [address] [facility] [address] [place] [address] Nurse Practitioner Radiation Oncology 03/09/19 Nahed Hdez MD [address] [facility] [address] [place] [address] Consulting Physician Urology 03/24/22 Tim Aburto MD [id number] [place] [address] Consulting Physician Cardiothoracic Surgery 09/17/22 Miscellaneous, Not In File 09/17/22 documented as of this encounter
--- OUTSIDE RECORDS SUMMARY | 2024-06-05 00:39 | XMS_ITS | Clinical Summary ---
Author Organization [facility] Address [address] [place] [address] Care Team Providers Care Health Information Assistant Name Role Phone Walter Marrero MD Primary Care Provider [phone] Keegan Culver MD Unavailable Phill Richard MD Unavailable Kobi De La Paz MD Unavailable Naresh Collier MD Unavailable Kobi De La Paz MD Unavailable Irma Pierce NP Unavailable [phone] Nahed Hdez MD Unavailable Tim Aburto MD Unavailable Miscellaneous, Not In File Unavailable Unava ilable Allergies Active Allergy Reactions Criticality Noted Date [...] & Plan (09/15/2022 11:12 AM CDT): S/P [facility] PCI Continue aspirin, statin, BB, plavix Assessment & Plan (09/14/2022 12:43 PM CDT): S/P [facility] PCI Continue aspirin, statin, BB, plavix Tamponade [...] (02/12/2022): Added automatically from request for surgery [id number] Aortic valve disorder 09/01/2020 Malignant neoplasm of prostate 02/11/2018 Cancer Staging:Pathologic stage from 03/09/2018:Stage YUNG(pT3b, pN1, cM0, PSA: 7.7, Grade Group: 5) - Signed by Kobi De La Paz MD on 05/03/2018 Overview (02/11/2018): Added automatically from request for surgery [id number] Hyperlipidemia 12/14/2017 Assessment & Plan (09/15/2022 11:11 [...] Continue home CPAP use Chest pain 08/06/2015 Encounters Date Type Department Care Team Description 06/02/2024 10:30 AM CDT Office Visit [facility] Cardiology [address] [place] [address] Medical [address] [place] [address] Branden Jenkins MD Coronary artery disease involving [place] coronary artery of [place] heart with unstable angina pectoris (HCC) (Primary Dx); SOB (shortness of breath) on exertion 05/23/2024 Telephone [facility] Cardiology [address] [place] [address] Advanced Medicine 8th [place] [address] [place] [address] Branden Jenkins MD [facility] HOLD for Colonoscopy 05/01/2024 Telephone [facility] Cardiology [address] [place] [address] Medical Office [address] [place] [address] Branden Jenkins MD Clearance form from Last 3 Months Surgical History Surgery Date Site/Laterality Comments HERNIA REPAIR 02/22/1962 - 02/21/1963 Right [facility] UMBILICAL HERNIA REPAIR 02/22/2007 - 02/22/2008 [facility] APPENDECTOMY 02/22/1959 - 02/22/1960 [facility] PROSTATECTOMY 02/22/2018 - 02/21/2019 KIDNEY STONE SURGERY 02/22/2022 - 03/24/2022 Left 3 mm stone removed CARDIAC CATHETERIZATION 02/22/2002 - 02/21/2003 Medical History Medical History Date Comments Hypertension Sleep apnea CAD (coronary artery disease) HLD (hyperlipidemia) Prostate cancer (HCC) 2019 Status post radiation therapy 09/2018 pr ostate cancer Painful bladder spasm 02/2022 woke up fr om surgery - was given something (not known) and it subsided Kidney stone Family History Medical History Relation Name Comments Coronary artery disease Father Fami ly history of coronary artery disease - (Added by TW Conv) Heart disease Father CABG Hypertension Mother Family history of hypertension - (Added by TW Conv) Stroke Mother Family history of stroke - (Added by TW Conv) Anesthesia problems Neg Hx Relation Name Status Comments Father Mother Social History Tobacco Use Types Packs/Day Years [...] on file Legal Sex Male 2:41 AM HOME CHILD CARE PROVIDER Gender Identity Not on file Sexual Orientation Not on file Obstetrics History Last Filed Vital Signs Vital Sign Reading [...] 06/02/2024 10:41 AM CDT Plan of Treatment Health Maintenance Due Date Last Done Comments Hepatitis C Screening 1945 Hepatitis B Screening 12/21/1963 Well Visit 65+ 12/21/2012 Depression Screening 02/11/2019 02/11/2018, 02/12/20 18 Fall Risk Assessment 09/18/2023 09/17/2022 Influenza Vaccine (Season Ended) 2024 10/28/2020, 10/09/2019, 12/09/2018, Additional history exists DTaP/Tdap/Td Vaccine (4 - Td or Tdap) 12/09/2028 12/09/2018, 11/19/2015, 10/15/2015 Pneumococcal vaccine 65+ Completed 016, 11/23/2015, 02/22/2009 Zoster Vaccine Completed 02/24/2018, 02/2017, 09/18/2017 Medical Devices Implanted Type Area Civil Clerk Device Identifier Shelf Expiration Date Model / Serial / Lot Terumo Medical Jovan Angio-Seal Vip Bondek-Plus 8fr .038in 70cm Hemostatic Latex Free [id number] - [id number] - [id number] Implanted:Qty: 1 on 09/09/2022 by Shailesh Briggs MD at [facility] Collagen Right: Groin [employer] Jovan 05/23/2023 [id number] / [id number] / [id number] Ter[employer] Jovan Angio-Seal Vip Bondek-Plus 8fr .038in 70cm Hemostatic Latex Free [id number] - [id number] - [id number] Implanted:Qty: 1 on 09/09/2022 by Shailesh Briggs MD at [facility] Collagen Left: Groin [employer] Jovan 04/22/2023 [id number] / [id number] / [id number] Cook [employer] Inc Universa 6fr 28cm Firm Positioner Monofilament Tether Stent [id number] - Sn/A - [id number] Implanted:Qty: 1 on 03/23/2022 by Nahed Hdez MD at [facility] Explanted:04/02 by Nahed Hdez MD (Quantity not on file) Stent Left: Kidney [employer] [id number] 01/09/2025 [id number] / N/A / [id number] Medtronic Card Vasc Surgery 3.5 X 38mm [place] Dillon Rx Coronary Stent [id number] - [id number] - [id number] Implanted:Qty: 1 on 09/09/2022 by Shailesh Briggs MD at [facility] Stent Right: Coronary Artery Medtronic Card Vasc Surgery 04/23/2025 [id number] / [id number] / [id number] Medtronic Card Vasc Surgery 4.0 X 38mm [place] Dillon Rx Coronary Stent [id number] - [id number] - [id number] Implanted:Qty: 1 on 09/09/2022 by Shailesh Briggs MD at [facility] Stent Right: Coronary Artery Medtronic Card Vasc Surgery 06/27/2025 [id number] / [id number] / [id number] Biotronik Inc Pk Papyrus 4mm 15mm 140mm Delivery System Cover Nonwoven [id number] - [id number] - [id number] Implanted:Qty: 1 on 09/09/2022 by Shailesh Briggs MD at [facility] Stent Right: Coronary Artery Biotronik Inc 01/27/2024 [id number] / [id number] / [id number] Biotronik Inc Pk Papyrus 4mm 15mm 140mm Delivery System Cover Nonwoven [id number] - [id number] - [id number] Implanted:Qty: 1 on 09/09/2022 by Shailesh Briggs MD at [facility] Stent Right: Coronary Artery [employer] Inc 01/27/2024 [id number] / [id number] / [id number] Bi[employer] Inc Pk Papyrus 5mm 15mm 140mm Delivery System Cover Nonwoven [id number] - [id number] - [id number] Implanted:Qty: 1 on 09/09/2022 by Shailesh Briggs MD at [facility] Stent Right: Coronary Artery [employer] Inc 10/23/2023 [id number] / [id number] / [id number] Explanted Type Area Civil Clerk Device Identifier Shelf Expiration Date Model / Serial / Lot Pelago Inc [id number] 6fr 26cm 145cm Radiopaque Positioner Filiform Flexible Tip - [id number] Implanted:Qty: 1 on 08/14/2022 by Nathan Joaquin MD at [facility] Explanted:Qty: 1 on 09/10/2022 Right: Ureter [employer] Inc [id number] 04/28/2025 [id number] / / [id number] Description:Explanted per x-ray Insurance [facility] MEDICARE [facility] MEDICARE MEDICARE [facility] Advance Directives For more information, please contact: [phone] Documents on File Type Date Recorded Patient Soda Tester Expl anation ADVANCE DIRECTIVE 03/23/2022 8:40 AM Power of Financial Planner-Medical * Full Code (Latest Code Status on File) Date Activated Date Inactivated Comments 09/09/2022 6:26 PM 09/17/2022 5:01 PM * Full Code Date Activated Date Inactivated Comments 09/09/2022 6:09 PM 09/09/2022 6:26 PM * Full Code Date Activated Date Inactivated Comments 03/23/2022 5:40 PM 03/24/2022 9:02 PM * Full Code Date Activated Date Inactivated Comments 03/09/2018 8:48 PM 03/10/2018 7:11 PM Care Teams Health Information Assistant Relationship Specialty Start Date End Date Walter Marrero MD [address] [place] [address] PCP - General 04/02/17 PalomoKeegan machuca MD [address] [place] [address] Consulting Physician Urology 05/04/18 Phill Richard MD [address] [place] [address] Referring Physician Urology 05/04/18 Kobi De La Paz MD [address] [place], [place] [address] Consulting Physician Radiation Oncology 05/04/18 Naresh Collier MD [address] [place] [address] Medical Oncologist/Merchandising Representative Medical Oncology 05/04/18 Kobi De La Paz MD [address] [place] [address] Radiation Oncologist Radiation Oncology 08/10/18 Irma Pierce DIAMOND MOUNTER [address] [place] [address] Nurse Practitioner Radiation Oncology 03/09/19 Nahed Hdez MD [address] [place], [place] [address] Consulting Physician Urology 03/24/22 Tim Aburto MD [id number] [place], [place] [address] Consulting Physician Cardiothoracic Surgery 09/17/22 Miscellaneous, Not In File 09/17/22
--- OUTSIDE RECORDS SUMMARY | 2024-06-05 00:39 | XMS_ITS | Encounter Summary ---
Author Organization [facility] Address [address] [place] [address] Phone Care Team Providers Care Lining Cutter Name Role Phone Walter Marrero MD Primary Care Provider + [phone] Dereje Culver MD Unavailable [phone] Phill Richard MD Unavailable [phone] Kobi De La Paz MD Unavailable Naresh Collier MD Unavailable Kobi De La Paz MD Unavailable Irma Pierce NP Unavailable [phone] Nahed Hdez MD Unavailable [phone] Tim Aburto MD Unavailable [phone] Miscellaneous, Not In File Unavailable Unava ilable Encounter Details Date Type Department Care Team (Latest Contact Info) Description 08/07/2020 Orders Only [facility] Scanning, Provider [...] on file 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 Gender Identity Not on file Sexual Orientation Not on file documented as of this encounter Plan of Treatment Not on file documented as of this encounter Procedures Procedure Name Priority Date/Time Associated Diagnosis Comments CARDIOLOGY DOCUMENT SCAN 08/07/2020 documented in this encounter Results * SCAN - CARDIOLOGY (08/07/2020) Anatomical Region Laterality Modality Other us Provider Scanning [facility] CARDIAC SERVICES PROCEDURES Final Result documented in this encounter Visit Diagnoses Not on filedocumented in this encounter Care Teams Lining Cutter Relationship Specialty Start Date End Date Walter Marrero MD [address] [place] [address] PCP - General 04/02/17 Dereje Culver MD [address] [place] [address] Consulting Physician Urology 05/04/18 Phill Richard MD [address] [place] [address] Referring Physician Urology 05/04/18 Kobi De La Paz MD [address] [place] [address] Consulting Physician Radiation Oncology 05/04/18 Naresh Collier MD [address] [place] [address] Medical Oncologist/Salesperson [employer] Medical Oncology 05/04/18 Kobi De La Paz MD [address] [place] [address] Radiation Oncologist Radiation Oncology 08/10/18 Irma Pierce NP [address] [facility] [address] [place] [address] Nurse Practitioner Radiation Oncology 03/09/19 Nahed Hdez MD [address] [facility] [address] [place] [address] Consulting Physician Urology 03/24/22 Tim Aburto MD [id number] [place] [address] Consulting Physician Cardiothoracic Surgery 09/17/22 Miscellaneous, Not In File 09/17/22 documented as of this encounter
[2024-06-05 09:21] VITALS: BP 137/82; PULSE 81; RESP 20; TEMP 36.3; O2SAT 99
[2024-06-05] MEDS: LACTATED RINGERS 1,000 ML 150 ML IV CONT (09:34)
--- NOTE | 2024-06-05 10:17 | PM.IMHP ---
H&P: HPI History of Present Illness Date/Time: 06/05/24 10:17 Chief Complaint: History of colon polyps Narrative: The patient has a history of colonic polyps, the last colonoscopy was More than 10 years ago. 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 08/14 at [place] Social History Social History Smoking status: Never smoker Substance use type: does not use Lack of Transportation: No Lack of Food: Never True Current Housing: I Have Housing Concerned About Future Housing: No Difficulty Paying Gas/Electric Bills: No Difficulty Paying for Meds: No Currently Unemployed: No Education: Decline to Answer Difficulty w/ Childcare or Family Care: No Living arrangements: alone Gender identity (if verbalized by the patient): Male Meds Home Medications and Allergies Home Medications ?Medication ?Instructions ?Recorded ?Confirmed ?Type atorvastatin 40 mg tablet 40 mg PO HS 02/08/19 06/05/24 History carvedilol 6.25 mg tablet 6.25 mg PO BID 12/03/22 06/05/24 History melatonin 5 mg tablet 5 mg PO HS PRN Insomnia 12/03/22 05/10/24 History amlodipine 2.5 mg tablet 2.5 mg PO DAILY 12/04/22 06/05/24 History clopidogrel 75 mg tablet 75 mg PO DAILY 12/04/22 06/05/24 History nitroglycerin 0.4 mg sublingual 0.4 mg sublingual DIRECTED PRN 12/04/22 05/10/24 History tablet Chest Pain Miralax 17 g PO DAILY 12/05/22 05/10/24 History aspirin 81 mg PO DAILY 12/05/22 06/05/24 History cholecalciferol (vitamin D3) 5,000 units PO DAILY 12/05/22 05/10/24 History cyanocobalamin (vitamin B-12) 1,000 mcg PO DAILY 12/05/22 05/10/24 History 1,000 mcg tablet (Vitamin B-12) fluorometholone 1 drp RIGHT EYE DAILY 12/05/22 06/05/24 History pantoprazole 40 mg tablet,delayed 40 mg PO DAILY 12/05/22 05/10/24 History release ramelteon 8 mg tablet 8 mg PO HS 12/05/22 05/10/24 History trazodone 50 mg tablet 50 mg PO HS 12/05/22 05/10/24 History valacyclovir 500 mg tablet 500 mg PO DAILY 12/05/22 06/05/24 History ferrous sulfate 325 mg (65 mg 325 mg PO DAILY #30 tabs 12/07/22 05/10/24 Rx iron) tablet,delayed release B-complex with vitamin C 1 tablet PO DAILY 05/10/24 06/05/24 History cholecalciferol (vitamin D3) 50 50 mcg PO DAILY 05/10/24 06/05/24 History mcg (2,000 unit) capsule (D3-2000) coQ10 (ubiquinol) 200 mg capsule 200 mg PO HS 05/10/24 06/05/24 History flaxseed oil 1 cap PO DAILY 05/10/24 06/05/24 History garlic 1,000 mg capsule 1,000 mg PO DAILY 05/10/24 06/05/24 History glucosamine-chondroitin 1 tablet PO DAILY 05/10/24 06/05/24 History lutein 25 mg-zeaxanthin 5 mg 1 cap PO DAILY 05/10/24 06/05/24 History capsule lysine 500 mg tablet (L-Lysine) 500 mg PO DAILY 05/10/24 06/05/24 History multivit with minerals-iron 18 1 tablet PO DAILY 05/10/24 06/05/24 History mg-folic ac 400 mcg-vit K 25 mcg tablet (Adults Multivitamin) olmesartan 20 mg tablet 20 mg PO DAILY 05/10/24 06/05/24 History omega 6-cux-ihq-fish oil 1,000 mg 1 cap PO DAILY 05/10/24 06/05/24 History (120 mg-180 mg) capsule (Fish Oil) omega-3 240 ir-mwz-fut-cod liver 1 cap PO DAILY 05/10/24 06/05/24 History oil 1,000 mg-vit A-vit D3 capsule (cod liver oil) vitamin E 180 mg PO DAILY 05/10/24 06/05/24 History zinc gluconate 50 mg tablet 50 mg PO DAILY 05/10/24 06/05/24 History Allergies Allergy/AdvReac Type Severity Reaction Status Date / Time Bumble Bee Allergy Unknown Swelling Uncoded 06/05/24 09:18 Vital Signs Vital Signs - 24 hr 06/05/24 09:21 Temperature 97.4 F L Pulse Rate 81 Respiratory Rate 20 Blood Pressure 137/82 Pulse Oximetry 99 Oxygen Delivery Room Air Exam Const: General: cooperative and healthy appearing Resp: Effort & Inspection: normal respiratory effort and able to speak in complete sentences Auscultation: clear to auscultation bilaterally Cardio: Rate: regular rate Rhythm: regular rhythm GI: Inspection: normal to inspection GI Palp: No No hepatosplenomegaly present Auscultation: normal bowel sounds Rectal Exam: deferred Skin: General skin exam: normal color Psych: Appearance: grossly normal Mental Status: mental status grossly normal Assessment and Plan Assessment and plan (1) History of colonic polyps: Code(s): Z86.0100 - Personal history of colon polyps, unspecified Status: Acute Assessment and Plan: The patient is deemed a good candidate for the procedure. Consent signed. Will proceed.
--- NOTE | 2024-06-05 10:29 | WPDANESEPPF ---
Anes - Initial Pre Proc Eval Procedure: Operation Date: 06/05/24 10:30 Proposed Procedures p Screening Colonoscopy - Darnell Vasquez MD Date/Time: 06/05/24 10:29 Surgeon: Darnell Vasquez MD Pre Op Diagnosis: Screening Patient Data Age: 78 Gender: M Height: 1.75 m Weight: 92 kg Last Vital Signs Temp 97.4 F L 06/05/24 09:21 Pulse 81 06/05/24 09:21 Resp 20 06/05/24 09:21 BP 137/82 06/05/24 09:21 Pulse Ox 99 06/05/24 09:21 O2 Del Method Room Air 06/05/24 09:21 Allergies Allergy/AdvReac Type Severity Reaction Status Date / Time Bumble Bee Allergy Unknown Swelling Uncoded 06/05/24 09:18 Home Medications ?Medication ?Instructions ?Recorded ?Confirmed ?Type atorvastatin 40 mg tablet 40 mg PO HS 02/08/19 06/05/24 History carvedilol 6.25 mg tablet 6.25 mg PO BID 12/03/22 06/05/24 History melatonin 5 mg tablet 5 mg PO HS PRN Insomnia 12/03/22 05/10/24 History amlodipine 2.5 mg tablet 2.5 mg PO DAILY 12/04/22 06/05/24 History clopidogrel 75 mg tablet 75 mg PO DAILY 12/04/22 06/05/24 History nitroglycerin 0.4 mg sublingual 0.4 mg sublingual DIRECTED PRN 12/04/22 05/10/24 History tablet Chest Pain Miralax 17 g PO DAILY 12/05/22 05/10/24 History aspirin 81 mg PO DAILY 12/05/22 06/05/24 History cholecalciferol (vitamin D3) 5,000 units PO DAILY 12/05/22 05/10/24 History cyanocobalamin (vitamin B-12) 1,000 mcg PO DAILY 12/05/22 05/10/24 History 1,000 mcg tablet (Vitamin B-12) fluorometholone 1 drp RIGHT EYE DAILY 12/05/22 06/05/24 History pantoprazole 40 mg tablet,delayed 40 mg PO DAILY 12/05/22 05/10/24 History release ramelteon 8 mg tablet 8 mg PO HS 12/05/22 05/10/24 History trazodone 50 mg tablet 50 mg PO HS 12/05/22 05/10/24 History valacyclovir 500 mg tablet 500 mg PO DAILY 12/05/22 06/05/24 History ferrous sulfate 325 mg (65 mg 325 mg PO DAILY #30 tabs 12/07/22 05/10/24 Rx iron) tablet,delayed release B-complex with vitamin C 1 tablet PO DAILY 05/10/24 06/05/24 History cholecalciferol (vitamin D3) 50 50 mcg PO DAILY 05/10/24 06/05/24 History mcg (2,000 unit) capsule (D3-2000) coQ10 (ubiquinol) 200 mg capsule 200 mg PO HS 05/10/24 06/05/24 History flaxseed oil 1 cap PO DAILY 05/10/24 06/05/24 History garlic 1,000 mg capsule 1,000 mg PO DAILY 05/10/24 06/05/24 History glucosamine-chondroitin 1 tablet PO DAILY 05/10/24 06/05/24 History lutein 25 mg-zeaxanthin 5 mg 1 cap PO DAILY 05/10/24 06/05/24 History capsule lysine 500 mg tablet (L-Lysine) 500 mg PO DAILY 05/10/24 06/05/24 History multivit with minerals-iron 18 1 tablet PO DAILY 05/10/24 06/05/24 History mg-folic ac 400 mcg-vit K 25 mcg tablet (Adults Multivitamin) olmesartan 20 mg tablet 20 mg PO DAILY 05/10/24 06/05/24 History omega 9-hmx-qvh-fish oil 1,000 mg 1 cap PO DAILY 05/10/24 06/05/24 History (120 mg-180 mg) capsule (Fish Oil) omega-3 240 fi-zhn-goy-cod liver 1 cap PO DAILY 05/10/24 06/05/24 History oil 1,000 mg-vit A-vit D3 capsule (cod liver oil) vitamin E 180 mg PO DAILY 05/10/24 06/05/24 History zinc gluconate 50 mg tablet 50 mg PO DAILY 05/10/24 06/05/24 History Patient hx anesthesia problems: none Family hx anesthesia problems: none Results Review: All pre-operative results and documents have been reviewed as part of the pre-operative evaluation. 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 08/14 at [place] Social History Social History Smoking status: Never smoker Substance use type: does not use Lack of Transportation: No Lack of Food: Never True Current Housing: I Have Housing Concerned About Future Housing: No Difficulty Paying Gas/Electric Bills: No Difficulty Paying for Meds: No Currently Unemployed: No Education: Decline to Answer Difficulty w/ Childcare or Family Care: No Living arrangements: alone Gender identity (if verbalized by the patient): Male Anes - Eval Final PreProcedure Day of Procedure 06/05/24 10:29 Patient weight: obese Heart: regular rate and rhythm Lungs: clear to auscultation Airway: Mallampati scale class II Neurological: alert and oriented Last oral intake: >/= 8 hours ASA classification: III Emergent: no Anesthetic plan: proceed Anesthesia type and monitoring: general GIVS and standard monitoring Results Review: All pre-operative results and documents have been reviewed as part of the pre-operative evaluation. Informed Consent: The patient's anesthetic plan and its attendant risks and benefits were discussed with the patient/family/POA. Questions were solicited and answers provided to the satisfaction of the patient/family/POA.
[2024-06-05] MEDS: SIMETHICONE ORAL SUSPENSION 20 MG/0.3 ML 30 ML BOTTLE 0.6 ML IRRIGATION (10:40)
[2024-06-05 10:50] VITALS: BP 98/61; PULSE 68; RESP 17; O2SAT 96
[2024-06-05 11:00] VITALS: BP 108/66; PULSE 67; RESP 16; O2SAT 99
[2024-06-05 11:10] VITALS: BP 125/72; PULSE 63; RESP 18; O2SAT 99
== END 2024-06-05 11:29 | disposition home or self-care (01) ==
PROVIDERS: PCP Internal Medicine; Referring Provider Internal Medicine; Visit Provider Internal Medicine Gastroenterology
PROC: 0DJD8ZZ Inspection of Lower Intestinal Tract, Via Natural or Artificial Opening Endoscopic (ICD-10-PCS; CPT 45378; principal; 2024-06-05 10:30)
DX: Z12.11 Encounter for screening for malignant neoplasm of colon (principal); K64.8 Other hemorrhoids; K57.30 Diverticulosis of large intestine without perforation or abscess without bleeding; E78.5 Hyperlipidemia, unspecified; I10 Essential (primary) hypertension; G47.33 Obstructive sleep apnea (adult) (pediatric); E66.9 Obesity, unspecified; Z68.30 Body mass index [BMI] 30.0-30.9, adult; Z79.02 Long term (current) use of antithrombotics/antiplatelets; Z79.82 Long term (current) use of aspirin; Z98.890 Other specified postprocedural states; Z95.5 Presence of coronary angioplasty implant and graft; Z86.0100 Personal history of colon polyps, unspecified; Z85.46 Personal history of malignant neoplasm of prostate
CPT/HCPCS: G0105; J2704; J7120